=== PATIENT | male | born 1940 | race Caucasian/White ===

== ENCOUNTER → 2023-10-05 16:39 | Outpatient (REF) | payer MEDICARE, BC, SELFPAY ==
[2023-10-05 17:23] LABS: Blood Urea Nitrogen 22 mg/dl (9-20); Calcium 8.8 mg/dl (8.4-10.2); Carbon Dioxide 26 mmol/L (22-30); Chloride 99 mmol/L (98-107); Glucose 131 mg/dl (70-99); Potassium 4.5 mmol/L (3.5-5.1); Sodium 133 mmol/L (135-145); eGFR > 60.00
[2023-10-05 17:31] LABS: NT-proBNP 3480 pg/ml
== END ==
LOC: REG 16:39
PROVIDERS: ATTENDING PHYSICIAN Internal Medicine Cardiovascular Disease; FAMILY PHYSICIAN Internal Medicine
DX: I50.20 Unspecified systolic (congestive) heart failure (principal)
CPT/HCPCS: 36415; 80048; 83880

== ENCOUNTER 2023-12-14 20:23 | Inpatient (IN) | payer MEDICARE, BC, SELFPAY ==
[2023-12-14 16:00] VITALS: BP 157/84
[2023-12-14 16:20] LABS: % Basophils 0.6 % (0-2); % Eosinophils 0.5 % (0-6); % Immature Granulocytes 0.9 % (0-0.5); % Lymphocytes 15.1 % (20.5-51.1); % Monocytes 10.3 % (1.7-9.3); % Neutrophils 72.6 % (42.2-75.2); Absolute Basophils 0.1 10^3/uL (0-0.2); Absolute Immature Granulocytes 0.1 10^3/uL (0-0.05); Absolute Lymphocytes 1.3 10^3/uL (1.2-3.4); Absolute Monocytes 0.9 10^3/uL (0.1-0.6); Absolute Neutrophils 6.3 10^3/uL (1.4-6.5); Hematocrit 41.1 % (39.0-52.0); Mean Corp Hgb Conc. 34.1 g/dL (33.0-37.0); Mean Corpuscular Hgb 32.3 pg (27.0-31.0); Mean Corpuscular Volume 94.7 fL (80.0-94.0); Mean Platelet Volume 9.7 fL (7.4-10.4); Nucleated Red Blood Cells % 0 % (-); Platelet Count 217 10^3/uL (130-400); Red Blood Cell Count 4.34 10^6/uL (4.70-6.10); Red Cell Dist. Width 13.6 % (11.5-14.5); White Blood Cell Count 8.7 10^3/uL (4.8-10.8)
[2023-12-14 16:39] LABS: ALT (SGPT) 25 U/L (0-50); AST (SGOT) 22 U/L (17-59); Albumin 3.8 g/dl (3.5-5.0); Alkaline Phosphatase 85 U/L (38-126); Blood Urea Nitrogen 18 mg/dl (9-20); Calcium 8.9 mg/dl (8.4-10.2); Carbon Dioxide 27 mmol/L (22-30); Chloride 99 mmol/L (98-107); Glucose 140 mg/dl (70-99); Potassium 3.9 mmol/L (3.5-5.1); Sodium 133 mmol/L (135-145); Total Bilirubin 0.6 mg/dl (0.2-1.3); Total Protein 6.2 g/dl (6.3-8.2); eGFR > 60.00
[2023-12-14 18:01] VITALS: BP 179/95
[2023-12-14 18:29] LABS: NT-proBNP 5390 pg/ml
--- NOTE | 2023-12-14 18:58 | ED.GENMED ---
History of Present Illness
General
Chief Complaint: Malaise
Source: patient
Exam Limitations: none
Time Seen by Provider: 12/14/23 17:43
Nursing documentation reviewed up to this point in time: agreed with
Travel History
Have you had any contact with someone who has COVID-19?: No
Do you have any symptoms of coronavirus? Fever > 100 degrees, chills, cough, shortness of breath, sore throat, loss of taste or smell, muscle aches, or headache?: No
History of Present Illness
History of Present Illness:
pt is a 83 y/o M with h/o afib on eliquis, CAD, HTN, HLD, chf
here with fatigue and dyspnea
ongoing for about 2 roxann weeks, worse the last week with lower pulse ox readings at home, in the 80s at times (88%)
normally has pulse ox 92%
no dx of copd
says that he has just felt really tired with any activity
he has also noticed swellin gin the feet and legs
he formerly was on lasix and says dr. banuelos said he could stop the lasix and take it only as needed so he stopped it about 6 mo ago
he has been trying to keep his weight down
but he does think his legs look puffy
no chest pain, cough, fever, chills, nausea, vomiting
lives at home with elderly female roommate who requires a lot of care
brought in by neighbor who is helping out
Past History
Past History
ED Past Medical History: CAD, HTN, Hypercholesterolemia and Seizures
Social History
Tobacco: Non-smoker
Personal:
Living: with family
Employment: Retired
Review of Systems
Review of Systems
Allergies reviewed?: Yes
Phy Exam
Physical Exam
Physical Exam:
GENERAL: Alert , in no apparent distress
EYE: pupils equal and reactive
NECK: Supple
ENT: o/p clr, mmm.
CARDIAC: Regular rate and rhythm .+ edema 2+ pittin gb/l LE
LUNGS: Clear breath sounds bilaterally, no acute respiratory distress, no wheezes/rales/rhonchi
ABDOMEN: Soft, without focal tenderness, no r/g, no cvat, normal bowel sounds
NEUROLOGICAL: Alert and oriented, no focal neuro deficits
SKIN: Warm and dry, skin intact.
MUSCULOSKELETAL: moderate edema, cool feet but with 2+ dp pulses. neg chelly's sign
PSYCH: Normal and appropriate interaction.
Course
Orders/Labs/Results
Orders:
Orders
12/14/23 16:10
CMP [Comprehensive Metabolic Panel] Urgent
Complete Blood Count/With Diff Urgent
12/14/23 18:02
NT-proBNP Urgent
12/14/23 18:57
CR Chest - 2 Views Urgent
Comment:
Reason For Exam: sob, wheezing
12/14/23 18:58
Electrocardiogram (*1) Urgent
Reason for Study: Shortness of Breath
EKG- Treatment ONCE
12/14/23 19:19
Furosemide [Lasix] 40 mg IV NOW STA
12/14/23 20:00
COVID-19 Antigen Stat
Source: Nasal Swab
Troponin I Q6H
Urinalysis Reflex To Culture Urgent
Date Specimen was Collected: 12/14/23
Time Specimen was Collected: 19:44
Urine Microscopic Reflex Cult Urgent
Influenza A+B Rapid Molecular Stat
KAITLIN Source: Nasal Swab
Specimen Description:
12/14/23 20:02
Admit/Transfer Patient As Directed
Co-Sign Provider:
Level of Care: Inpatient admission
Assign to:: Telemetry
Physician / Group: Anand
Diagnosis: Acute HFpEF
Reason for Telemetry: Subacute Heart Failure
Date to Stop Telemetry: 12/16/23
Time to Stop Telemetry: 11:00
Reason for Hospitalization: acute hfpef
Expected length of stay greater than two midnights?: Yes
ELOS- Estimated Length of Stay in days: 2
I certify the patient meets the requirements for IP care: Yes
12/14/23 20:03
Code Status As Directed
Resuscitation Status: Do not resuscitate
Reached after discussion with pt or family/Healthcare POA: Yes
DNR Bracelet Application ONCE
12/15/23 01:45
Troponin I Q6H
12/15/23 07:45
Troponin I Q6H
12/16/23 11:00
DC Protocol for Telemetry ONCE
Abnormal Lab Results
12/14/23 12/14/23
16:10 20:00
RBC 4.34 L 10^6/uL
(4.70-6.10)
MCV 94.7 H fL
(80.0-94.0)
MCH 32.3 H pg
(27.0-31.0)
Abs Immat Gran (auto) 0.1 H 10^3/uL
(0-0.05)
Absolute Monos (auto) 0.9 H 10^3/uL
(0.1-0.6)
Immature Gran % 0.9 H %
(0-0.5)
Lymphocytes % 15.1 L %
(20.5-51.1)
Monocytes % 10.3 H %
(1.7-9.3)
Sodium 133 L mmol/L
(135-145)
Creatinine 0.5 L mg/dL
(0.7-1.3)
Glucose 140 H mg/dl
(70-99)
Total Protein 6.2 L g/dl
(6.3-8.2)
Urine Ketones Trace A
(Negative)
Ur Occult Blood Reflex Trace A
(Negative)
Leukocyte Esterase Rfl Trace A
(Negative)
Urine Albumin (Reflex) 1+ A
(Neg - Trace)
12/14/23 16:10
12/14/23 16:10
Vital Signs
Initial and Last Documented VS:
Initial Vital Signs
Temp Pulse Resp BP Pulse Ox
97.5 F 79 18 157/84 94
12/14/23 16:00 12/14/23 16:00 12/14/23 16:00 12/14/23 16:00 12/14/23 16:00
Last Documented Vital Signs
Temp Pulse Resp BP Pulse Ox
97.5 F 90 22 199/95 97
12/14/23 16:00 12/14/23 21:30 12/14/23 21:30 12/14/23 20:01 12/14/23 21:30
MDM/Problems Addressed
Differential Diagnosis Includes:
CHF, hypoxia, pneumonia, copd
MDM/Problems Addressed:
83 y/o M with h/o afib on eliquis, cad, was on lasix up unti labout 6 mo ago whne he says lakisha told him he could stop it and take it only as needed; has had 2 weeks of inc dyspnea on exertion and some edema in legs; pulse ox down to 80sthe past
few days;
bnp 5000, mild edema on cxr, cardiomegaly; no cp; vitals stable rate controlled afib; lasix ordered and on 2L
will require admission for IV diuresis and o2;
appreciate radiology read on cxr showing pna
added abx
d/w hospitalist.
*Critical Care Note
Total Time (30-74mins, 75-104mins- exclusive of procedures): Not Applicable
ED Attending Note
-
Portions of this chart may have been created with voice recognition software.� Occasional wrong word or��sound alike� substitutions may have occurred due to the inherent limitations of voice recognition software.
Discharge Plan
Departure
Patient Disposition: Admit
Date of Disposition: 12/14/23
Time of Disposition: 19:24
Admit to: Telemetry
Presentation/result/management discussed w/ accepting MD/DO: Hospitalist
Condition: Fair
Covid-19: Not Applicable
Discharge Problem:
Dyspnea, Hypoxia, Acute exacerbation of CHF (congestive heart failure)
Interventions
Interventions:
*Risk Screen - Suicide Last Done: 12/14/23 18:37
*General Assessment Last Done: 12/14/23 18:37
*Neglect/Abuse Screening Last Done: 12/14/23 18:37
ED- Fall Risk Assessment Last Done: 12/14/23 18:37
*ED COVID-19 Vaccine History Last Done: 12/14/23 20:23
[2023-12-14 19:00] VITALS: BP 184/88
--- NOTE | 2023-12-14 19:30 | HPS.HSE ---
Addendum entered and electronically signed by Chelle Michel DO 12/14/23 21:34:
A/P addendum:
CXR noting possible LLL pneumonia. Pt afebrile wtihout leukocytosis
He was ordered rocephin/azithromycin x 1 dose in ER
Will check procalcitonin with plan to continue Abx if elevated.
Original Note:
Family Physician
-
Family Physician: Jamil Villagomez
Chief Complaint
-
HE x 2 weeks
History of Present Illness
83yo M with PMH HFpEF (TTE 09/2023 EF improvement to 50-55%, Mild/Mod AR/MR/TR, PaSP increase to 48mmHg), Permanent Atrial Fibrillation on Eliquis, CAD s/p CABG (2015), HTN/HLD, Hx Seizures presents to ER with friend at bedside for support. Pt lives
with an elderly friend and ambulates with cane at baseline. Over last few months he has had worsening HE, conversational dyspnea, LE edema with orthopnea and nonproductive cough. +mild wheezing complaint. Denies home oxygen or TRINA/cpap history. He
states in July he followed with web site administrator Dr. Arenas who stated that he could cut down his lasix; he thus has taken it very infrequently since. He does report coughing with 'eating cookies' denying past history of dysphagia. Denies fever,
chills, dizziness/LH, CP, Palps, abd pain, n/v/d/c, dysuria, calf or leg pain. He incidentally reports a left eye infection s/p course of keflex a few weeks ago
ER course: Pt presents with RR 28, Personally removed NC in ER with observation of saturation to 87% RA, improved on 2LNC. Other V.S.S. Na 133, BUN/Cr 180.5, BG 140, BNP 5390, WBC 8.7K, Hgb 14.0 g/dL. CXR Cardiomegaly, possible perivascular
congestion on personal review. S/P 40mg IV lasix in ER.
Medical History
Past Medical History
Past Medical History: Reports Other (HFpEF (TTE 09/2023 EF improvement to 50-55%, Mild/Mod AR/MR/TR, PaSP increase to 48mmHg), Permanent Atrial Fibrillation on Eliquis, HTN/HLD, Hx Seizures)
Past Surgical History: Reports Other (CABG (2016), Cataracts)
Social History
Tobacco: Non-smoker
Alcohol: Daily (drinking 1 glass of scotch daily, denies liver disease. )
Drug: None
Personal: Single
Living: Other (Friend - Sofie)
Family History
Family History: Other (Father with CAD s/p [place], heart failure)
Allergies / Home Medications
Allergies reflects when Allergies were last updated in [employer].
Home Medications with original date entered in [employer]
Allergy/Medication List:
Allergies
Allergy/AdvReac Type Severity Reaction Status Date / Time
No Known Allergies Allergy Verified 10/01/21 18:15
Home Medications
ascorbic acid (vitamin C) 500 mg tablet (Vitamin C) 500 mg PO DAILY Supplement 07/19/16
cyanocobalamin (vitamin B-12) 1,000 mcg tablet 1,000 mcg PO DAILY Supplement 07/19/16
apixaban 5 mg tablet (Eliquis) 5 mg PO BID Blood clot prevention/tx 10/02/21
carbamazepine 200 mg tablet 200 mg PO TID Seizures 10/02/21
lisinopril 10 mg tablet 10 mg PO DAILY Heart Failure #30 tabs 10/04/21
acetaminophen 500 mg tablet 1,000 mg PO HS 12/14/23
acetaminophen 500 mg tablet 500 mg PO Q4H PRN mild pain 12/14/23
calcium carbonate 500 mg PO DAILY 12/14/23
furosemide 20 mg tablet 20 mg PO DAILY PRN swelling 12/14/23
metoprolol succinate 50 mg tablet,extended release 24 hr 50 mg PO HS 12/14/23
multivitamin 1 tab PO DAILY 12/14/23
nitroglycerin 0.4 mg sublingual tablet 0.4 mg sublingual Q5GU2TES PRN chest pain 12/14/23
rosuvastatin 20 mg tablet 20 mg PO DAILY 12/14/23
Review of Systems
-
A 12 point ROS was completed and negative except as noted: Yes
Physical Exam
Vital Signs
Vital Signs
Temp Pulse Resp BP Pulse Ox
97.5 F 73 24 179/95 96
12/14/23 16:00 12/14/23 18:30 12/14/23 18:30 12/14/23 18:01 12/14/23 18:30
Physical Exam
General: Well Developed, Well Nourished and No Apparent Distress
HEENT: NormoCephalic, Moist mucous membranes, Atraumatic, PERRLA and Other (Left eye skin tag)
Respiratory: Crackles (mild bibasilar crackles) and Other (no wheezing, or accessory muscle use. )
Cardiac: S1/S2, Regular Rhythm and Other (Sternotomy incision well approximated. ); No Murmur or Rub
GI: Soft, Non Tender, Non Distended, Normal Bowel Sounds and Other (+obese. ); No Organomegaly
Rectal: Deferred by Provider
Genito-urinary: No No costovertebral tender or Charles
Musculoskeletal: No Clubbing, No Cyanosis, Edema, Left Lower Extremity (4+), Edema, Right Lower Extremity (4+) and No Edema
Skin: Warm and Dry; No Rash
Neuro: Awake, Alert, Oriented, AO x 3, No Motor Deficits and Nonfocal/grossly intact
Hematologic/Lymphatic: No Lymphadenopathy
Psych: Calm
Laboratory Results
-
12/14/23 16:10
12/14/23 16:10
Laboratory Results
Total Bilirubin 0.6 mg/dl (0.2-1.3) 12/14/23 16:10
AST 22 U/L (17-59) 12/14/23 16:10
ALT 25 U/L (0-50) 12/14/23 16:10
Alkaline Phosphatase 85 U/L (38-126) 12/14/23 16:10
Data Reviewed
-
Diagnostic Radiology: Image Personally Visualized and interpreted
Medical Tests (Nuc Med, Echo, EKG etc): Image Personally Visualized and interpreted
Lab Data: Labs Reviewed by me
Old Records: Reviewed
Impression/Plan
-
Acute on Chronic HFpEF
- 4+ pitting edema with associated SOB/HE x months, worsening recently
- BNP 5390. CXR with cardiomegaly, personal review with perivasc congestion
- Recent TTE 09/2023: EF 45-50% improved to 50-55%, Mild-Mod AR/MR/TR, PaSP increased 38->48mmHg; will defer repeat to cardio
- S/P 40mg IV lasix in ER. Will order 40mg IV BID. Trend I&O and Daily wts
- Continue GDMT: JABARI-I, BB
- 1200cc fluid restriction
- Consult Cardiology
Acute Hypoxic Respiratory Failure
- Likely 2/2 above. Sat 87% RA on personal evaluation. Improved on 2LNC
- Wean as tolerated with treatment as above
- Check COVID/Flu for completeness
- Continue pulm toiletting: Nebs, IS
Hyponatremia
- Na 133. Likely hypoosmotic hypervolemic etiology
- Trend with IV diuresis
Atrial Fibrillation
- Permanent. Continue home BB/eliquis.
Hx CAD s/p CABG / HTN / HLD
- Continue home aspirin/statin/BB/JABARI-I
- Continue home statin
Seizure Disorder - stable on home carbamazepine
Diet: Cardiac, 1200cc fluid restriction
DVT Ppx: Eliquis
Code Status: DNR/DNI, confirmed with patient at bedside.
[2023-12-14 20:01] VITALS: BP 199/95
[2023-12-14] MEDS: LASIX 40 MG IV (20:01)
[2023-12-14 20:03] VITALS: BMI 26.1
[2023-12-14 20:12] LABS: Urine Albumin 1+ (Neg - Trace); Urine Bilirubin Negative (Negative); Urine Character Clear (Clear); Urine Color Yellow; Urine Glucose Negative (Negative); Urine Ketone Trace (Negative); Urine Leukocyte Trace (Negative); Urine Nitrite Negative (Negative); Urine Occult Blood Trace (Negative); Urine Urobilinogen Negative (Neg - 1+)
[2023-12-14 20:20] LABS: Urine Mucus Few
[2023-12-14 20:21] LABS: Urine Red Blood Cell 0-2 /HPF (0-2); Urine White Cell 0-2 /HPF (0-5)
[2023-12-14 20:28] LABS: COVID-19 Antigen Negative (Negative)
[2023-12-14 20:36] LABS: Troponin I < 0.012 ng/ml
[2023-12-14] MEDS: ROCEPHIN 1000 MG IV (21:48)
[2023-12-14] MEDS: ZITHROMAX INFUSION 250 IV (21:53)
[2023-12-14 22:29] VITALS: BMI 24.9
[2023-12-14 23:02] VITALS: BMI 24.9
[2023-12-14 23:10] VITALS: BP 163/87
[2023-12-14] MEDS: TOPROL XL 50 MG PO (23:43)
[2023-12-14] MEDS: TYLENOL 1000 MG PO (23:43)
[2023-12-14] MEDS: ELIQUIS 5 MG PO (23:43)
[2023-12-14] MEDS: TEGRETOL 200 MG PO (23:43)
--- NOTE | 2023-12-15 | PTCARENOTE ---
Patient admitted to room 401-1. Ambulatory from stretcher to bed with cane and one assist. On 2l of oxygen via NC, saturating 96%. +2 edema in lower extremities, +3 to left foot. Patient given lasix in ED, condom cath applied #25. He denies
discomfort. Patient instructed to ring prior to getting out of bed, he verbalized understanding. Call sykes in reach.
[2023-12-15 03:15] LABS: Troponin I 0.014 ng/ml
[2023-12-15 03:55] VITALS: BP 134/79
[2023-12-15 06:00] VITALS: BMI 24.9
[2023-12-15 07:00] VITALS: BP 161/82
--- NOTE | 2023-12-15 07:56 | W.PN.HOSP.TC ---
Today's Communication/Plan
-
see bold
Assessment / Plan
Assessment / Plan
Gen: NAD, Awake and alert
Eyes: EOMI, PERRLA, no scleral icterus.
Neck: supple.
CV: tachy, irreg/irreg, +S1/S2, no m/r/g.
Resp: rales in the bases, L>R
Abd: +BS, soft, NT, ND
Skin: No rashes. 2-3+ B/L LE edema
Neuro: CN 2-12 intact, non-focal.
Psych: Normal mood and affect.
CXR: Findings suggesting a new moderate left lower lobe pneumonia.
Acute hypoxemic respiratory insufficiency due to acute on Chronic HFpEF and possibly LLL PNA:
-4+ pitting edema with associated SOB/HE x months, worsening recently
-COVID/Flu NEG
-proBNP 5390
-recent TTE 09/2023: EF 45-50% improved to 50-55%, Mild-Mod AR/MR/TR, PASP increased 38->48mmHg; will defer repeat to cardio
-cont IV lasix
-daily wts, I/Os, FR 1200cc/day
-cont BB
-currently on 2L NC O2
-c/s Cardiology
-s/p Azithro/Rocephin, awaiting procal (doubt bacterial PNA)
Other problems:
Hyponatremia, mild
Permanent Atrial Fibrillation: BB/eliquis
CAD s/p CABG: Cont BB/statin
Essential HTN: cont ACEi/BB
HLD: cont statin
Seizure Disorder: Cont carbamazepine
DNR/Eliquis
Anticipated Discharge: 24 - 48 hours
Subjective/Interval History
-
Date of Service: December 15, 2023
Reports mild SOB. Denies CP.
Objective Data
-
Labs:
Laboratory Results
12/15/23
05:38
WBC Pending
Hgb Pending
Hct Pending
Plt Count Pending
Sodium Pending
Potassium Pending
Chloride Pending
Carbon Dioxide Pending
BUN Pending
Creatinine Pending
Glucose Pending
Calcium Pending
Vital Signs:
Vital Signs
Temp Pulse Resp BP Pulse Ox
98.8 F 73 18 134/79 95
12/15/23 03:55 12/15/23 07:48 12/15/23 07:48 12/15/23 03:55 12/15/23 07:48
I&O
12/14/23 12/15/23 12/16/23
06:59 06:59 06:59
Intake Total 240 / 240
Output Total 1750 / 1750
Balance -1510 / -1510
--- NOTE | 2023-12-15 08:24 | CON.CAR ---
Addendum entered and electronically signed by Spenser Mijares MD 12/15/23 11:03:
I saw and examined the patient.
The RIG SITE ENGINEER's note was reviewed and I agree with the note.
Comment: 83M with HFmEF admitted with HF. As outpatient, he's not a fan of diuretic and I wondered if I had him euvolemic at goal weight. It seems, in retrospect, that I did not.
- diurese to new goal weight
- update echocardiogram given clinical change, labile EF, and moderate valve disease
Original Note:
Consultation
Consultation Request
Date/Time Consultation Requested: 12/14/232248
Date/Time Consultation Performed: 12/15/23830
Requesting Provider: Dr. Michel
Performing Provider: Tonia LOFTON for Dr. Mijares
Reason for Consultation: CHF
Medical History
-
Chief Complaint: SOB
History of Present Illness:
83 y/o male with HFimpEF (most recent EF 50-55%), mild to moderate MR, AR, TR, CAD with hx CABG 2016, permanent AFIB on Eliquis, hypertension, dyslipidemia who is here for SOB with sats in 80's on his pulse ox. He has had productive cough. He is
admitted for management of CHF exacerbation. Also concern for PNA on CXR, so ABX given while procal is pending. He denies any fever or chills. He denies any weight gain. He does have LE edema and abdominal bloating. Does endorse some PND. Only
occasionally takes lasix as OP.
Past Medical History
Past Medical History: Arrhythmias, CAD, CHF, HTN, Hypercholesterolemia and Valvular Disease
Social History
Tobacco: Non-Smoker
Family History
Family History: Reviewed & Not Pertinent
Allergies / Home Medications
Allergy/AdvReac Type Severity Reaction Status Date / Time
No Known Allergies Allergy Verified 10/01/21 18:15
�Medication �Instructions �Recorded �Confirmed �Type
ascorbic acid (vitamin C) 500 mg 500 mg PO DAILY Supplement 07/19/16 12/14/23 History
tablet (Vitamin C)
cyanocobalamin (vitamin B-12) 1,000 mcg PO DAILY Supplement 07/19/16 12/14/23 History
1,000 mcg tablet
apixaban 5 mg tablet (Eliquis) 5 mg PO BID Blood clot 10/02/21 12/14/23 History
prevention/tx
carbamazepine 200 mg tablet 200 mg PO TID Seizures 10/02/21 12/14/23 History
lisinopril 10 mg tablet 10 mg PO DAILY Heart Failure #30 10/04/21 12/14/23 Rx
tabs
acetaminophen 500 mg tablet 1,000 mg PO HS Pain 12/14/23 12/14/23 History
acetaminophen 500 mg tablet 500 mg PO Q4H PRN mild pain 12/14/23 12/14/23 History
calcium carbonate 500 mg PO DAILY Supplement 12/14/23 12/14/23 History
furosemide 20 mg tablet 20 mg PO DAILY PRN swelling 12/14/23 12/14/23 History
metoprolol succinate 50 mg 50 mg PO HS Blood Pressure 12/14/23 12/14/23 History
tablet,extended release 24 hr
multivitamin 1 tab PO DAILY Supplement 12/14/23 12/14/23 History
nitroglycerin 0.4 mg sublingual 0.4 mg sublingual [id number] PRN 12/14/23 12/14/23 History
tablet chest pain
rosuvastatin 20 mg tablet 20 mg PO DAILY High Cholesterol 12/14/23 12/14/23 History
Review of Systems
-
History Source: Patient
All other systems: Negative unless noted
Respiratory: Cough and Trouble Breathing
Musculoskeletal: Edema
Physical Exam
Vital Signs
Temp Pulse Resp BP Pulse Ox
97.7 F 73 18 161/82 95
12/15/23 07:00 12/15/23 07:48 12/15/23 07:48 12/15/23 07:00 12/15/23 07:48
Lab Results
Troponin I 0.014 ng/ml 12/15/23 01:43
Mvf-P-Ohrzxobpuyy Pept 5390 pg/ml 12/14/23 18:02
Physical Exam
General: Well Developed, Well Nourished and No Apparent Distress
HEENT: Normocephalic and Anicteric
Respiratory: Other (diminished to b/l bases; on O2 by NC)
Cardiac: Irregular Rhythm and Peripheral Edema (moderate BLE edema)
Genito-urinary: Clear Urine
Musculoskeletal: Edema
Skin: Warm and Dry
Neuro: Awake, Alert and Oriented
Psych: Calm
Impression / Plan
-
Hosri-lm-lgfnhkx HFimpEF:
-BNP elevated, LE edema noted. His weight is not up, actually slightly down. Has considered his dry weight 182 and he is currently 178, so likely need to adjust dry weight goal.
-Echo 09/20/23: EF 50-55%. Mild/moderate mitral regurgitation. Mild to moderate aortic regurgitation. Mild/moderate tricuspid regurgitation. PAP 48 mmHG, Dilated aortic root and ascending aorta (SOV 4.7 cm, ST junction 4.3 cm, Asc Ao 4.5 cm).
-agree with IV diuresis, which requires intensive monitoring- not ordered, so I will order once AM labs are back
Possible PNA:
-no fever chills
-s/p IV ABX, awaiting procalcitonin
-per primary
CAD s/p CABG:
-stable without CP
-continue Eliquis, BB, statin
Permanent AFIB:
-rate-controlled
-continue metoprolol and Eliquis
Data Reviewed
-
EKG: Tracing Personally Visualized and interpreted (AFIB 72 BPM, no acute change from previous)
Radiology: Report Reviewed by me (CXR: Findings suggestinga new moderate left lower lobe pneumonia. Cardiomegaly. Stable)
Medical Tests (Nuc Med, Echo etc): Report Reviewed by me (Echo 09/20/23: EF 50-55%. Mild/moderate mitral regurgitation. Mild to moderate aortic regurgitation. Mild/moderate tricuspid regurgitation. PAP 48 mmHG, Dilated aortic root and ascending aorta
(SOV 4.7 cm, ST junction 4.3 cm, Asc Ao 4.5 cm).)
Labs: Labs Reviewed by me
[2023-12-15 08:44] LABS: % Basophils 0.8 % (0-2); % Eosinophils 0.9 % (0-6); % Lymphocytes 17.6 % (20.5-51.1); % Monocytes 14.9 % (1.7-9.3); % Neutrophils 64.8 % (42.2-75.2); Absolute Basophils 0.1 10^3/uL (0-0.2); Absolute Eosinophils 0.1 10^3/uL (0-0.7); Absolute Immature Granulocytes 0.1 10^3/uL (0-0.05); Absolute Lymphocytes 1.4 10^3/uL (1.2-3.4); Absolute Monocytes 1.2 10^3/uL (0.1-0.6); Absolute Neutrophils 5.1 10^3/uL (1.4-6.5); Hematocrit 39.7 % (39.0-52.0); Hemoglobin 13.5 g/dL (13.0-18.0); Mean Corpuscular Hgb 31.8 pg (27.0-31.0); Mean Corpuscular Volume 93.6 fL (80.0-94.0); Mean Platelet Volume 10.4 fL (7.4-10.4); Nucleated Red Blood Cells % 0 % (-); Platelet Count 212 10^3/uL (130-400); Red Blood Cell Count 4.24 10^6/uL (4.70-6.10); Red Cell Dist. Width 13.6 % (11.5-14.5); White Blood Cell Count 7.9 10^3/uL (4.8-10.8)
[2023-12-15 08:46] LABS: Troponin I 0.013 ng/ml
[2023-12-15] MEDS: OSCAL CAL 500 500 MG PO (08:53)
[2023-12-15] MEDS: CRESTOR 20 MG PO (08:53)
[2023-12-15] MEDS: ZESTRIL 10 MG PO (08:53)
[2023-12-15] MEDS: VITAMIN B-12 1000 MCG PO (08:53)
[2023-12-15] MEDS: VITAMIN C 500 MG PO (08:54)
[2023-12-15] MEDS: THERAGRAN 1 TABLET PO (08:54)
[2023-12-15] MEDS: TEGRETOL 200 MG PO ×3 (08:54→22:13)
[2023-12-15] MEDS: ELIQUIS 5 MG PO ×2 (08:54→21:09)
--- NOTE | 2023-12-15 09:52 | PTOTSP ---
Addendum entered and electronically signed by ST Remberto 12/15/23 09:59:
Recommendations continued:
4) Consider VSE to r/o silent aspiration given recent CXR
Original Note:
Speech Therapy
Patient's speech and language appeared to be WNL. Patient did appear to be mildly confused.
Swallowing Complaints: Patient stated that he occasionally has difficulty with solids when he has excessive mucous. Patient reports having seasonal allergies which causes his post-nasal drip.
Swallowing Function: PHARMACY MANAGER observed patient with several bites of cracker and sips of thin liquids in which patient appeared to tolerate as he did not exhibit any overt clinical s/sx of aspiration or difficulty with mastication/ manipulation. Of note,
when prompted to cough during oral motor evaluation, large mucous was expelled from the oral cavity.
Recommendations:
1) Continuation of regular consistency solids and thin liquids
2) Standard aspiration precautions
3) Medications as tolerated
Plan: PHARMACY MANAGER will continue to follow; pending hospitalization.
[2023-12-15 10:40] LABS: Procalcitonin < 0.05 ng/ml (0.0-0.25)
[2023-12-15 10:45] LABS: Blood Urea Nitrogen 22 mg/dl (9-20); Calcium 8.8 mg/dl (8.4-10.2); Carbon Dioxide 30 mmol/L (22-30); Chloride 99 mmol/L (98-107); Estimated Creatinine Clearance 99 ml/min; Glucose 68 mg/dl (70-99); HDL Cholesterol 67 mg/dl; LDL Cholesterol, Calculated 75 mg/dl; Potassium 3.5 mmol/L (3.5-5.1); Sodium 136 mmol/L (135-145); Total Cholesterol 161 mg/dl (50-199); Triglyceride 99 mg/dl (10-149); Very Low Density Lipoprotein 19 mg/dl (0-30); eGFR > 60.00
[2023-12-15 11:00] VITALS: BP 138/72
[2023-12-15 11:52] LABS: Glycohemoglobin (HgbA1c) 5.8 % (4.0-5.6)
[2023-12-15] MEDS: LASIX 40 MG IV ×2 (12:06→16:04)
[2023-12-15] MEDS: FLUSH (NSS) 2 FLUSH IV ×2 (12:07→16:05)
[2023-12-15] MEDS: KCL 20 MEQ PO ×2 (13:44→16:04)
[2023-12-15 15:00] VITALS: BP 154/74
--- NOTE | 2023-12-15 16:12 | CM ---
Patient seen at bedside. Patient states that he lives with his significant other in a 2 story home. CM attempted to reach Sig other and was unable to do so, no VM able to be left. Patient confirmed Dr. Villagomez was his physician and he uses the [facility]
on [facility]. Patient asked for VN referral at discharge and indicated that he does not have any home O2 at this time. Patient denied ever going to SNF and stated that he did not have [facility] in the past. CM will continue to try to
reach patient significant other and will continue to follow for discharge planning needs.
Plan; home with VN vs SNF; watch for home O2 needs.
[2023-12-15 19:38] VITALS: BP 117/66
[2023-12-15] MEDS: TYLENOL 1000 MG PO (22:13)
[2023-12-15] MEDS: TOPROL XL 50 MG PO (22:14)
[2023-12-15 23:55] VITALS: BP 127/82
[2023-12-16 03:46] VITALS: BP 140/78
[2023-12-16 05:31] LABS: Blood Urea Nitrogen 33 mg/dl (9-20); Calcium 8.6 mg/dl (8.4-10.2); Carbon Dioxide 34 mmol/L (22-30); Chloride 98 mmol/L (98-107); Estimated Creatinine Clearance 85 ml/min; Glucose 95 mg/dl (70-99); Potassium 4.3 mmol/L (3.5-5.1); Sodium 135 mmol/L (135-145); eGFR > 60.00
[2023-12-16 06:00] VITALS: BMI 24.3
[2023-12-16 07:19] VITALS: BP 111/75
[2023-12-16] MEDS: VITAMIN C 500 MG PO (08:38)
[2023-12-16] MEDS: ZESTRIL 10 MG PO (08:38)
[2023-12-16] MEDS: THERAGRAN 1 TABLET PO (08:38)
[2023-12-16] MEDS: LASIX 40 MG IV ×2 (08:39→17:05)
[2023-12-16] MEDS: CRESTOR 20 MG PO (08:41)
[2023-12-16] MEDS: ELIQUIS 5 MG PO ×2 (08:41→19:58)
[2023-12-16] MEDS: TEGRETOL 200 MG PO ×3 (08:41→21:54)
[2023-12-16] MEDS: OSCAL CAL 500 500 MG PO (08:42)
[2023-12-16] MEDS: VITAMIN B-12 1000 MCG PO (08:42)
--- NOTE | 2023-12-16 10:04 | W.PN.CD ---
Today's Communication / Plan
-
- continue diuresis to new goal weight
- when I talked to him about a new goal weight, new dose, etc., he said,'I think I just have to take the medicine regularly...'
- update echocardiogram
Impression / Plan
-
Impression: 83M with HFmEF admitted with HF. As outpatient, he's not a fan of diuretic and I wondered if I had him euvolemic at goal weight - I did not.
Plan
Wbitt-ki-wffibqg HFimpEF:
- continue diuresis to new goal weight
- daily weights, I/o
- when I talked to him about a new goal weight, new dose, etc., he said,'I think I just have to take the medicine regularly...'
HFmEF
- BB/JABARI
- we can consider SLGT2i and MRA as OP
- update echocardiogram given clinical change, labile EF, and moderate valve disease
Possible PNA:
CAD s/p CABG:
-stable without CP
-continue Eliquis, BB, statin
Permanent AFIB:
-rate-controlled
-continue metoprolol and Eliquis
Subjective: Dyspnea improved
Data:
Echo 09/20/23: EF 50-55%. Mild/moderate mitral regurgitation. Mild to moderate aortic regurgitation. Mild/moderate tricuspid regurgitation. PAP 48 mmHG, Dilated aortic root and ascending aorta (SOV 4.7 cm, ST junction 4.3 cm, Asc Ao 4.5 cm).
Laboratory Data
12/15/23 12/16/23
05:38 04:32
Hgb 13.5
Creatinine 0.7
Selected Entries
12/14/23
22:29 12/15/23
06:00 12/16/23
06:00
Actual Weight 178 lb 5 oz 178 lb 7 oz 174 lb
Generic Name Dose Route Start Last Admin
Trade Name Freq PRN Reason Stop Dose Admin
Apixaban 5 mg 12/14/23 22:29 12/16/23 08:41
Apixaban (Eliquis) 5 Mg Tablet PO 01/11/24 22:28 5 mg
BID DEBORAH
Lisinopril 10 mg 12/15/23 08:00 12/16/23 08:38
Lisinopril 10 Mg Tablet PO 01/12/24 07:59 10 mg
DAILY DEBORAH
Metoprolol Succinate 50 mg 12/14/23 22:29 12/15/23 22:14
Metoprolol 50 Mg Extended Release Tablet PO 01/11/24 22:28 50 mg
HS DEBORAH
Rosuvastatin Calcium 20 mg 12/15/23 08:00 12/16/23 08:41
Rosuvastatin (Crestor) 20 Mg Tablet PO 01/12/24 07:59 20 mg
DAILY DEBORAH
Furosemide 40 mg 12/15/23 12:00 12/16/23 08:39
Furosemide 40 Mg (10 Mg/Ml) 4 Ml Vial IV 01/12/24 11:59 40 mg
BID AT 0800,1600 DEBORAH
Physical Exam
Vital Signs/Labs
Vital Signs
Temp Pulse Resp BP Pulse Ox
36.4 C 73 16 111/75 98
12/16/23 07:19 12/16/23 08:39 12/16/23 07:19 12/16/23 08:39 12/16/23 07:19
12/15/23 12/16/23 12/17/23
06:59 06:59 06:59
Actual Weight 178 lb 7 oz 174 lb
12/15/23 05:38
12/16/23 04:32
Magnesium 2.0 mg/dl (1.6-2.3) 12/15/23 05:38
Triglycerides 99 mg/dl (10-149) 12/15/23 05:38
LDL Cholesterol, Calc 75 mg/dl 12/15/23 05:38
VLDL Cholesterol, Calc 19 mg/dl (0-30) 12/15/23 05:38
HDL Cholesterol 67 mg/dl 12/15/23 05:38
12/14/23
18:02
Uqt-C-Vrayjeietoa Pept 5390
LAB Results
12/14/23 12/15/23 12/15/23
20:00 01:43 07:32
Troponin I < 0.012 0.014 0.013
Physical Exam
Constitutional: No acute distress
EENT: Anicteric and Moist mucous membranes
Cardiovascular: Systolic murmur absent, Diastolic murmur absent, Rhythm/rate is irregular and Pedal edema present
Respiratory: Respiratory effort normal
GI: Soft, Distention absent, Non tender and Normal bowel sounds
Neuro/Psych: Alert and Oriented
Data Reviewed
-
Date of Service: December 16, 2023
[2023-12-16 11:42] VITALS: BP 121/69
--- NOTE | 2023-12-16 13:10 | W.PN.HOSP.TC ---
Today's Communication/Plan
-
Diuresis
Rpt CXR
ECHO in am
Assessment / Plan
Assessment / Plan
CVS: S1-S2 normal, sm at apex
Chest: rales left
Abdomen: Soft, NT / Bowel sounds present
Extremities: B/L LE edema
ADULT PSYCHIATRIST: Non focal exam
CXR: Findings suggesting a new moderate left lower lobe pneumonia.
#Acute hypoxemic respiratory insufficiency due to acute on Chronic HFpEF and possibly LLL PNA:
-4+ pitting edema with associated SOB/HE x months, worsening recently
-COVID/Flu NEG
-proBNP 5390
-recent TTE 09/2023: EF 45-50% improved to 50-55%, Mild-Mod AR/MR/TR, PASP increased 38->48mmHg; will defer repeat to cardio
-cont IV lasix
-daily wts, I/Os, FR 1200cc/day
-cont BB
-currently on 2L [place] O2, wean as tolerated
-Cardiology following
-Repeat echo
-s/p Azithro/Rocephin
-Rpt CXR, if showing Pneumonia, will restart AB (procal not always reliable )
-Pt has productive cough
# Mitral regurgitation
#Hyponatremia, mild, likely from CHF
#Permanent Atrial Fibrillation: BB/Eliquis
#CAD s/p CABG: Cont BB/statin
#Essential HTN: cont ACEi/BB
#HLD: cont statin
#Seizure Disorder: Cont carbamazepine
#Chronic back pain and sciatica
#DVT Prophylaxis-Eliquis
#DNR
Anticipated Discharge: 24 - 48 hours
Subjective/Interval History
-
Date of Service: December 16, 2023
Objective Data
-
Labs:
Laboratory Results
12/16/23
04:32
Sodium 135
Potassium 4.3
Chloride 98
Carbon Dioxide 34 H
BUN 33 H
Creatinine 0.7
Glucose 95
Calcium 8.6
Vital Signs:
Vital Signs
Temp Pulse Resp BP Pulse Ox
97.7 F 66 17 121/69 97
12/16/23 11:42 12/16/23 11:42 12/16/23 11:42 12/16/23 11:42 12/16/23 11:42
I&O
12/15/23 12/16/23 12/17/23
06:59 06:59 06:59
Intake Total 240 / 240 1260 / 1260
Output Total 1750 / 1750 3325 / 3325
Balance -1510 / -1510 -2064 / -2064
--- NOTE | 2023-12-16 13:48 | PTCARENOTE ---
Reviewed medications with patient's daughter. Toprol should be decreased to 25 mg po daily and he takes it in the evening. MD notified. Dose reduced - timing should be evening tomorrow. Watch heart rate and maintain tele. Primidone 50 mg he also
takes in the evening. MD notified and ordered. First dose to be taken this evening.
[2023-12-16 15:00] VITALS: BP 111/61
[2023-12-16 19:00] VITALS: BP 104/70
[2023-12-16] MEDS: TYLENOL 1000 MG PO (21:54)
[2023-12-16] MEDS: TOPROL XL 50 MG PO (21:55)
[2023-12-16 23:08] VITALS: BP 158/78
[2023-12-17] VITALS (8 sets, daily range): BP systolic 120–156; BP diastolic 65–81; PULSE 73–97; O2SAT 95–96; BMI 24.0
--- NOTE | 2023-12-17 07:54 | W.PN.CD ---
Today's Communication / Plan
-
po lasix today
wean oxygen, if unable resume IV lasix
echo
possible discharge today vs tomorrow
Impression / Plan
-
Impression: 83M with HFmEF admitted with HF. As outpatient, he's not a fan of diuretic and I wondered if I had him euvolemic at goal weight - I did not.
Plan
Avvdf-pi-yspfhcz HFimpEF:
- continue diuresis to new goal weight
-Dr Mijares transitioned to 40mg po today, if can wean off oxygen would stick with this for discharge and new dry weight
- daily weights, I/o
- Per discussions with Dr Mijares, med compliance seems to be an issue.
HFmEF
- BB/JABARI
- we can consider SLGT2i and MRA as OP
- update echocardiogram given clinical change, labile EF, and moderate valve disease
CAD s/p CABG:
-stable without CP
-continue Eliquis, BB, statin
Permanent AFIB:
-rate-controlled
-continue metoprolol and Eliquis
Subjective: Dyspnea improved, he is not enjoying oxygen therapy
Data:
Echo 09/20/23: EF 50-55%. Mild/moderate mitral regurgitation. Mild to moderate aortic regurgitation. Mild/moderate tricuspid regurgitation. PAP 48 mmHG, Dilated aortic root and ascending aorta (SOV 4.7 cm, ST junction 4.3 cm, Asc Ao 4.5 cm).
Laboratory Data
12/15/23 12/16/23
05:38 04:32
Hgb 13.5
Creatinine 0.7
Selected Entries
12/14/23
22:29 12/15/23
06:00 12/16/23
06:00
Actual Weight 178 lb 5 oz 178 lb 7 oz 174 lb
Generic Name Dose Route Start Last Admin
Trade Name Freq PRN Reason Stop Dose Admin
Apixaban 5 mg 12/14/23 22:29 12/16/23 08:41
Apixaban (Eliquis) 5 Mg Tablet PO 01/11/24 22:28 5 mg
BID DEBORHA
Lisinopril 10 mg 12/15/23 08:00 12/16/23 08:38
Lisinopril 10 Mg Tablet PO 01/12/24 07:59 10 mg
DAILY DEBORAH
Metoprolol Succinate 50 mg 12/14/23 22:29 12/15/23 22:14
Metoprolol 50 Mg Extended Release Tablet PO 01/11/24 22:28 50 mg
HS DEBORAH
Rosuvastatin Calcium 20 mg 12/15/23 08:00 12/16/23 08:41
Rosuvastatin (Crestor) 20 Mg Tablet PO 01/12/24 07:59 20 mg
DAILY DEBORAH
Furosemide 40 mg 12/15/23 12:00 12/16/23 08:39
Furosemide 40 Mg (10 Mg/Ml) 4 Ml Vial IV 01/12/24 11:59 40 mg
BID AT 0800,1600 DEBORAH
Physical Exam
Vital Signs/Labs
Vital Signs
Temp Pulse Resp BP Pulse Ox
97.5 F 79 22 156/70 100
12/17/23 03:24 12/17/23 03:24 12/17/23 03:24 12/17/23 03:24 12/17/23 03:24
12/16/23 12/17/23 12/18/23
06:59 06:59 06:59
Actual Weight 78.925 kg 78.046 kg
12/15/23 05:38
12/16/23 04:32
Magnesium 2.0 mg/dl (1.6-2.3) 12/15/23 05:38
Triglycerides 99 mg/dl (10-149) 12/15/23 05:38
LDL Cholesterol, Calc 75 mg/dl 12/15/23 05:38
VLDL Cholesterol, Calc 19 mg/dl (0-30) 12/15/23 05:38
HDL Cholesterol 67 mg/dl 12/15/23 05:38
12/14/23
18:02
Rdr-P-Hpmucqixhna Pept 5390
LAB Results
12/14/23 12/15/23 12/15/23
20:00 01:43 07:32
Troponin I < 0.012 0.014 0.013
Physical Exam
Constitutional: No acute distress
Cardiovascular: Rhythm & rate is regular, Pedal edema is absent and JVD pressure is normal
Respiratory: Respiratory effort normal, Lungs clear to auscul., Wheeze Absent, Crackles Absent and Rhonchi Absent
GI: Soft
Neuro/Psych: AO x 3
Data Reviewed
-
Date of Service: December 17, 2023
EKG: Other (tele , af rate controlled)
[2023-12-17] MEDS: LASIX 40 MG PO (08:11)
[2023-12-17] MEDS: CRESTOR 20 MG PO (08:12)
[2023-12-17] MEDS: THERAGRAN 1 TABLET PO (08:12)
[2023-12-17] MEDS: ELIQUIS 5 MG PO ×2 (08:12→20:09)
[2023-12-17] MEDS: VITAMIN B-12 1000 MCG PO (08:12)
[2023-12-17] MEDS: TEGRETOL 200 MG PO ×3 (08:12→22:25)
[2023-12-17] MEDS: VITAMIN C 500 MG PO (08:12)
[2023-12-17] MEDS: OSCAL CAL 500 500 MG PO (08:12)
[2023-12-17] MEDS: ZESTRIL 10 MG PO (08:12)
--- NOTE | 2023-12-17 08:32 | W.PN.HOSP.TC ---
Today's Communication/Plan
-
see bold
Assessment / Plan
Assessment / Plan
Gen: NAD, Awake and alert
Eyes: EOMI, PERRLA, no scleral icterus.
Neck: supple.
CV: irreg/irreg, +S1/S2, no m/r/g.
Resp: CTAB, no rales, wheezes, or rhonchi.
Abd: +BS, soft, NT, ND
Skin: No rashes. trace ankle edema
Neuro: CN 2-12 intact, non-focal.
Psych: Normal mood and affect.
CXR: Findings suggesting a new moderate left lower lobe pneumonia.
CXR (repeat 12/16/23): Improving left basilar pneumonia.
Acute hypoxemic respiratory insufficiency due to acute on Chronic HFpEF and possibly LLL PNA:
-4+ pitting edema with associated SOB/HE x months, worsening recently
-COVID/Flu NEG
-proBNP 5390
-recent TTE 09/2023: EF 45-50% improved to 50-55%, Mild-Mod AR/MR/TR, PASP increased 38->48mmHg; will defer repeat to cardio
-cont IV lasix
-daily wts, I/Os, FR 1200cc/day
-cont BB
-currently on 2L [place] O2, wean as tolerated
-Cardiology following
-Repeat echo
-s/p Azithro/Rocephin
-CXRs noted. With NEG procal PNA would more than likely be viral. Afebrile, no leukocytosis. Previous documentation noted. Will start Augmentin with plan for 5 days abx. Will repeat procal.
Other problems:
Mitral regurgitation
Hyponatremia, mild, likely from CHF
Permanent Atrial Fibrillation: BB/Eliquis
CAD s/p CABG: Cont BB/statin
Essential HTN: cont ACEi/BB
HLD: cont statin
Seizure Disorder: Cont carbamazepine
Chronic back pain and sciatica
DNR/Eliquis
Anticipated Discharge: Within 24 hours
Subjective/Interval History
-
Date of Service: December 17, 2023
Denies SOB. Reports no cough 'Since they took the oxygen off.'
Objective Data
-
Vital Signs:
Vital Signs
Temp Pulse Resp BP Pulse Ox
97.5 F 79 22 156/70 97
12/17/23 03:24 12/17/23 03:24 12/17/23 03:24 12/17/23 03:24 12/17/23 08:10
I&O
12/16/23 12/17/23 12/18/23
06:59 06:59 06:59
Intake Total 1260 / 1260 1200 / 1200
Output Total 3325 / 3325 1650 / 1650
Balance -2065 / -2065 -450 / -450
[2023-12-17 09:45] LABS: Procalcitonin < 0.05 ng/ml (0.0-0.25)
[2023-12-17] MEDS: AUGMENTIN 875 MG/125 MG 1 TABLET PO ×2 (10:22→20:09)
--- NOTE | 2023-12-17 15:11 | VNURNOTE ---
Home Health Liaison met with patient at 1230 to discuss [facility] nurse/therapy, visits, schedule and homebound status. Patient is agreeable and understands that visits at home will be 2-3 x per week to assess and teach medical management. Patient stated
that he has a scale and is able to log a daily weight. Patient is anxious for d/c as he is primary CG for his .
[facility] brochure provided with contact information. Patient is aware that [facility] will contact him for start of care in 1-2 days after discharge from .
[facility] referral completed in [facility].
--- NOTE | 2023-12-17 16:38 | CM ---
Spoke with pt and Sofie.
PT OT = [facility] .
Requested [facility] . Kamille [facility] notified via TT of [facility] referral.
Weaning off oxygen from 2 liters.
IMM reviewed copy signed on chart.
Pt said he has a friend that can drive him home.
PLAN Home with [facility] if accepted
[2023-12-17] MEDS: TYLENOL 1000 MG PO (22:25)
[2023-12-17] MEDS: TOPROL XL 50 MG PO (22:26)
[2023-12-18 03:20] VITALS: BP 140/68
[2023-12-18 06:00] VITALS: BMI 24.1
[2023-12-18 08:01] VITALS: BP 148/74
--- NOTE | 2023-12-18 08:20 | W.PN.CD ---
Today's Communication / Plan
-
home on lasix 40mg po daily with an as needed pm dose for weight gain of 3lbs or more.
f/u with pcp in office
Impression / Plan
-
Impression: 83M with HFmEF admitted with HF. As outpatient, he's not a fan of diuretic and I wondered if I had him euvolemic at goal weight - I did not.
Plan
Yalxx-ca-ujedcqx HFimpEF:
- continue diuresis to new goal weight
-for discharge 40mg po daily with a second dose in pm prn for wt gain of 3lbs or more.
- daily weights, I/o
- Per discussions with Dr Mijares, med compliance seems to be an issue.
HFmEF
- BB/JABARI
- we can consider SLGT2i and MRA as OP
CAD s/p CABG:
-stable without CP
-continue Eliquis, BB, statin
Permanent AFIB:
-rate-controlled
-continue metoprolol and Eliquis
Subjective: Dyspnea improved, has some tenderness on left side from laying
Data:
TTE: CONCLUSIONS
1. Normal LV function with EF 50-55%
2. Biatrial enlargement
3. Aortic sclerosis- inadequate doppler to evaluate for possible aortic valve
gradient
4. Mild to moderate AI
5. Dilated ascending aorta (4.5cm)
6. No significant change vs prior study of
Echo 09/20/23: EF 50-55%. Mild/moderate mitral regurgitation. Mild to moderate aortic regurgitation. Mild/moderate tricuspid regurgitation. PAP 48 mmHG, Dilated aortic root and ascending aorta (SOV 4.7 cm, ST junction 4.3 cm, Asc Ao 4.5 cm).
Laboratory Data
12/15/23 12/16/23
05:38 04:32
Hgb 13.5
Creatinine 0.7
Selected Entries
12/14/23
22:29 12/15/23
06:00 12/16/23
06:00
Actual Weight 178 lb 5 oz 178 lb 7 oz 174 lb
Generic Name Dose Route Start Last Admin
Trade Name Tariq PRN Reason Stop Dose Admin
Apixaban 5 mg 12/14/23 22:29 12/16/23 08:41
Apixaban (Eliquis) 5 Mg Tablet PO 01/11/24 22:28 5 mg
BID DEBORAH
Lisinopril 10 mg 12/15/23 08:00 12/16/23 08:38
Lisinopril 10 Mg Tablet PO 01/12/24 07:59 10 mg
DAILY DEBORAH
Metoprolol Succinate 50 mg 12/14/23 22:29 12/15/23 22:14
Metoprolol 50 Mg Extended Release Tablet PO 01/11/24 22:28 50 mg
HS DEBORAH
Rosuvastatin Calcium 20 mg 12/15/23 08:00 12/16/23 08:41
Rosuvastatin (Crestor) 20 Mg Tablet PO 01/12/24 07:59 20 mg
DAILY DEBORAH
Furosemide 40 mg 12/15/23 12:00 12/16/23 08:39
Furosemide 40 Mg (10 Mg/Ml) 4 Ml Vial IV 01/12/24 11:59 40 mg
BID AT 0800,1600 DEBORAH
Physical Exam
Vital Signs/Labs
Vital Signs
Temp Pulse Resp BP Pulse Ox
98.1 F 78 18 148/74 97
12/18/23 08:01 12/18/23 08:01 12/18/23 08:01 12/18/23 08:01 12/18/23 08:01
12/17/23 12/18/23 12/19/23
06:59 06:59 06:59
Actual Weight 78.046 kg 78.245 kg
12/15/23 05:38
12/16/23 04:32
Magnesium 2.0 mg/dl (1.6-2.3) 12/15/23 05:38
Triglycerides 99 mg/dl (10-149) 12/15/23 05:38
LDL Cholesterol, Calc 75 mg/dl 12/15/23 05:38
VLDL Cholesterol, Calc 19 mg/dl (0-30) 12/15/23 05:38
HDL Cholesterol 67 mg/dl 12/15/23 05:38
12/14/23
18:02
Ufy-D-Zokliucczfj Pept 5390
LAB Results
12/15/23
07:32
Troponin I 0.013
Physical Exam
Constitutional: No acute distress
Cardiovascular: Pedal edema is absent, JVD pressure is normal and Rhythm/rate is irregular
Respiratory: Respiratory effort normal, Lungs clear to auscul., Wheeze Absent, Crackles Absent and Rhonchi Absent
Neuro/Psych: AO x 3
Other: Other (tenderness at the left chest wall)
Data Reviewed
-
Date of Service: December 18, 2023
X-Ray/CT/US/MRI/NUC/PET: Discussed with Physician (ok to discharge home today ) and Discussed with Patient
[2023-12-18] MEDS: VITAMIN C 500 MG PO (09:07)
[2023-12-18] MEDS: ZESTRIL 10 MG PO (09:07)
[2023-12-18] MEDS: LASIX 40 MG PO (09:07)
[2023-12-18] MEDS: TEGRETOL 200 MG PO (09:07)
[2023-12-18] MEDS: AUGMENTIN 875 MG/125 MG 1 TABLET PO (09:07)
[2023-12-18] MEDS: VITAMIN B-12 1000 MCG PO (09:07)
[2023-12-18] MEDS: ELIQUIS 5 MG PO (09:07)
[2023-12-18] MEDS: OSCAL CAL 500 500 MG PO (09:07)
[2023-12-18] MEDS: CRESTOR 20 MG PO (09:07)
[2023-12-18] MEDS: THERAGRAN 1 TABLET PO (09:07)
[2023-12-18 12:05] VITALS: BP 160/81
--- NOTE | 2023-12-18 12:11 | W.PN.HOSP.TC ---
Today's Communication/Plan
-
d/c
Assessment / Plan
Assessment / Plan
Gen: NAD, Awake and alert
Eyes: EOMI, PERRLA, no scleral icterus.
Neck: supple.
CV: remains irreg/irreg, +S1/S2, no m/r/g.
Resp: CTAB, no rales, wheezes, or rhonchi.
Abd: +BS, soft, NT, ND
Skin: No rashes. trace L ankle edema
Neuro: remains CN 2-12 intact, non-focal.
Psych: Normal mood and affect.
CXR: Findings suggesting a new moderate left lower lobe pneumonia.
CXR (repeat 12/16/23): Improving left basilar pneumonia.
Echo:
1. Normal LV function with EF 50-55%
2. Biatrial enlargement
3. Aortic sclerosis- inadequate doppler to evaluate for possible aortic valve
gradient
4. Mild to moderate AI
5. Dilated ascending aorta (4.5cm)
6. No significant change vs prior study of 09/20/2023
Acute hypoxemic respiratory insufficiency due to acute on Chronic HFpEF and possibly LLL PNA:
-4+ pitting edema with associated SOB/HE x months, worsening recently
-COVID/Flu NEG
-proBNP 5390
-recent TTE 09/2023: EF 45-50% improved to 50-55%, Mild-Mod AR/MR/TR, PASP increased 38->48mmHg; will defer repeat to cardio
-was diuresed with IV lasix, now transitioned to PO Lasix
-daily wts, I/Os, FR 1200cc/day
-cont BB
-currently on 2L [place] O2, wean as tolerated
-Cardiology following and has cleared the pt for discharge
-Echo above
-s/p Azithro/Rocephin, then placed on Augmentin. Procal NEG x 2. Afebrile, no leukocytosis. Doubt bacterial PNA but to be safe will complete 5 days Augmentin.
Other problems:
Mitral regurgitation
Hyponatremia, mild, likely from CHF
Permanent Atrial Fibrillation: BB/Eliquis
CAD s/p CABG: Cont BB/statin
Essential HTN: cont ACEi/BB
HLD: cont statin
Seizure Disorder: Cont carbamazepine
Chronic back pain and sciatica
DNR/Eliquis
Total time spent on d/c = 31 min. This included today's physical exam, progress note, review of laboratory and diagnostic data, preparation of discharge documents and prescriptions, and discussions about the pt's hospital course and discharge plan
with the patient and other medical van driver involved in the patient's care.
Anticipated Discharge: Today
Subjective/Interval History
-
Date of Service: December 18, 2023
Denies CP/SOB.
Objective Data
-
Vital Signs:
Vital Signs
Temp Pulse Resp BP Pulse Ox
97.6 F 73 18 160/81 98
12/18/23 12:05 12/18/23 12:05 12/18/23 12:05 12/18/23 12:05 12/18/23 12:05
I&O
12/17/23 12/18/23 12/19/23
06:59 06:59 06:59
Intake Total 1200 / 1200 960 / 960
Output Total 1650 / 1650 1100 / 1100
Balance -450 / -450 -140 / -140
--- NOTE | 2023-12-18 13:34 | CM ---
MD entered order for discharge.
Kamille aware [facility] Kamille aware of dc.
Weaned off oxygen
Spoke with pt he said he had a friend to pick him up. ,
Offered van for approx $90.00 to drive him home.Pt said he will ask friend.
PLAN Home with [facility]
--- NOTE | 2023-12-18 14:55 | W.DCSUMMARY ---
Discharge Summary
Discharge Data
Date of Admission: 12/14/23
Date of Discharge: 12/18/23
-
Pending Results: No
Hospital Course
Primary diagnoses:
Acute hypoxemic respiratory insufficiency due to acute on chronic heart failure with preserved ejection fraction and possibly left lower lobe pneumonia
Secondary diagnoses:
Mitral regurgitation
Hyponatremia
Permanent Atrial Fibrillation
Coronary artery disease status post coronary artery bypass grafting
Essential hypertension
Hyperlipidemia
Seizure Disorder
Chronic back pain and sciatica
Consultants:
Cardiology
Imaging:
CXR: Findings suggesting a new moderate left lower lobe pneumonia.
CXR (repeat 12/16/23): Improving left basilar pneumonia.
Echo:
1. Normal LV function with EF 50-55%
2. Biatrial enlargement
3. Aortic sclerosis- inadequate doppler to evaluate for possible aortic valve
gradient
4. Mild to moderate AI
5. Dilated ascending aorta (4.5cm)
6. No significant change vs prior study of 09/20/2023
83-year-old male who initially presented with dyspnea on exertion as outlined in the H&P done on admission. Hospital course by problem list:
Acute hypoxemic respiratory insufficiency due to acute on chronic HFpEF and possibly LLL PNA: The patient had 4+ pitting edema with associated SOB/HE for a number of months which had worsened recently. COVID and flu testing were negative. proBNP
was 5390. Echocardiogram above. Patient was diuresed with IV Lasix and then transition to oral Lasix. His beta-gonzalo was continued. He was on 2L [place] O2 and was weaned to RA. Chest x-ray above. The patient received a dose of azithromycin and
Rocephin. He was then placed on Augmentin. His procalcitonin was negative x 2. Patient was afebrile and had no leukocytosis. Although bacterial pneumonia was unlikely he was given Augmentin to complete 5 days of antibiotic therapy to be safe.
Discharge Plan
-
Patient Disposition: Home with Home Care
Discharge Diagnosis/Procedures: Acute hypoxemic respiratory insufficiency due to acute on Chronic heart failure with preserved ejection fraction and possibly left lower lobe pneumonia
Condition: Good
Diet: Low Cholesterol and Other diet
Additional Diets: Fluid restrict to 1200 cc/day
Activity: As tolerated
Driving Restrictions: Not until seen by your Dr
Blood Work: BMP and CBC in 1 week, prescription PCP
Other Services: [facility]
Specialty Instructions: Weigh Daily- Call MD for wt gain/loss 3 lbs overnight/5 lbs in 1 week
Activity Restrictions/Additional Instructions:
If your weight increases by more than 3 pounds please take an additional dose of Lasix.
Instructions: *CBC Heart Failure Instructions
Referrals:
Wandy Gutierrez CRNP [Specified Professional Personl] - 12/27/23 9:20 am
Jamil Villagomez MD [Family Provider] - in less than 1 week
Prescriptions:
New
furosemide 40 mg Tablet
40 mg PO DAILY Qty: 30 0RF
amoxicillin-pot clavulanate 875-125 mg Tablet
1 tab PO Q12 Qty: 5 0RF
Continued
cyanocobalamin (vitamin B-12) 1,000 MCG tablet
1,000 mcg PO DAILY
ascorbic acid (vitamin C) [Vitamin C] 500 MG tablet
500 mg PO DAILY
Eliquis 5 MG tablet
5 mg PO BID
carbamazepine 200 MG tablet
200 mg PO TID
lisinopril 10 MG tablet
10 mg PO DAILY Qty: 30 0RF
Rx Instructions:
NEW MED
multivitamin Tablet
1 tab PO DAILY
metoprolol succinate 50 mg tablet extended release 24 hr
50 mg PO HS
acetaminophen 500 mg Tablet
1,000 mg PO HS
acetaminophen 500 mg Tablet
500 mg PO Q4H PRN (Reason: mild pain)
calcium carbonate 500 mg calcium (1,250 mg) Tablet
500 mg PO DAILY
nitroglycerin 0.4 mg tablet, sublingual
0.4 mg sublingual [id number] PRN (Reason: chest pain)
rosuvastatin 20 mg tablet
20 mg PO DAILY
Discontinued
furosemide 20 mg Tablet
20 mg PO DAILY PRN (Reason: swelling)
Discharge Orders:
Discharge Patient (As Directed); Ordered 12/18/23
Ordered By: Joselito Ojeda
Discharge Date and Time
Discharge Date/Time: 12/18/23 14:24
Print Language: UKRAINIAN
== END 2023-12-18 14:24 | disposition home health service (06) | DRG 291 ==
LOC: 4 EAST ACU 20:23
PROVIDERS: Emergency Medicine; Nurse Practitioner; Physician Assistant; ADMITTING PHYSICIAN Internal Medicine; ATTENDING PHYSICIAN Internal Medicine; CONSULT PHYSICIAN Internal Medicine Cardiovascular Disease; EMERGENCY PHYSICIAN Emergency Medicine; FAMILY PHYSICIAN Internal Medicine
DX: I11.0 Hypertensive heart disease with heart failure (principal); I50.33 Acute on chronic diastolic (congestive) heart failure; J18.9 Pneumonia, unspecified organism; I48.21 Permanent atrial fibrillation; E87.1 Hypo-osmolality and hyponatremia; R06.89 Other abnormalities of breathing; R09.02 Hypoxemia; G40.909 Epilepsy, unspecified, not intractable, without status epilepticus; I08.0 Rheumatic disorders of both mitral and aortic valves; I70.0 Atherosclerosis of aorta; M54.30 Sciatica, unspecified side; G89.29 Other chronic pain; E78.00 Pure hypercholesterolemia, unspecified; I25.10 Atherosclerotic heart disease of native coronary artery without angina pectoris; Z66 Do not resuscitate; Z79.01 Long term (current) use of anticoagulants; Z95.1 Presence of aortocoronary bypass graft; Z11.52 Encounter for screening for COVID-19; Z82.49 Family history of ischemic heart disease and other diseases of the circulatory system; Z79.82 Long term (current) use of aspirin
CPT/HCPCS: 71046; 80048; 80053; 80061; 81003; 81015; 83036; 83735; 83880; 84145; 84484; 85025; 87502; 87811; 92526; 92610; 93005; 93306; 96374; 96375; 97162; 97166; 99285

== ENCOUNTER → 2023-12-26 13:00 | Outpatient (REF) | payer MEDICARE, BC, SELFPAY ==
[2023-12-26 19:28] LABS: % Basophils 0.9 % (0-2); % Immature Granulocytes 0.9 % (0-0.5); % Lymphocytes 19.3 % (20.5-51.1); % Monocytes 7.7 % (1.7-9.3); % Neutrophils 70.2 % (42.2-75.2); Absolute Basophils 0.1 10^3/uL (0-0.2); Absolute Eosinophils 0.1 10^3/uL (0-0.7); Absolute Immature Granulocytes 0.1 10^3/uL (0-0.05); Absolute Lymphocytes 1.3 10^3/uL (1.2-3.4); Absolute Monocytes 0.5 10^3/uL (0.1-0.6); Absolute Neutrophils 4.8 10^3/uL (1.4-6.5); Hematocrit 43.7 % (39.0-52.0); Hemoglobin 14.3 g/dL (13.0-18.0); Mean Corp Hgb Conc. 32.7 g/dL (33.0-37.0); Mean Corpuscular Volume 97.8 fL (80.0-94.0); Mean Platelet Volume 10.8 fL (7.4-10.4); Nucleated Red Blood Cells % 0 % (-); Platelet Count 272 10^3/uL (130-400); Red Blood Cell Count 4.47 10^6/uL (4.70-6.10); Red Cell Dist. Width 13.5 % (11.5-14.5); White Blood Cell Count 6.8 10^3/uL (4.8-10.8)
[2023-12-26 19:48] LABS: Blood Urea Nitrogen 33 mg/dl (9-20); Calcium 8.7 mg/dl (8.4-10.2); Carbon Dioxide 32 mmol/L (22-30); Chloride 95 mmol/L (98-107); Glucose 114 mg/dl (70-99); Potassium 4.3 mmol/L (3.5-5.1); Sodium 134 mmol/L (135-145); eGFR > 60.00
== END ==
LOC: CLAB 13:00
PROVIDERS: ATTENDING PHYSICIAN Internal Medicine
DX: I11.0 Hypertensive heart disease with heart failure (principal); I50.22 Chronic systolic (congestive) heart failure; J18.9 Pneumonia, unspecified organism
CPT/HCPCS: 80048; 85025

== ENCOUNTER → 2024-01-21 14:13 | Outpatient (REF) | payer MEDICARE, BC, SELFPAY ==
[2024-01-21 18:06] LABS: Albumin 3.4 g/dl (3.5-5.0); Blood Urea Nitrogen 35 mg/dl (9-20); Calcium 8.9 mg/dl (8.4-10.2); Carbon Dioxide 32 mmol/L (22-30); Chloride 99 mmol/L (98-107); Glucose 83 mg/dl (70-99); Phosphorus 4.1 mg/dl (2.5-4.5); Potassium 4.7 mmol/L (3.5-5.1); Sodium 136 mmol/L (135-145); eGFR > 60.00
[2024-01-21 18:24] LABS: NT-proBNP 2840 pg/ml
== END ==
LOC: CLAB 14:13
PROVIDERS: ATTENDING PHYSICIAN Internal Medicine
DX: I50.33 Acute on chronic diastolic (congestive) heart failure (principal); I48.21 Permanent atrial fibrillation; E87.1 Hypo-osmolality and hyponatremia
CPT/HCPCS: 80069; 83880

== ENCOUNTER → 2024-02-12 16:31 | Outpatient (REF) | payer MEDICARE, BC, SELFPAY ==
[2024-02-12 16:54] LABS: Blood Urea Nitrogen 41 mg/dl (9-20); Carbon Dioxide 33 mmol/L (22-30); Chloride 97 mmol/L (98-107); Glucose 123 mg/dl (70-99); Magnesium 2.4 mg/dl (1.6-2.3); Potassium 4.7 mmol/L (3.5-5.1); Sodium 136 mmol/L (135-145); eGFR > 60.00
== END ==
LOC: CLAB 16:31
PROVIDERS: ATTENDING PHYSICIAN Internal Medicine
DX: I50.33 Acute on chronic diastolic (congestive) heart failure (principal); I11.0 Hypertensive heart disease with heart failure; E87.1 Hypo-osmolality and hyponatremia
CPT/HCPCS: 36415; 80048; 83735

== ENCOUNTER → 2024-02-20 14:32 | Outpatient (REF) | payer MEDICARE, BC, SELFPAY ==
[2024-02-20 17:29] LABS: Blood Urea Nitrogen 38 mg/dl (9-20); Calcium 8.9 mg/dl (8.4-10.2); Carbon Dioxide 32 mmol/L (22-30); Chloride 98 mmol/L (98-107); Glucose 131 mg/dl (70-99); Potassium 3.8 mmol/L (3.5-5.1); Sodium 138 mmol/L (135-145); eGFR > 60.00
== END ==
LOC: OLAB 14:32
PROVIDERS: ATTENDING PHYSICIAN Internal Medicine; REFERRING PHYSICIAN Internal Medicine Cardiovascular Disease
DX: I50.20 Unspecified systolic (congestive) heart failure (principal)
CPT/HCPCS: 80048

== ENCOUNTER → 2024-03-04 11:08 | Outpatient (REF) | payer MEDICARE, BC, SELFPAY ==
[2024-03-04 12:14] LABS: Blood Urea Nitrogen 37 mg/dl (9-20); Calcium 9.6 mg/dl (8.4-10.2); Carbon Dioxide 30 mmol/L (22-30); Chloride 99 mmol/L (98-107); Glucose 90 mg/dl (70-99); Magnesium 2.4 mg/dl (1.6-2.3); Potassium 4.7 mmol/L (3.5-5.1); Sodium 138 mmol/L (135-145); eGFR > 60.00
== END ==
LOC: REG 11:08
PROVIDERS: ATTENDING PHYSICIAN Internal Medicine Cardiovascular Disease; FAMILY PHYSICIAN Internal Medicine
DX: I50.20 Unspecified systolic (congestive) heart failure (principal); I10 Essential (primary) hypertension
CPT/HCPCS: 36415; 80048; 83735

== ENCOUNTER → 2024-06-23 16:32 | Outpatient (REF) | payer MEDICARE, BC, SELFPAY ==
[2024-06-23 18:44] LABS: NT-proBNP 1480 pg/ml
[2024-06-23 18:46] LABS: Blood Urea Nitrogen 44 mg/dl (9-20); Calcium 9.1 mg/dl (8.4-10.2); Carbon Dioxide 31 mmol/L (22-30); Chloride 94 mmol/L (98-107); Glucose 88 mg/dl (70-99); Potassium 4.4 mmol/L (3.5-5.1); Sodium 138 mmol/L (135-145); eGFR > 60.00
== END ==
LOC: RAD 16:32
PROVIDERS: ATTENDING PHYSICIAN Internal Medicine Rheumatology; FAMILY PHYSICIAN Internal Medicine; OTHER PHYSICIAN Student in an Organized Health Care Education/Training Program
DX: I50.30 Unspecified diastolic (congestive) heart failure (principal); M19.019 Primary osteoarthritis, unspecified shoulder
CPT/HCPCS: 36415; 73030; 80048; 83880

== ENCOUNTER 2024-08-01 10:45 | Inpatient (IN) | payer MEDICARE, BC, SELFPAY ==
[2024-07-29 16:20] VITALS: BP 162/69
[2024-07-29 16:51] LABS: % Basophils 0.9 % (0-2); % Eosinophils 1.4 % (0-6); % Immature Granulocytes 0.6 % (0-0.5); % Lymphocytes 16.7 % (20.5-51.1); % Monocytes 16.5 % (1.7-9.3); % Neutrophils 63.9 % (42.2-75.2); Absolute Basophils 0.1 10^3/uL (0-0.2); Absolute Eosinophils 0.1 10^3/uL (0-0.7); Absolute Immature Granulocytes 0.1 10^3/uL (0-0.05); Absolute Lymphocytes 1.6 10^3/uL (1.2-3.4); Absolute Monocytes 1.5 10^3/uL (0.1-0.6); Hematocrit 40.9 % (39.0-52.0); Hemoglobin 13.3 g/dL (13.0-18.0); Mean Corp Hgb Conc. 32.5 g/dL (33.0-37.0); Mean Corpuscular Hgb 30.6 pg (27.0-31.0); Mean Corpuscular Volume 94.2 fL (80.0-94.0); Nucleated Red Blood Cells % 0 % (-); Platelet Count 228 10^3/uL (130-400); Red Blood Cell Count 4.34 10^6/uL (4.70-6.10); Red Cell Dist. Width 14.1 % (11.5-14.5); White Blood Cell Count 9.3 10^3/uL (4.8-10.8)
[2024-07-29 17:00] VITALS: BP 142/64
[2024-07-29 17:01] LABS: ALT (SGPT) 23 U/L (0-50); AST (SGOT) 24 U/L (17-59); Albumin 3.6 g/dl (3.5-5.0); Alkaline Phosphatase 103 U/L (38-126); Blood Urea Nitrogen 26 mg/dl (9-20); Calcium 8.9 mg/dl (8.4-10.2); Carbon Dioxide 34 mmol/L (22-30); Chloride 97 mmol/L (98-107); Estimated Creatinine Clearance 98 ml/min; Glucose 116 mg/dl (70-99); Potassium 4.2 mmol/L (3.5-5.1); Sodium 139 mmol/L (135-145); Total Bilirubin 0.4 mg/dl (0.2-1.3); Total Protein 6.2 g/dl (6.3-8.2); eGFR > 60.00
[2024-07-29 17:11] LABS: NT-proBNP 3300 pg/ml; Troponin I < 0.012 ng/ml
--- NOTE | 2024-07-29 18:11 | ED.GENMED ---
History of Present Illness
General
Chief Complaint: Fainting Sensation
Source: patient
Exam Limitations: none
Time Seen by Provider: 07/29/24 16:25
Nursing documentation reviewed up to this point in time: agreed with
History of Present Illness
History of Present Illness:
Patient to ED for eval of syncopal episodes, weakness. States his spouse in may. Family friend has been staying with him and has witnessed multiple syncopal episodes. He reports he can feel episodes coming on. History of seizures but he
does not feel that these episodes are related to seizures. Denies any post-ictal pahse. He did hit his head last week but did not have med. eval after. Brought to ED by EMS after syncopal episode.
Past History
Past History
ED Past Medical History: CAD, HTN, Hypercholesterolemia and Seizures
Social History
Tobacco: Non-smoker
Personal:
Living: with family
Employment: Retired
Review of Systems
Review of Systems
Allergies reviewed?: Yes
All Other Systems: ROS reviewed and negative except as documented in HPI and ROS
Constitutional: Reports fatigue
EENT: Reports no symptoms
Respiratory: Reports trouble breathing (HE)
Cardiac: Reports syncope
ABD/GI: Reports no symptoms
: Reports no symptoms
Musculoskeletal: Reports edema (+3 edema BLE)
Skin: Reports no symptoms
Neurological: Reports weakness
Psychiatric: Reports no symptoms
Phy Exam
General Physical Exam
General Presentation: mild distress
General age: appears stated age
General Skin: warm and dry
General Habitus: normal
General Mental: alert
Cardiovascular Exam
Cardiovascular Exam: irregularly irregular and other (Episodes of sinus bradycardia, followed by short pause, to afib noted on monitor)
Pulmonary Exam
Pulmonary Exam: no respiratory distress and chest non tender
Breath Sounds: Crackles: left lower and right lower
Gastrointestinal Exam
Gastrointestinal Exam: normal bowel sounds, non tender and soft
Neurological Exam
Neurological Exam: alert, oriented x3, CN II-XII intact, no motor deficits, no sensory deficits and speech normal
Musculoskeletal Exam
Musculoskeletal Exam: full ROM and neuro vasc intact
Skin Exam
Skin Exam: normal color, warm/dry and no rash
Psychiatric Exam
Psychiatric Exam: normal mood/affect
Course
Orders/Labs/Results
Orders:
Orders
07/29/24 Dinner
Cholesterol Lowering
At Your Request: Limited Participation
Does patient need a safe tray?: No
Cholesterol Lowering: Sodium, 2 Gram
07/29/24 16:24
Electrocardiogram (*1) Urgent
Reason for Study: Fatigue / Weakness
EKG- Treatment ONCE
07/29/24 16:31
Complete Blood Count/With Diff Urgent
Comprehensive Metabolic Panel Urgent
NT-proBNP Urgent
Troponin I Urgent
07/29/24 16:34
CT Head W/o Iv Contrast Urgent
Comment:
Reason For Exam: syncope, head injury
CR Chest - 2 Views Urgent
Comment:
Reason For Exam: SOB, cough
07/29/24 18:19
Furosemide [Lasix] 40 mg IV NOW STA
07/29/24 18:39
Admit/Transfer Patient As Directed
Co-Sign Provider:
Level of Care: Observation services
Assign to:: Telemetry
Physician / Group: hospitalist
Diagnosis: pre-syncope
Reason for Telemetry: Syncope
Date to Stop Telemetry: 07/31/24
Time to Stop Telemetry: 11:00
PRN Pain Medication Management As Directed
May give lesser potent ordered pain med per pt: Yes
preference::
Protocol:: Medication orders for pain may be administered in a
manner that supports deferring to patient preference
when the pt is:
- Requesting an ordered lesser potent pain medication.
Least to most potent pain medications are defined
as: acetaminophen < NSAID < tramadol < opioids
(morphine, oxycodone, hydromorphone).
- Requesting a lesser dose of the same medication IF
ORDERED.
- Requesting a less intrusive route of administration
if both routes are prescribed by the provider (PO <
IV).
07/29/24 18:41
Code Status As Directed
Resuscitation Status: Do not resuscitate
Reached after discussion with pt or family/Healthcare POA: Yes
07/29/24 18:42
DNR Bracelet Application ONCE
07/29/24 20:06
Urinalysis Reflex To Culture Urgent
Date Specimen was Collected: 07/29/24
Time Specimen was Collected: 20:05
07/29/24 20:15
Acetaminophen [Tylenol] 650 mg PO Q4HPRN PRN
Apixaban [Eliquis] 5 mg PO BID
Bisacodyl [Dulcolax] 10 mg RECTAL [id number] PRN
Docusate W/Senna [Senokot-S] 1 tablet PO BIDPRN PRN
Ondansetron Injectable [Zofran] 4 mg IV Q6HPRN PRN
Polyethylene Glycol Powder [Miralax] 17 grams PO DAILYPRN PRN
07/29/24 20:15
Echo 2D MMode Color/Doppler Routine
Reason for Study: syncope
VTE Contraindication Routine
VTE Mechanical Device Contraindication: Medical Contraindication
Pharmocologic Contraindication: Medical Contraindication
Activity As Directed
Activity Level: With Assistance
Orthostatic Vital Signs As Directed
Orthostatic VS Frequency: Now
Vital Signs As Directed
Frequency: Per unit guidelines
Weight As Directed
Frequency: Daily
Oxygen Therapy [O2 Therapy] [RESP] Routine
Nasal Cannula Liter Flow: 2 LPM
Titrate/Wean O2 to maintain O2 sat greater than (%): 93
Pulse Ox/spot Check [RESP] Routine
Quantity: 1
Pt Eval And Treat Routine
Activity Level: With Assistance
07/29/24 22:00
Carbamazepine [Tegretol] 200 mg PO TID
Metoprolol Xl [Toprol Xl] 50 mg PO HS
07/30/24 06:00
Basic Metabolic Panel IN AM
Complete Blood Count/No Diff IN AM
TSH IN AM
TSH Reflex To Free T4 IN AM
Tegretol (Carbamazepine) IN AM
Vitamin B12 IN AM
07/30/24 08:00
Furosemide [Lasix] 40 mg PO DAILY
Lisinopril [Zestril] 20 mg PO DAILY
Rosuvastatin Calcium [Crestor] 20 mg PO DAILY
07/31/24 11:00
DC Protocol for Telemetry ONCE
Abnormal Lab Results
07/29/24
16:31
RBC 4.34 L 10^6/uL
(4.70-6.10)
MCV 94.2 H fL
(80.0-94.0)
MCHC 32.5 L g/dL
(33.0-37.0)
Abs Immat Gran (auto) 0.1 H 10^3/uL
(0-0.05)
Absolute Monos (auto) 1.5 H 10^3/uL
(0.1-0.6)
Immature Gran % 0.6 H %
(0-0.5)
Lymphocytes % 16.7 L %
(20.5-51.1)
Monocytes % 16.5 H %
(1.7-9.3)
Chloride 97 L mmol/L
(98-107)
Carbon Dioxide 34 H mmol/L
(22-30)
BUN 26 H mg/dl
(9-20)
Creatinine 0.5 L mg/dL
(0.7-1.3)
Glucose 116 H mg/dl
(70-99)
Total Protein 6.2 L g/dl
(6.3-8.2)
07/29/24 16:31
07/29/24 16:31
Vital Signs
Initial and Last Documented VS:
Initial Vital Signs
Temp Pulse Resp BP Pulse Ox
97.9 F 79 22 162/69 89
07/29/24 16:20 07/29/24 16:20 07/29/24 16:20 07/29/24 16:20 07/29/24 16:20
Last Documented Vital Signs
Temp Pulse Resp BP Pulse Ox
97.7 F 58 21 158/75 95
07/29/24 20:28 07/29/24 21:13 07/29/24 20:28 07/29/24 21:13 07/29/24 20:28
MDM/Problems Addressed
Differential Diagnosis Includes:
Patient to ED with complaint of freqent syncopal events over the past few weeks. HIt head last week. He has a history of seizures but does not feel that he is having seizures. Reports compliance with medication. Chronic afib, on eliquis.
hospital monitor showing periods of bradycardia, as low as 38, followed by short pause and then return to afib. Also with +3 edema BLE. BNP 3300, crackles bilateral bases. Given 40mg Lasix IV. Will admit to hospitalis for syncope (likley -
related to bradycardia) vs seizure, bradycardia, CHF.
*Critical Care Note
Total Time (30-74mins, 75-104mins- exclusive of procedures): Not Applicable
ED Attending Note
-
Portions of this chart may have been created with voice recognition software.� Occasional wrong word or��sound alike� substitutions may have occurred due to the inherent limitations of voice recognition software.
Discharge Plan
Departure
Patient Disposition: Admit
Date of Disposition: 07/29/24
Time of Disposition: 18:30
Presentation/result/management discussed w/ accepting MD/DO: Hospitalist
Condition: Fair
Covid-19: Not Applicable
Discharge Problem:
CHF (congestive heart failure), Syncope, Symptomatic bradycardia
Interventions
Interventions:
*Risk Screen - Suicide Last Done: 07/29/24 16:25
*General Assessment Last Done: 07/29/24 16:25
*Neglect/Abuse Screening Last Done: 07/29/24 16:25
ED- Fall Risk Assessment Last Done: 07/29/24 20:11
*ED COVID-19 Vaccine History Last Done: 07/29/24 16:25
*Nursing Disposition Last Done: 07/29/24 20:11
ED- Cardiac Assessment Last Done: 07/29/24 16:29
ED- Neurological Assessment Last Done: 07/29/24 16:29
Discharge Date and Time
Discharge Date/Time: 07/29/24 20:15
[2024-07-29 18:22] VITALS: BP 162/69
--- NOTE | 2024-07-29 18:58 | HPS.HSE ---
Family Physician
-
Family Physician: NOT KNOW UNKNOWN - PT DOES
Chief Complaint
-
Fainting spells
History of Present Illness
There is an 84-year-old male with past medical history of permanent atrial fibrillation on anticoagulation, CAD status post CABG several years ago, CHF, hypertension, seizure disorder who presents to the emergency department from home with concern
for fainting episodes.
Patient was actually brought to the emergency department by a friend who lives with him since his spouse about 3 months ago. She reported that he had fainting like episodes twice last week and once again today. It was reported that as he was
getting up from bed it appears his eyes rolled into the back of his head and appeared as he was going to fall. There was no loss of consciousness. Patient reports weakness and occasional lightheadedness. He denies palpitions. Denies orthostatic
sensation in am or generally. Denies seizure-like episodes. There has been no weight gain or weight loss. Reports LE edema is unchanged. Reported that he had low O2 in the 80s this am but improved to 92 by afternoon. He reports sinus congestion
but denies any fevers chills or cough. Reports no recent changes in medications and generally compliant with his meds.
In ED patient was afebrile, blood pressure was 160/69 with a pulse of 60 satting at 98% on 2 L. ECG shows atrial fibrillation at 63, troponin 0.012, BNP 3000. CBC was unremarkable. Chemistries were also within normal limits. CT of the head shows
no acute abnormalities. Chest x-ray shows mild vascular prominence but otherwise no acute infiltrates edema, pleural effusion or pneumothorax.
Medical History
Past Medical History
Past Medical History: Reports Other
Additional Past Medical History:
CAD status post CABG
Hypertension
Pulmonary atrial fibrillation on anticoagulation
Seizure disorder on Tegretol
CHF
Past Surgical History: Reports Other
Social History
Tobacco: Non-smoker
Alcohol: None
Drug: None
Personal:
Living: Alone
Employment: Retired
Family History
Family History: Not pertinent
Allergies / Home Medications
Allergies reflects when Allergies were last updated in [facility].
Home Medications with original date entered in [facility]
Allergy/Medication List:
Allergies
Allergy/AdvReac Type Severity Reaction Status Date / Time
No Known Allergies Allergy Verified 10/01/21 18:15
Home Medications
ascorbic acid (vitamin C) 500 mg tablet (Vitamin C) 500 mg PO DAILY Supplement 07/19/16
cyanocobalamin (vitamin B-12) 1,000 mcg tablet 1,000 mcg PO DAILY Supplement 07/19/16
apixaban 5 mg tablet (Eliquis) 5 mg PO BID Blood clot prevention/tx 10/02/21
carbamazepine 200 mg tablet 200 mg PO TID Seizures 10/02/21
acetaminophen 500 mg tablet 500 mg PO Q4HPRN PRN mild pain 12/14/23
calcium carbonate 500 mg PO DAILY Supplement 12/14/23
metoprolol succinate 50 mg tablet,extended release 24 hr 50 mg PO DAILY Blood Pressure 12/14/23
multivitamin 1 tab PO DAILY Supplement 12/14/23
nitroglycerin 0.4 mg sublingual tablet 0.4 mg sublingual [id number] PRN chest pain 12/14/23
rosuvastatin 20 mg tablet 20 mg PO DAILY High Cholesterol 12/14/23
furosemide 40 mg tablet 40 mg PO DAILY #30 tabs 12/18/23
lisinopril 20 mg tablet 20 mg PO DAILY 07/29/24
Review of Systems
-
History Source: Patient
Constitutional: Reports No Symptoms
EENT: Reports No Symptoms
Respiratory: Reports No Symptoms
Cardiac: Reports No Symptoms
Abdomen/GI: Reports No Symptoms
Musculoskeletal: Reports No Symptoms
Skin: Reports No Symptoms
Neurological: Reports Weakness
Endocrine: Reports No Symptoms
Hematologic/Lymphatic: Reports No Symptoms
Psych: Reports No Symptoms
Physical Exam
Vital Signs
Vital Signs
Temp Pulse Resp BP Pulse Ox
97.9 F 60 15 162/69 98
07/29/24 16:20 07/29/24 16:30 07/29/24 16:30 07/29/24 16:20 07/29/24 16:30
Physical Exam
General: Well Developed, No Apparent Distress and Conversant
HEENT: NormoCephalic, Anicteric, Moist mucous membranes, Atraumatic and PERRLA
Respiratory: Clear (anteriorly), Non Labored Respirations and Other (paradoxical abdominal movement with breathing)
Cardiac: S1/S2 and Irregular Rhythm
Breast: Deferred by me
GI: Soft, Non Tender and Normal Bowel Sounds
Rectal: Deferred by Provider
Genito-urinary: Deferred by me
Musculoskeletal: No Clubbing, No Cyanosis, Edema, Left Lower Extremity and Edema, Right Lower Extremity
Skin: Warm
Neuro: AO x 3
Hematologic/Lymphatic: No Lymphadenopathy
Psych: Calm
Laboratory Results
-
07/29/24 16:31
07/29/24 16:31
Laboratory Results
Total Bilirubin 0.4 mg/dl (0.2-1.3) 07/29/24 16:31
AST 24 U/L (17-59) 07/29/24 16:31
ALT 23 U/L (0-50) 07/29/24 16:31
Alkaline Phosphatase 103 U/L (38-126) 07/29/24 16:31
Troponin I < 0.012 ng/ml 07/29/24 16:31
Data Reviewed
-
Diagnostic Radiology: Image Personally Visualized and interpreted
CT Scan: Report Reviewed by me
Medical Tests (Nuc Med, Echo, EKG etc): Image Personally Visualized and interpreted
Lab Data: Labs Reviewed by me
Old Records: Reviewed
Impression/Plan
-
IMPRESSION:
84-year-old male who spouse is recently presents to the emergency department with complaints of 3 pre-syncopal episodes in the last 2 weeks. No particular narrowing symptoms. Physical exam shows mild hypervolemia with leg swelling. Mild
pulmonary vascular cngestion and BNP within prior ranges. Troponin normal. ECG with permanent afib rate 63, rate on telemetry 50s - 60s on metoprolol succinate. Hgb, BUN/Cr and electrolytes all within normal limits.
PLAN:
1. Pre-syncope
- admit to telemetry
- orthostatic vital signs
- echo in am
- u/a
- check tegretol level
- check tsh, b12
- PT eval
2. CHF - Possibly mild exacerbation
- s/p lasix 40mg iv in ED
- will continue 40mg po daily for now and monitor weights and orthostatics
- continue metoprolol 50 for now monitoring telemetry
- hypertensive at rest, continue lisinopril unless orthostatic
3. Bradycardia - AFIB on rate control
- continue metoprolol and check orthostatics
4. AFIB
- continue apixaban, dose appropriate
Code Status - DNR
[2024-07-29] MEDS: LASIX 40 MG IV (18:59)
[2024-07-29 19:00] VITALS: BP 165/67
[2024-07-29 20:14] LABS: Urine Albumin Negative (Neg - Trace); Urine Bilirubin Negative (Negative); Urine Character Clear (Clear); Urine Color Straw; Urine Glucose Negative (Negative); Urine Ketone Negative (Negative); Urine Leukocyte Negative (Negative); Urine Nitrite Negative (Negative); Urine Occult Blood Negative (Negative); Urine Specific Gravity 1.005 (<1.030); Urine Urobilinogen Negative (Neg - 1+)
[2024-07-29 20:28] VITALS: BP 158/75; BMI 26.0
--- NOTE | 2024-07-29 20:28 | PTCARENOTE ---
Pt arrived onto floor @2027. Pt AAOx3 and a casing puller to the bed. Pt with no complaints of SOB at this time. Pt oriented to room and call sykes; will continue to monitor.
[2024-07-29 20:46] VITALS: BMI 26.0
[2024-07-29] MEDS: ELIQUIS 5 MG PO (21:13)
[2024-07-29] MEDS: TEGRETOL 200 MG PO (21:13)
[2024-07-29] MEDS: TOPROL XL 50 MG PO (21:13)
[2024-07-29 23:20] VITALS: BP 159/102; BP 159/74; PULSE 63; PULSE 67
[2024-07-30] VITALS (7 sets, daily range): BP systolic 111–159; BP diastolic 71–85; PULSE 66–78; O2SAT 98; BMI 25.8
--- NOTE | 2024-07-30 04:02 | DOWNTIME ---
There was a [facility] Client Care Transport Nurse Downtime on 07/30/2024 from 0100 to 07/30/2024 at 0350. Downtime documentation of patient's care, including medication administrations, has been reconciled in the electronic record per guidelines. Refer to the
patient's paper chart under the miscellaneous tab to see printed paper medication records and downtime forms.
[2024-07-30 07:35] LABS: Hematocrit 43.1 % (39.0-52.0); Hemoglobin 14.4 g/dL (13.0-18.0); Mean Corp Hgb Conc. 33.4 g/dL (33.0-37.0); Mean Corpuscular Hgb 31.8 pg (27.0-31.0); Mean Corpuscular Volume 95.1 fL (80.0-94.0); Mean Platelet Volume 10.3 fL (7.4-10.4); Platelet Count 218 10^3/uL (130-400); Red Blood Cell Count 4.53 10^6/uL (4.70-6.10); Red Cell Dist. Width 14.1 % (11.5-14.5); White Blood Cell Count 10.4 10^3/uL (4.8-10.8)
[2024-07-30 08:33] LABS: Blood Urea Nitrogen 24 mg/dl (9-20); Calcium 8.7 mg/dl (8.4-10.2); Carbon Dioxide 34 mmol/L (22-30); Chloride 97 mmol/L (98-107); Estimated Creatinine Clearance 98 ml/min; Glucose 87 mg/dl (70-99); Potassium 4.4 mmol/L (3.5-5.1); Sodium 140 mmol/L (135-145); eGFR > 60.00
--- NOTE | 2024-07-30 08:50 | CON.CAR ---
Addendum entered and electronically signed by Cash Moreno MD 07/30/24 11:10:
Orthostatic vital signs negative. Start 40 mg IV Lasix twice daily.
Original Note:
Consultation
Consultation Request
Date/Time Consultation Requested: 07/30/2024 00:12
Date/Time Consultation Performed: 07/30/2024 8:50 AM
Requesting Provider: MD Kaylee
Performing Provider: Cash Moreno MD
Reason for Consultation: syncope
Medical History
-
Chief Complaint: Shortness of breath, syncope
History of Present Illness:
Javi Sage is an 84-year-old man with HFpEF, CAD status post CABG, and permanent atrial fibrillation on Eliquis. He presented to the ER for syncopal episodes over the past couple of weeks and on interview notes worsening shortness of breath.
Patient is a fairly poor historian but he reports that he has been more short of breath when he gets up to go to the bathroom overnight. Yesterday he noted that his pulse ox was reading in the low 80s, so he called his primary care doctor.
Simultaneously, he has had an issue with possible syncope over the past couple of weeks. He reports 1 episode last week where he fell and hit his head. He had no prodrome and no seizure activity. This was witnessed by his housemate. He says that
he got up from this event with no confusion and went back to breakfast. He has had 2 similar episodes since then. He denies orthostatic symptoms, but notes that it takes him a while to get up due to physical immobility. His main complaint is his
worsening shortness of breath. He has a chronic productive cough but it has not changed in character and he denies recent fevers. He has chronic stable bilateral lower extremity edema. He denies chest pressure and palpitations.
Telemetry reveals permanent atrial fibrillation with no ventricular arrhythmias.
Past Medical History
Past Medical History: Arrhythmias, CAD, CHF, HTN, Hypercholesterolemia and Valvular Disease
Social History
Tobacco: Non-Smoker
Family History
Family History: Reviewed & Not Pertinent
Allergies / Home Medications
Allergy/AdvReac Type Severity Reaction Status Date / Time
No Known Allergies Allergy Verified 10/01/21 18:15
�Medication �Instructions �Recorded �Confirmed �Type
ascorbic acid (vitamin C) 500 mg 500 mg PO DAILY Supplement 07/19/16 07/29/24 History
tablet (Vitamin C)
cyanocobalamin (vitamin B-12) 1,000 mcg PO DAILY Supplement 07/19/16 07/29/24 History
1,000 mcg tablet
apixaban 5 mg tablet (Eliquis) 5 mg PO BID Blood clot 10/02/21 07/29/24 History
prevention/tx
carbamazepine 200 mg tablet 200 mg PO TID Seizures 10/02/21 07/29/24 History
acetaminophen 500 mg tablet 500 mg PO Q4HPRN PRN mild pain 12/14/23 07/29/24 History
calcium carbonate 500 mg PO DAILY Supplement 12/14/23 07/29/24 History
metoprolol succinate 50 mg 50 mg PO DAILY Blood Pressure 12/14/23 07/29/24 History
tablet,extended release 24 hr
multivitamin 1 tab PO DAILY Supplement 12/14/23 07/29/24 History
nitroglycerin 0.4 mg sublingual 0.4 mg sublingual [id number] PRN 12/14/23 07/29/24 History
tablet chest pain
rosuvastatin 20 mg tablet 20 mg PO DAILY High Cholesterol 12/14/23 07/29/24 History
furosemide 40 mg tablet 40 mg PO DAILY #30 tabs 12/18/23 07/29/24 Rx
lisinopril 20 mg tablet 20 mg PO DAILY Blood Pressure 07/29/24 07/29/24 History
Review of Systems
-
All other systems: Negative unless noted
Physical Exam
Vital Signs
Temp Pulse Resp BP Pulse Ox
98.1 F 63 18 138/85 98
07/30/24 08:20 07/30/24 08:20 07/30/24 08:20 07/30/24 08:20 07/30/24 08:20
Lab Results
07/30/24 07:09
07/30/24 07:09
Troponin I < 0.012 ng/ml 07/29/24 16:31
Hfv-I-Niitggoffzd Pept 3300 pg/ml 07/29/24 16:31
Physical Exam
General: Well Developed, Well Nourished and No Apparent Distress
HEENT: Normocephalic
Respiratory: Wheezes, Crackles and Non Labored Respirations
Cardiac: S1/S2, Irregular Rhythm, Peripheral Edema and JVD; Negative Murmur or Rub
GI: Soft and Non Tender
Impression / Plan
-
Javi Sage is an 84-year-old man with HFpEF, CAD status post CABG, and permanent atrial fibrillation on Eliquis who presents with syncope and dyspnea on exertion.
Syncope
-Unclear if this was a true syncopal episode as patient is a poor historian. Differential includes vasovagal syncope, cardiac syncope, and seizure
-Please check orthostatic vital signs
-Decrease metoprolol to 25 mg daily given bradycardia may have been a cause of 'syncope'
-Follow-up echocardiogram
-Continue to monitor on telemetry. No ventricular arrhythmias thus far. Permanent atrial fibrillation.
Dyspnea on exertion
-Worsening dyspnea at home with hypoxia on home pulse ox
-Suspect he has a mild HF exacerbation with elevated NT proBNP, weight significantly up from last admission (previously 78 kg), and small pleural effusions on CXR
-Start Lasix 40 mg IV twice daily depending on orthostatic vital signs
-Daily standing weights. Monitor I's/O's
Permanent atrial fibrillation
-Decrease metoprolol as above
-Continue Eliquis for anticoagulation. I did discuss with him that this may not be therapeutic given his carbamazepine. Recommend switching to warfarin but he is undecided, we will continue to discuss.
Hypertension
-Check orthostatic vitals
-Continue lisinopril 20 mg daily for now
CAD status post CABG
-Continue rosuvastatin
-No aspirin due to systemic anticoagulation
Data Reviewed
-
EKG: Tracing Personally Visualized and interpreted
Radiology: Image Personally Visualized and interpreted
CT Scan: Report Reviewed by me
Medical Tests (Nuc Med, Echo etc): Report Reviewed by me
Labs: Labs Reviewed by me, Discussed with Physician and Discussed with Patient
Old Records: Reviewed
[2024-07-30] MEDS: ELIQUIS 5 MG PO ×2 (08:57→20:02)
[2024-07-30] MEDS: CRESTOR 20 MG PO (08:57)
[2024-07-30] MEDS: LASIX 40 MG PO (08:57)
[2024-07-30] MEDS: ZESTRIL 20 MG PO (08:57)
[2024-07-30] MEDS: TEGRETOL 200 MG PO ×3 (08:58→22:38)
[2024-07-30 09:30] LABS: Glycohemoglobin (HgbA1c) 5.8 % (4.0-5.6)
[2024-07-30 09:41] LABS: Cortisol, Random 8.4 ug/dl
[2024-07-30 10:09] LABS: Vitamin B12 765 pg/ml (239-931)
[2024-07-30 10:23] LABS: TSH Reflex To Free T4 1.71 uIU/ml (0.47-4.68)
--- NOTE | 2024-07-30 10:25 | W.PN.HOSP.TC ---
Today's Communication/Plan
-
see PN
Assessment / Plan
Assessment / Plan
84yo M with PMHX of HFpEF, CAD s/p CABG, Afib, HTN, HLD, seizure d/o came with recurrent syncope. Started appr 2 weeks ago, happening upon breakfast, when patient changing position to standing, without any post-syncopal confusion.
A/P:
#Syncope
#A.fib, permanent
No orthostatic hypotension
Episodes of bradycardia - decrease BB
Echo
Telemetry
#Acute on chronic HFpEF
Echo, follow electrolytes, lasix as per cardiology
Daily weight
#Acute hypoxic respiratory insufficency
mosly on exertion
did not improve much upon diuresis
XR without overt signs of pulmonary edema
Check CTA chest with possibility of subtherapeutic anticoagulation due to interraction with Tegretol
Cardio for further AC plans - patient declined switch to Warfarin initially
#Pituitary mass
MRI brain since patient with syncopies
TSH WNL
HGbA1c 5.8%
NeuroSx consult
#Seizure d/o
no signs of breakthrough seizures at this time
Tegretol level WNL
seizure precautions
#CAD s/p CABG
#Essential HTN
cont home meds with aforementioned adjustments
DVT ppx ELiquis
DNR/DNI
I have spent at least 59min reviewing chart, test results, communication with consultants and direct patient care
Anticipated Discharge: 24 - 48 hours
Subjective/Interval History
-
Date of Service: July 30, 2024
Objective Data
-
Labs:
Laboratory Results
07/30/24
07:09
WBC 10.4
Hgb 14.4
Hct 43.1
Plt Count 218
Sodium 140
Potassium 4.4
Chloride 97 L
Carbon Dioxide 34 H
BUN 24 H
Creatinine 0.6 L
Glucose 87
Calcium 8.7
Vital Signs:
Vital Signs
Temp Pulse Resp BP Pulse Ox
98.1 F 63 18 138/85 97
07/30/24 08:20 07/30/24 08:57 07/30/24 08:20 07/30/24 08:57 07/30/24 09:39
I&O
07/29/24 07/30/24 07/31/24
06:59 06:59 06:59
Intake Total 240 / 240
Balance 240 / 240
Review of Systems
-
History Source: Patient
All other systems: Reviewed and negative
Physical Exam
-
General: No Apparent Distress
HEENT: Normocephalic
Respiratory: Clear to Auscultation
Cardiac: Irregular Rhythm and Murmur
GI: Soft, Nontender and Nondistended
Musculoskeletal: No Clubbing, No Cyanosis, Edema, Right Lower Extrem and Edema, Left Lower Extrem
Neuro: Awake, Alert, Oriented and AO x 3
Psych: Calm
[2024-07-30] MEDS: LASIX 20 MG IV (11:57)
--- NOTE | 2024-07-30 12:56 | CON.NS ---
Chief Complaint
-
syncope
History of Present Illness
84 year old male with PMH CHF, CAD s/p CABG, Afib, HTN, HLD and seizure disorder, presented to with recurrent syncopal episodes. he states he has had multiple syncopal episodes when his oxygen level drops to 80-85%. he states he passes out for a
period of time. He had been using a cane and he lost his about 2 months ago and started to use her walker after she to ensure he was safe ambulating. He has macular degeneration and gets chemo every 10 weeks. He has a chronic
floater in the right eye since cataract surgery. Otherwise he denies any visual changes, no field cuts, no change in balance or gait. His head CT revealed a pituitary mass and we have been consulted.
Review of Systems
-
12 point review of systems negative unless otherwise noted in HPI
Medication and Allergies
Home Medications
Home Medications
�Medication �Instructions �Recorded
ascorbic acid (vitamin C) 500 mg 500 mg PO DAILY Supplement 07/19/16
tablet (Vitamin C)
cyanocobalamin (vitamin B-12) 1,000 mcg PO DAILY Supplement 07/19/16
1,000 mcg tablet
apixaban 5 mg tablet (Eliquis) 5 mg PO BID Blood clot 10/02/21
prevention/tx
carbamazepine 200 mg tablet 200 mg PO TID Seizures 10/02/21
acetaminophen 500 mg tablet 500 mg PO Q4HPRN PRN mild pain 12/14/23
calcium carbonate 500 mg PO DAILY Supplement 12/14/23
metoprolol succinate 50 mg 50 mg PO DAILY Blood Pressure 12/14/23
tablet,extended release 24 hr
multivitamin 1 tab PO DAILY Supplement 12/14/23
nitroglycerin 0.4 mg sublingual 0.4 mg sublingual [id number] PRN 12/14/23
tablet chest pain
rosuvastatin 20 mg tablet 20 mg PO DAILY High Cholesterol 12/14/23
furosemide 40 mg tablet 40 mg PO DAILY #30 tabs 12/18/23
lisinopril 20 mg tablet 20 mg PO DAILY Blood Pressure 07/29/24
Allergies
Allergies
Allergy/AdvReac Type Severity Reaction Status Date / Time
No Known Allergies Allergy Verified 10/01/21 18:15
Physical Exam
-
Exam:
AAOx3
mood and demeanor appropriate
speech clear and conversant
EOMI
Cn 2-12 GI, gross visual potter intact
motor 5/5 throughout, generalized deconditioning
sensation intact to LT
skin warm and dry
breathing non labored on nasal cannula
Head CT:
IMPRESSION:
No acute intracranial abnormality noted. Specifically, no acute intracranial hemorrhage or extra-axial collection. No skull fracture.
Incidental Pituitary/parasellar mass, as described. 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 Less likely thrombosed aneurysm. Further evaluation/characterization
recommended with nonemergent follow-up MRI.
Problems
-
Problem Status Onset Code
Symptomatic bradycardia R00.1
Syncope R55
CHF (congestive heart failure) I50.9
Assessment / Plan
-
84 year old male with syncopal episodes with head CT revealing pituitary/parasellar mass
--MRI brain wwo contrast --reviewed with Dr. Cazares
--no acute neurosurgical intervention indicated
--follow up outpatient with Dr. Redd [phone]
--Follow up with endocrine and ophthalmology outpatient
--ok for anticoagulation
--will sign off
--discussed with Dr. Cazares
[2024-07-30] MEDS: LASIX 40 MG IV (16:25)
--- NOTE | 2024-07-30 17:35 | CM ---
Alert awake oriented patient who lives with his friend Pinky May. His recently.They lives in a 2 story home with 2 step to enter and 7 steps to bed and bathroom.He is on new Oxygen. He is assisted in all activities of daily
living.Will need PT OT for dc planning.
No VN hx / [facility] history
Pharmacy [facility] [address]
PCP DR Villagomez
PLAN Will need PT OT for dec plan
Watch for new oxygen
[2024-07-30] MEDS: TOPROL XL 25 MG PO (22:37)
[2024-07-31 03:15] VITALS: BP 161/77
[2024-07-31 06:00] VITALS: BMI 25.7
[2024-07-31 06:09] LABS: % Basophils 0.6 % (0-2); % Monocytes 17.4 % (1.7-9.3); Absolute Basophils 0.1 10^3/uL (0-0.2); Absolute Eosinophils 0.3 10^3/uL (0-0.7); Absolute Immature Granulocytes 0.1 10^3/uL (0-0.05); Absolute Lymphocytes 1.9 10^3/uL (1.2-3.4); Absolute Monocytes 2.2 10^3/uL (0.1-0.6); Hematocrit 39.9 % (39.0-52.0); Hemoglobin 13.6 g/dL (13.0-18.0); Mean Corp Hgb Conc. 34.1 g/dL (33.0-37.0); Mean Corpuscular Hgb 31.2 pg (27.0-31.0); Mean Corpuscular Volume 91.5 fL (80.0-94.0); Mean Platelet Volume 10.5 fL (7.4-10.4); Nucleated Red Blood Cells % 0 % (-); Platelet Count 210 10^3/uL (130-400); Red Blood Cell Count 4.36 10^6/uL (4.70-6.10); Red Cell Dist. Width 13.7 % (11.5-14.5); White Blood Cell Count 12.4 10^3/uL (4.8-10.8)
[2024-07-31 06:44] LABS: ALT (SGPT) 22 U/L (0-50); AST (SGOT) 23 U/L (17-59); Albumin 3.4 g/dl (3.5-5.0); Alkaline Phosphatase 130 U/L (38-126); Blood Urea Nitrogen 31 mg/dl (9-20); Calcium 8.5 mg/dl (8.4-10.2); Carbon Dioxide 34 mmol/L (22-30); Chloride 93 mmol/L (98-107); Estimated Creatinine Clearance 84 ml/min; Glucose 91 mg/dl (70-99); Magnesium 2.1 mg/dl (1.6-2.3); Potassium 4.4 mmol/L (3.5-5.1); Sodium 136 mmol/L (135-145); Total Bilirubin 0.5 mg/dl (0.2-1.3); eGFR > 60.00
[2024-07-31 07:14] VITALS: BP 174/82
[2024-07-31] MEDS: ELIQUIS 5 MG PO ×2 (07:55→20:19)
[2024-07-31] MEDS: ZESTRIL 20 MG PO (07:55)
[2024-07-31] MEDS: TEGRETOL 200 MG PO ×3 (07:58→21:54)
[2024-07-31] MEDS: CRESTOR 20 MG PO (07:58)
[2024-07-31] MEDS: LASIX 40 MG IV ×2 (07:58→16:56)
--- NOTE | 2024-07-31 10:47 | W.PN.HOSP.TC ---
Today's Communication/Plan
-
wean off O2
cont diuresis
start Abx
Assessment / Plan
Assessment / Plan
84yo M with PMHX of HFpEF, CAD s/p CABG, Afib, HTN, HLD, seizure d/o came with recurrent syncope. Started appr 2 weeks ago, happening upon breakfast, when patient changing position to standing, without any post-syncopal confusion. Managed for CHF
exacerbation. Questionable RLL pneumonia
A/P:
#Syncope
#A.fib, permanent
No orthostatic hypotension
Episodes of bradycardia - decrease BB
Echo: dilatd aortic root 4.5cm, slightly worse TR and pulmonary HTN
Telemetry
#Acute hypoxic respiratory insufficiency 2/2 Acute on chronic HFpEF
Echo, follow electrolytes, lasix as per cardiology
Daily weight
Cardio for further AC plans - patient declined switch to Warfarin initially
#RLL atelectasis vs pneumonia
with mild leukocytosis reasonable to treat with Rocephin/Doxy
check COVID-19 and influenza
#Pituitary mass
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
TSH WNL
HGbA1c 5.8%
NeuroSx consult: outpatient f/u with endo and neuroSx
#Seizure d/o
no signs of breakthrough seizures at this time
Tegretol level WNL
seizure precautions
#CAD s/p CABG
#Essential HTN
cont home meds with aforementioned adjustments
DVT ppx ELiquis
DNR/DNI
I have spent at least 56min reviewing chart, test results, communication with consultants and direct patient care
Anticipated Discharge: > 48 hours
Subjective/Interval History
-
Date of Service: July 31, 2024
Objective Data
-
Labs:
Laboratory Results
07/31/24
05:15
WBC 12.4 H
Hgb 13.6
Hct 39.9
Plt Count 210
Sodium 136
Potassium 4.4
Chloride 93 L
Carbon Dioxide 34 H
BUN 31 H
Creatinine 0.7
Glucose 91
Calcium 8.5
Total Bilirubin 0.5
AST 23
ALT 22
Alkaline Phosphatase 130 H
Vital Signs:
Vital Signs
Temp Pulse Resp BP Pulse Ox
97.4 F 77 18 174/82 95
07/31/24 07:14 07/31/24 07:55 07/31/24 07:14 07/31/24 07:55 07/31/24 08:10
I&O
07/30/24 07/31/24 08/01/24
06:59 06:59 06:59
Intake Total 240 / 240 720 / 720
Output Total 2325 / 2325
Balance 240 / 240 -1605 / -1605
Review of Systems
-
History Source: Patient
All other systems: Reviewed and negative
Physical Exam
-
General: No Apparent Distress
HEENT: Normocephalic
Respiratory: Clear to Auscultation
GI: Soft, Nontender and Nondistended
Musculoskeletal: Edema, Right Lower Extrem and Edema, Left Lower Extrem
Neuro: Awake, Alert, Oriented and AO x 3
Psych: Calm
[2024-07-31] MEDS: STERILE WATER FOR INJECTION 10 ML IV (11:30)
[2024-07-31] MEDS: VIBRAMYCIN 100 MG PO ×2 (11:30→20:19)
[2024-07-31] MEDS: ROCEPHIN 1000 MG IV (11:30)
[2024-07-31 11:44] VITALS: BP 140/82
[2024-07-31 12:14] LABS: COVID-19 Antigen Negative (Negative)
[2024-07-31 15:02] VITALS: BP 154/89
[2024-07-31 19:48] VITALS: BP 107/59
[2024-07-31] MEDS: TOPROL XL 25 MG PO (21:58)
[2024-07-31 23:45] VITALS: BP 116/55
[2024-08-01 03:28] VITALS: BP 125/65
[2024-08-01 05:18] VITALS: BMI 25.9
[2024-08-01 07:17] VITALS: BP 105/55
[2024-08-01 09:00] LABS: % Basophils 0.8 % (0-2); % Eosinophils 2.3 % (0-6); % Lymphocytes 17.8 % (20.5-51.1); % Neutrophils 65.1 % (42.2-75.2); Absolute Basophils 0.1 10^3/uL (0-0.2); Absolute Eosinophils 0.2 10^3/uL (0-0.7); Absolute Immature Granulocytes 0.1 10^3/uL (0-0.05); Absolute Lymphocytes 1.7 10^3/uL (1.2-3.4); Absolute Monocytes 1.3 10^3/uL (0.1-0.6); Absolute Neutrophils 6.4 10^3/uL (1.4-6.5); Hemoglobin 13.3 g/dL (13.0-18.0); Mean Corp Hgb Conc. 33.3 g/dL (33.0-37.0); Mean Corpuscular Volume 93.2 fL (80.0-94.0); Mean Platelet Volume 10.8 fL (7.4-10.4); Nucleated Red Blood Cells % 0 % (-); Platelet Count 224 10^3/uL (130-400); Red Blood Cell Count 4.29 10^6/uL (4.70-6.10); White Blood Cell Count 9.8 10^3/uL (4.8-10.8)
[2024-08-01 09:23] LABS: ALT (SGPT) 21 U/L (0-50); AST (SGOT) 21 U/L (17-59); Albumin 3.5 g/dl (3.5-5.0); Alkaline Phosphatase 133 U/L (38-126); Blood Urea Nitrogen 35 mg/dl (9-20); Calcium 8.5 mg/dl (8.4-10.2); Carbon Dioxide 36 mmol/L (22-30); Chloride 90 mmol/L (98-107); Estimated Creatinine Clearance 84 ml/min; Glucose 145 mg/dl (70-99); Potassium 4.2 mmol/L (3.5-5.1); Sodium 136 mmol/L (135-145); Total Bilirubin 0.3 mg/dl (0.2-1.3); Total Protein 6.2 g/dl (6.3-8.2); eGFR > 60.00
[2024-08-01] MEDS: TEGRETOL 200 MG PO ×3 (09:33→23:22)
[2024-08-01] MEDS: CRESTOR 20 MG PO (09:34)
[2024-08-01] MEDS: VIBRAMYCIN 100 MG PO ×2 (09:34→20:31)
[2024-08-01] MEDS: ZESTRIL 20 MG PO (09:38)
[2024-08-01] MEDS: LASIX 40 MG IV (09:39)
[2024-08-01] MEDS: ELIQUIS 5 MG PO ×2 (09:40→20:31)
--- NOTE | 2024-08-01 10:29 | W.PN.HOSP.TC ---
Today's Communication/Plan
-
Weight gain noted -Lasix increased
Assessment / Plan
Assessment / Plan
84yo M with PMHX of HFpEF, CAD s/p CABG, Afib, HTN, HLD, seizure d/o came with recurrent syncope. Started appr 2 weeks ago, happening upon breakfast, when patient changing position to standing, without any post-syncopal confusion. Managed for CHF
exacerbation. Questionable RLL pneumonia
A/P:
#Syncope
#A.fib, permanent
No orthostatic hypotension
Episodes of bradycardia - decrease BB
Echo: dilatd aortic root 4.5cm, slightly worse TR and pulmonary HTN
Telemetry
#Acute hypoxic respiratory insufficiency 2/2 Acute on chronic HFpEF
Echo, follow electrolytes, lasix as per cardiology
Daily weight
Cardio for further AC plans - patient declined switch to Warfarin initially
#RLL atelectasis vs pneumonia
with mild leukocytosis reasonable to treat with Rocephin/Doxy
check COVID-19 and influenza
#Pituitary mass
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
TSH WNL
HGbA1c 5.8%
NeuroSx consult: outpatient f/u with endo and neuroSx
#Seizure d/o
no signs of breakthrough seizures at this time
Tegretol level WNL
seizure precautions
#CAD s/p CABG
#Essential HTN
cont home meds with aforementioned adjustments
DVT ppx ELiquis
DNR/DNI
I have spent at least 56min reviewing chart, test results, communication with consultants and direct patient care
Anticipated Discharge: > 48 hours
Subjective/Interval History
-
Date of Service: August 01, 2024
Objective Data
-
Labs:
Laboratory Results
08/01/24
07:28
WBC 9.8
Hgb 13.3
Hct 40.0
Plt Count 224
Sodium 136
Potassium 4.2
Chloride 90 L
Carbon Dioxide 36 H
BUN 35 H
Creatinine 0.7
Glucose 145 H
Calcium 8.5
Total Bilirubin 0.3
AST 21
ALT 21
Alkaline Phosphatase 133 H
Vital Signs:
Vital Signs
Temp Pulse Resp BP Pulse Ox
97.3 F 73 18 122/58 96
08/01/24 07:17 08/01/24 09:39 08/01/24 07:17 08/01/24 09:39 08/01/24 07:17
I&O
07/31/24 08/01/24 08/02/24
06:59 06:59 06:59
Intake Total 720 / 720 1280 / 1280
Output Total 2325 / 2325 1950 / 1950
Balance -1605 / -1605 -670 / -670
Review of Systems
-
History Source: Patient
All other systems: Reviewed and negative
Musculoskeletal: Reports Other (b/l finger swelling)
Physical Exam
-
General: No Apparent Distress
HEENT: Moist Mucous Membranes
Respiratory: Clear to Auscultation
Cardiac: Irregular Rhythm
GI: Soft, Nontender and Nondistended
Musculoskeletal: No Clubbing, No Cyanosis, Edema, Right Upper Extrem, Edema, Left Upper Extrem, Edema, Right Lower Extrem and Edema, Left Lower Extrem
Neuro: Awake, Alert, Oriented and AO x 3
Psych: Calm
--- NOTE | 2024-08-01 10:32 | W.PN.CD ---
Today's Communication / Plan
-
Continue with attempts at diuresis. Approaching euvolemia.
Continue to monitoring his telemetry.
Discharge planning.
Impression / Plan
-
Javi Sage is an 84-year-old man with HFpEF, CAD status post CABG, and permanent atrial fibrillation on Eliquis who presents with syncope and dyspnea on exertion.
Syncope
-Unclear if this was a true syncopal episode as patient is a poor historian. Differential includes vasovagal syncope, cardiac syncope, and seizure
-orthostatics ok
-Decrease metoprolol to 25 mg daily given bradycardia may have been a cause of 'syncope'
-Continue to monitor on telemetry. No ventricular arrhythmias thus far. Permanent atrial fibrillation.
Dyspnea on exertion
-Worsening dyspnea at home with hypoxia on home pulse ox
-negative 2200 cc since admission
-Suspect he has a mild HF exacerbation with elevated NT proBNP, weight significantly up from last admission (previously 78 kg), increase in PASP, and small pleural effusions on CXR
-agree with increase of Lasix to 60 mg IV twice daily.
-Daily standing weights. Monitor I's/O's
Permanent atrial fibrillation
-Decrease metoprolol as above, rate remains adequately controlled.
-Continue Eliquis for anticoagulation. I did discuss with him that this may not be therapeutic given his carbamazepine. Recommend switching to warfarin but he is undecided, we will continue to discuss.
Hypertension
-Check orthostatic vitals
-Continue lisinopril 20 mg daily for now
CAD status post CABG
-Continue rosuvastatin
-No aspirin due to systemic anticoagulation
Ascending aortic aneurysm: 4.[address] of chest this admission. This is stable.
TTE 07/30/24: Normal left ventricular size and systolic function. LVEF 55%.
Moderate concentric LV hypertrophy. Cannot rule out wall motion abnormalities.
Normal RV size and function.
Mild aortic stenosis.
Moderate aortic regurgitation.
Mild to moderate tricuspid regurgitation. PASP 40-45 mmHg.
Dilated aortic root (4.5 cm) and ascending aorta (4.2 cm).
Compared to prior echocardiogram on 12/17/2023, tricuspid regurgitation has
increased slightly and PASP has increased from 20-25 mmHg to 40-45 mmHg.
Aortic regurgitation is similar on direct comparison. Aortic root and
ascending aorta measurements are slightly different. Given poor visualization
on this study, recommend cross-sectional imaging for more accurate assessment.
Physical Exam
Vital Signs/Labs
Vital Signs
Temp Pulse Resp BP Pulse Ox
97.3 F 73 18 122/58 96
08/01/24 07:17 08/01/24 09:39 08/01/24 07:17 08/01/24 09:39 08/01/24 07:17
07/31/24 08/01/24 08/02/24
06:59 06:59 06:59
Actual Weight 83.546 kg 84.232 kg
08/01/24 07:28
08/01/24 07:28
Magnesium 2.1 mg/dl (1.6-2.3) 07/31/24 05:15
TSH Cancelled 07/30/24 06:00
07/29/24
16:31
Rno-O-Gcwqfennmgd Pept 3300
LAB Results
07/29/24
16:31
Troponin I < 0.012
Physical Exam
Constitutional: No acute distress and Comfortable
Cardiovascular: Rhythm & rate is regular, JVD pressure is normal, Systolic murmur absent, Diastolic murmur absent and Pedal edema present (Mild bilaterally.)
Respiratory: Respiratory effort normal, Lungs clear to auscul., Wheeze Absent, Crackles Absent and Rhonchi Absent
Neuro/Psych: AO x 3
Data Reviewed
-
Date of Service: August 01, 2024
Medical Decision Making: Review of Case with other Provider (Dr. Benson agree with increased diuresis.)
EKG: Other (Telemetry, rate controlled A-fib with mild burden of PVCs.)
[2024-08-01] MEDS: ROCEPHIN 1000 MG IV (12:43)
[2024-08-01] MEDS: STERILE WATER FOR INJECTION 10 ML IV (12:46)
[2024-08-01 13:30] VITALS: O2SAT 98
--- NOTE | 2024-08-01 13:38 | VNURNOTE ---
Home Health Liaison met with patient to discuss [facility] nurse/therapy, visits, schedule and homebound status. Patient is agreeable and understands that visits at home will be 2-3 x per week to assess and teach medical management.
[facility] brochure provided with contact information. Patient is aware that [facility] will contact them for start of care in 1-2 days after discharge from .
[facility] referral completed in [facility].
[2024-08-01 15:38] VITALS: BP 130/70
[2024-08-01] MEDS: LASIX 60 MG IV (16:49)
--- NOTE | 2024-08-01 17:09 | CM ---
Weaned off oxygen .
Pt changed to Inpatient IMM given explained signed on chart.
PT indicated SNF.
Requested OT order form MD.
Spoke with pt in nroom . He declined SNF.
[facility] TT request.
PLAN Home with VN
[2024-08-01 19:30] VITALS: BP 119/61
[2024-08-01 23:00] VITALS: BP 127/73
[2024-08-01] MEDS: TOPROL XL 25 MG PO (23:22)
[2024-08-02] VITALS (7 sets, daily range): BP systolic 106–149; BP diastolic 58–71; PULSE 58; O2SAT 93; BMI 25.9
[2024-08-02 07:03] LABS: Blood Urea Nitrogen 38 mg/dl (9-20); Calcium 8.6 mg/dl (8.4-10.2); Carbon Dioxide 36 mmol/L (22-30); Chloride 90 mmol/L (98-107); Estimated Creatinine Clearance 84 ml/min; Glucose 89 mg/dl (70-99); Potassium 4.3 mmol/L (3.5-5.1); Sodium 134 mmol/L (135-145); eGFR > 60.00
[2024-08-02] MEDS: VIBRAMYCIN 100 MG PO ×2 (09:16→20:29)
[2024-08-02] MEDS: ZESTRIL 20 MG PO (09:16)
[2024-08-02] MEDS: CRESTOR 20 MG PO (09:17)
[2024-08-02] MEDS: ELIQUIS 5 MG PO ×2 (09:17→20:29)
[2024-08-02] MEDS: TEGRETOL 200 MG PO ×3 (09:17→20:29)
[2024-08-02] MEDS: LASIX 60 MG IV ×2 (09:18→15:54)
[2024-08-02] MEDS: TYLENOL 650 MG PO (09:27)
[2024-08-02] MEDS: COLACE 200 MG PO (11:12)
[2024-08-02] MEDS: OSCAL CAL 500 500 MG PO (11:12)
[2024-08-02] MEDS: STERILE WATER FOR INJECTION 10 ML IV (11:13)
[2024-08-02] MEDS: VITAMIN C 500 MG PO (11:13)
[2024-08-02] MEDS: VITAMIN B-12 1000 MCG PO (11:13)
[2024-08-02] MEDS: ROCEPHIN 1000 MG IV (11:13)
[2024-08-02] MEDS: THERAGRAN 1 TABLET PO (11:13)
--- NOTE | 2024-08-02 12:06 | W.PN.HOSP.TC ---
Today's Communication/Plan
-
cont IV lasix, might be able to switch to oral in AM
cont Abx for total of 5 days
Assessment / Plan
Assessment / Plan
84yo M with PMHX of HFpEF, CAD s/p CABG, Afib, HTN, HLD, seizure d/o came with recurrent syncope. Started appr 2 weeks ago, happening upon breakfast, when patient changing position to standing, without any post-syncopal confusion. Managed for CHF
exacerbation. Questionable RLL pneumonia - empiric Abx for 5 days. Patient was recommended rehab, but declined
A/P:
#Syncope
#A.fib, permanent
No orthostatic hypotension
Episodes of bradycardia - decrease BB
Echo: dilatd aortic root 4.5cm, slightly worse TR and pulmonary HTN
Telemetry
#Acute hypoxic respiratory insufficiency 2/2 Acute on chronic HFpEF
Echo, follow electrolytes, lasix as per cardiology
Daily weight
Cardio for further AC plans - patient declined switch to Warfarin initially
#RLL atelectasis vs pneumonia with unspecified organism
with mild leukocytosis reasonable to treat with Rocephin/Doxy x5 days
check COVID-19 and influenza
#Pituitary mass
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
TSH WNL
HGbA1c 5.8%
NeuroSx consult: outpatient f/u with endo and neuroSx
#Seizure d/o
no signs of breakthrough seizures at this time
Tegretol level WNL
seizure precautions
#CAD s/p CABG
#Essential HTN
cont home meds with aforementioned adjustments
DVT ppx ELiquis
DNR/DNI
I have spent at least 56min reviewing chart, test results, communication with consultants and direct patient care
Anticipated Discharge: Within 24 hours
Subjective/Interval History
-
Date of Service: August 02, 2024
Objective Data
-
Labs:
Laboratory Results
08/02/24
05:51
Sodium 134 L
Potassium 4.3
Chloride 90 L
Carbon Dioxide 36 H
BUN 38 H
Creatinine 0.7
Glucose 89
Calcium 8.6
Vital Signs:
Vital Signs
Temp Pulse Resp BP Pulse Ox
97.4 F 69 18 132/63 94
08/02/24 11:10 08/02/24 11:10 08/02/24 11:10 08/02/24 11:10 08/02/24 11:10
I&O
08/01/24 08/02/24 08/03/24
06:59 06:59 06:59
Intake Total 1280 / 1280 660 / 660
Output Total 1950 / 1949 1860 / 1860
Balance -670 / -670 -1200 / -1200
Review of Systems
-
History Source: Patient
All other systems: Reviewed and negative
Physical Exam
-
General: No Apparent Distress
HEENT: Normocephalic
Respiratory: Clear to Auscultation
Cardiac: Regular Rhythm
GI: Soft, Nontender and Nondistended
Genito-urinary: No Costovertebral Tender
Musculoskeletal: No Clubbing, No Cyanosis, Edema, Right Lower Extrem and Edema, Left Lower Extrem
--- NOTE | 2024-08-02 16:27 | W.PN.CD ---
Today's Communication / Plan
-
Respiratory status appears stable. Near baseline.
Transition to oral diuretic tomorrow.
Impression / Plan
-
Javi Sage is an 84-year-old man with HFpEF, CAD status post CABG, and permanent atrial fibrillation on Eliquis who presents with syncope and dyspnea on exertion.
Syncope
-Unclear if this was a true syncopal episode as patient is a poor historian. Differential includes vasovagal syncope, cardiac syncope, and seizure
-orthostatics ok
-Decrease metoprolol to 25 mg daily given bradycardia may have been a cause of 'syncope'
-Continue to monitor on telemetry. No ventricular arrhythmias thus far. Permanent atrial fibrillation.
Dyspnea on exertion
-Worsening dyspnea at home with hypoxia on home pulse ox
-negative 2200 cc since admission
-Suspected mild HF exacerbation with elevated NT proBNP, weight significantly up from last admission (previously 78 kg), increase in PASP, and small pleural effusions on CXR
-Weight trending down and respiratory status appears stable. Consider transition to oral diuretic tomorrow.Patient previously on Lasix 40 mg daily with transition of 40 mg twice daily
Permanent atrial fibrillation
-Decrease metoprolol as above, rate remains adequately controlled.
-Continue Eliquis for anticoagulation. I did discuss with him that this may not be therapeutic given his carbamazepine. A transition to Coumadin had previously been discussed but patient had not wanted to make the change.
Hypertension
-Check orthostatic vitals
-Continue lisinopril 20 mg daily for now
CAD status post CABG
-Continue rosuvastatin
-No aspirin due to systemic anticoagulation
Ascending aortic aneurysm: 4.[address] of chest this admission. This is stable.
TTE 07/30/24: Normal left ventricular size and systolic function. LVEF 55%.
Moderate concentric LV hypertrophy. Cannot rule out wall motion abnormalities.
Normal RV size and function.
Mild aortic stenosis.
Moderate aortic regurgitation.
Mild to moderate tricuspid regurgitation. PASP 40-45 mmHg.
Dilated aortic root (4.5 cm) and ascending aorta (4.2 cm).
Compared to prior echocardiogram on 12/17/2023, tricuspid regurgitation has
increased slightly and PASP has increased from 20-25 mmHg to 40-45 mmHg.
Aortic regurgitation is similar on direct comparison. Aortic root and
ascending aorta measurements are slightly different. Given poor visualization
on this study, recommend cross-sectional imaging for more accurate assessment.
Physical Exam
Vital Signs/Labs
Vital Signs
Temp Pulse Resp BP Pulse Ox
98.2 F 69 18 121/58 92
08/02/24 15:30 08/02/24 15:54 08/02/24 15:30 08/02/24 15:54 08/02/24 15:30
08/01/24 08/02/24 08/03/24
06:59 06:59 06:59
Actual Weight 84.232 kg 84.056 kg
08/01/24 07:28
08/02/24 05:51
Magnesium 2.0 mg/dl (1.6-2.3) 08/02/24 05:51
TSH Cancelled 07/30/24 06:00
07/29/24
16:31
Snc-S-Egsaamzyqne Pept 3300
Physical Exam
Constitutional: No acute distress
Cardiovascular: Rhythm & rate is regular
Respiratory: Respiratory effort normal
GI: Soft
Neuro/Psych: Alert
Data Reviewed
-
Date of Service: August 02, 2024
Medical Decision Making: Reviewed Test Results
Medical Tests (PFT, Pathology etc): Report Reviewed by me
Labs: Labs Reviewed by me
[2024-08-02] MEDS: TOPROL XL 25 MG PO (20:29)
[2024-08-03 03:25] VITALS: BP 144/67
[2024-08-03 06:00] VITALS: BMI 25.7
[2024-08-03 07:30] VITALS: BP 155/55
[2024-08-03] MEDS: OSCAL CAL 500 500 MG PO (08:32)
[2024-08-03] MEDS: TEGRETOL 200 MG PO ×2 (08:32→15:06)
[2024-08-03] MEDS: VITAMIN B-12 1000 MCG PO (08:32)
[2024-08-03] MEDS: CRESTOR 20 MG PO (08:32)
[2024-08-03] MEDS: THERAGRAN 1 TABLET PO (08:32)
[2024-08-03] MEDS: ZESTRIL 20 MG PO (08:32)
[2024-08-03] MEDS: VITAMIN C 500 MG PO (08:32)
[2024-08-03] MEDS: ELIQUIS 5 MG PO (08:32)
[2024-08-03] MEDS: VIBRAMYCIN 100 MG PO (08:32)
--- NOTE | 2024-08-03 08:32 | W.PN.HOSP.TC ---
Today's Communication/Plan
-
pending final cardiology reccs and d/c
Assessment / Plan
Assessment / Plan
84yo M with PMHX of HFpEF, CAD s/p CABG, Afib, HTN, HLD, seizure d/o came with recurrent syncope. Started appr 2 weeks ago, happening upon breakfast, when patient changing position to standing, without any post-syncopal confusion. Managed for CHF
exacerbation. Questionable RLL pneumonia - empiric Abx for 5 days. Patient was recommended rehab, but declined. Accidental findings of pituitary mass- neroSx follow up and endocrinology f/u as outpatient. Patient denied visual field defects. He
verbalized understanding of the instructions. Medically stable for d/c after final cardiology recommendations
A/P:
#Syncope
#A.fib, permanent
No orthostatic hypotension
Episodes of bradycardia - decrease BB
Echo: dilated aortic root 4.5cm - stable, slightly worse TR and pulmonary HTN
Telemetry
#Acute hypoxic respiratory insufficiency 2/2 Acute on chronic HFpEF
Echo, follow electrolytes, lasix as per cardiology
Daily weight
Cardio for further AC plans - patient declined switch to Warfarin initially
#RLL atelectasis vs pneumonia with unspecified organism
with mild leukocytosis reasonable to treat with Rocephin/Doxy x5 days
check COVID-19 and influenza
#Pituitary mass
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
TSH WNL
HGbA1c 5.8%
NeuroSx consult: outpatient f/u with endo and neuroSx
#Seizure d/o
no signs of breakthrough seizures at this time
Tegretol level WNL
seizure precautions
#CAD s/p CABG
#Essential HTN
cont home meds with aforementioned adjustments
DVT ppx ELiquis
DNR/DNI
I have spent at least 56min reviewing chart, test results, communication with consultants and direct patient care
Anticipated Discharge: Within 24 hours
Subjective/Interval History
-
Date of Service: August 03, 2024
Objective Data
-
Labs:
Laboratory Results
08/03/24
07:22
Sodium Pending
Potassium Pending
Chloride Pending
Carbon Dioxide Pending
BUN Pending
Creatinine Pending
Glucose Pending
Calcium Pending
Vital Signs:
Vital Signs
Temp Pulse Resp BP Pulse Ox
97.5 F 63 16 155/55 96
08/03/24 07:30 08/03/24 07:30 08/03/24 07:30 08/03/24 07:30 08/03/24 07:30
I&O
08/02/24 08/03/24 08/04/24
06:59 06:59 06:59
Intake Total 660 / 660 480 / 480
Output Total 1860 / 1860 1770 / 1770
Balance -1200 / -1200 -1290 / -1290
Review of Systems
-
History Source: Patient
All other systems: Reviewed and negative
Physical Exam
-
General: No Apparent Distress and Comfortable
Respiratory: Clear to Auscultation
GI: Soft, Nontender and Nondistended
Genito-urinary: No Costovertebral Tender
Musculoskeletal: No Clubbing, No Cyanosis and No Edema
Neuro: Awake, Alert, Oriented and AO x 3
Psych: Calm
[2024-08-03] MEDS: LASIX 60 MG IV (08:33)
[2024-08-03 10:59] LABS: Blood Urea Nitrogen 36 mg/dl (9-20); Calcium 8.5 mg/dl (8.4-10.2); Carbon Dioxide 34 mmol/L (22-30); Chloride 91 mmol/L (98-107); Estimated Creatinine Clearance 84 ml/min; Glucose 177 mg/dl (70-99); Potassium 3.8 mmol/L (3.5-5.1); Sodium 135 mmol/L (135-145); eGFR > 60.00
[2024-08-03] MEDS: ROCEPHIN 1000 MG IV (11:21)
[2024-08-03] MEDS: STERILE WATER FOR INJECTION 10 ML IV (11:21)
[2024-08-03 11:30] VITALS: BP 117/58
--- NOTE | 2024-08-03 12:39 | W.DCSUMMARY ---
Addendum entered and electronically signed by Randy Benson MD 08/03/24 13:21:
As per further clarification from Cardiology - patient was not compliant with daily Furosemide, advised to continue same Furosemide 40mg daily without change
Original Note:
Discharge Summary
Discharge Data
Date of Admission: 08/01/24
Date of Discharge: 08/03/24
-
Pending Results: No
Hospital Course
84yo M with PMHX of HFpEF, CAD s/p CABG, Afib, HTN, HLD, seizure d/o came with recurrent syncope. Started appr 2 weeks ago, happening upon breakfast, when patient changing position to standing, without any post-syncopal confusion. Managed for CHF
exacerbation. Questionable RLL pneumonia - empiric Abx for 5 days. Patient was recommended rehab, but declined. Accidental findings of pituitary mass- neroSx follow up and endocrinology f/u as outpatient. Patient denied visual field defects. He
verbalized understanding of the instructions. Medically stable for d/c on Lasix BID as per cardiology. BMP in 1 week.
I have spent at least 56min reviewing chart, test results, communication with consultants and direct patient care
patient was managed for:
#Syncope
#A.fib, permanent
#Acute hypoxic respiratory insufficiency 2/2 Acute on chronic HFpEF
#RLL atelectasis vs pneumonia with unspecified organism
#Pituitary mass
#Seizure d/o
#CAD s/p CABG
#Essential HTN
#Dilated aortic root with ascending aortic aneurism 4.2cm
Discharge Plan
-
Patient Disposition: Home with Home Care
Discharge Diagnosis/Procedures: CHF
Diet: Low Sodium
Activity: As tolerated
Driving Restrictions: As prior to admission
Blood Work: BMP with PCP in 1 week
Instructions: *CBC Heart Failure Instructions
Referrals:
Cash Moreno MD [Active] - in less than 1 week
Tanya Bean MD [Consulting Staff] - in one to two weeks
Ericka Redd MD [Active] -
(Follow up with Dr. Redd after your discharge
[address] [place] [address] )
UNKNOWN - PT DOES,NOT KNOW [Family Provider] -
Prescriptions:
New
furosemide [Lasix] 40 mg tablet
40 mg PO BID Qty: 60 0RF
furosemide 40 mg Tablet
40 mg PO BID AT 0800,1600 Qty: 60 0RF
doxycycline hyclate 100 mg Capsule
100 mg PO Q12 Qty: 6 0RF
cefpodoxime 200 mg tablet
200 mg PO Q12H Qty: 6 0RF
Continued
cyanocobalamin (vitamin B-12) 1,000 MCG tablet
1,000 mcg PO DAILY
ascorbic acid (vitamin C) [Vitamin C] 500 MG tablet
500 mg PO DAILY
Eliquis 5 MG tablet
5 mg PO BID
carbamazepine 200 MG tablet
200 mg PO TID
multivitamin Tablet
1 tab PO DAILY
metoprolol succinate 50 mg tablet extended release 24 hr
50 mg PO DAILY
acetaminophen 500 mg Tablet
500 mg PO Q4HPRN PRN (Reason: mild pain)
calcium carbonate 500 mg calcium (1,250 mg) Tablet
500 mg PO DAILY
nitroglycerin 0.4 mg tablet, sublingual
0.4 mg sublingual [id number] PRN (Reason: chest pain)
rosuvastatin 20 mg tablet
20 mg PO DAILY
lisinopril 20 mg tablet
20 mg PO DAILY
Discontinued
furosemide 40 mg Tablet
40 mg PO DAILY Qty: 30 0RF
Discharge Orders:
Discharge Patient (As Directed); Ordered 08/03/24
Ordered By: Randy Benson
Discharge Date and Time
Print Language: ANGOLAN
--- NOTE | 2024-08-03 12:42 | W.PN.CD ---
Today's Communication / Plan
-
Changed to oral diuretic 40 mg daily.
Monitor weights.
Outpatient follow-up at [facility] cardiology
Will consider additional outpatient cardiac monitoring on that follow-up.
Impression / Plan
-
Javi Sage is an 84-year-old man with HFpEF, CAD status post CABG, and permanent atrial fibrillation on Eliquis who presents with syncope and dyspnea on exertion.
Syncope
-Unclear if this was a true syncopal episode as patient is a poor historian. Differential includes vasovagal syncope, cardiac syncope, and seizure
-orthostatics ok
-Decrease metoprolol to 25 mg daily given bradycardia may have been a cause of 'syncope'
-Continue to monitor on telemetry. No ventricular arrhythmias thus far. Permanent atrial fibrillation.
Dyspnea on exertion
-Worsening dyspnea at home with hypoxia on home pulse ox
-negative 2200 cc since admission
-Suspected mild HF exacerbation with elevated NT proBNP, weight significantly up from last admission (previously 78 kg), increase in PASP, and small pleural effusions on CXR
-Weight trending down and respiratory status appears stable.
-Changed back to Lasix. Initially it appeared his Lasix dosing was 40 mg a day so dose increase was going to be to Lasix to 40 mg twice daily as it turns out he was not taking his Lasix every day probably only 3 days a week based on this would
discharge on Lasix 40 mg a day and have the patient take it consistently
Permanent atrial fibrillation
-Decrease metoprolol as above, rate remains adequately controlled.
-Continue Eliquis for anticoagulation. I did discuss with him that this may not be therapeutic given his carbamazepine. A transition to Coumadin had previously been discussed but patient had not wanted to make the change.
Hypertension
-Check orthostatic vitals
-Continue lisinopril 20 mg daily for now
CAD status post CABG
-Continue rosuvastatin
-No aspirin due to systemic anticoagulation
Ascending aortic aneurysm: 4.[address] of chest this admission. This is stable.
TTE 07/30/24: Normal left ventricular size and systolic function. LVEF 55%.
Moderate concentric LV hypertrophy. Cannot rule out wall motion abnormalities.
Normal RV size and function.
Mild aortic stenosis.
Moderate aortic regurgitation.
Mild to moderate tricuspid regurgitation. PASP 40-45 mmHg.
Dilated aortic root (4.5 cm) and ascending aorta (4.2 cm).
Compared to prior echocardiogram on 12/17/2023, tricuspid regurgitation has
increased slightly and PASP has increased from 20-25 mmHg to 40-45 mmHg.
Aortic regurgitation is similar on direct comparison. Aortic root and
ascending aorta measurements are slightly different. Given poor visualization
on this study, recommend cross-sectional imaging for more accurate assessment.
Physical Exam
Vital Signs/Labs
Vital Signs
Temp Pulse Resp BP Pulse Ox
97.5 F 65 16 117/58 95
08/03/24 11:30 08/03/24 11:30 08/03/24 11:30 08/03/24 11:30 08/03/24 11:30
08/02/24 08/03/24 08/04/24
06:59 06:59 06:59
Actual Weight 84.056 kg 83.546 kg
08/01/24 07:28
08/03/24 10:11
Magnesium 2.0 mg/dl (1.6-2.3) 08/03/24 10:11
TSH Cancelled 07/30/24 06:00
07/29/24
16:31
[id number] Pept 3300
Physical Exam
Constitutional: No acute distress
Cardiovascular: Rhythm/rate is irregular
Respiratory: Respiratory effort normal
GI: Soft
Neuro/Psych: Alert
Data Reviewed
-
Date of Service: August 03, 2024
Medical Decision Making: Reviewed Test Results
EKG: Report Reviewed by me
Labs: Labs Reviewed by me
--- NOTE | 2024-08-03 13:51 | CM ---
Javi is being discharged to home today with plan for [facility] for PT/OT and RN. His friend Pinky will drive him home.
IMM issued, signed and placed in chart. Javi was provided with a copy.
Plan: Discharge to home with [facility] services.
[2024-08-03 15:00] VITALS: BP 136/66
== END 2024-08-03 16:19 | disposition home health service (06) | DRG 291 ==
LOC: 4 EAST ACU 10:45
PROVIDERS: Emergency Medicine; Nurse Practitioner; ADMITTING PHYSICIAN Internal Medicine; ATTENDING PHYSICIAN Internal Medicine; CONSULT PHYSICIAN Student in an Organized Health Care Education/Training Program; EMERGENCY PHYSICIAN Student in an Organized Health Care Education/Training Program; OTHER PHYSICIAN Nurse Practitioner Family
DX: I11.0 Hypertensive heart disease with heart failure (principal); I50.33 Acute on chronic diastolic (congestive) heart failure; I48.21 Permanent atrial fibrillation; J98.11 Atelectasis; I25.10 Atherosclerotic heart disease of native coronary artery without angina pectoris; Z95.1 Presence of aortocoronary bypass graft; I77.810 Thoracic aortic ectasia; R09.02 Hypoxemia; R06.89 Other abnormalities of breathing; Z11.52 Encounter for screening for COVID-19; R55 Syncope and collapse; G40.909 Epilepsy, unspecified, not intractable, without status epilepticus; Z66 Do not resuscitate
CPT/HCPCS: 70450; 70553; 71046; 71275; 80048; 80053; 80156; 81003; 82533; 82607; 83036; 83735; 83880; 84443; 84484; 85025; 85027; 87502; 87811; 93005; 93306; 97116; 97162; 97166; 97530; 99285; A9575; Q9967

== ENCOUNTER → 2024-08-15 12:31 | Outpatient (REF) | payer MEDICARE, BC, SELFPAY ==
[2024-08-15 14:02] LABS: ALT (SGPT) 24 U/L (0-50); AST (SGOT) 25 U/L (17-59); Albumin 3.7 g/dl (3.5-5.0); Alkaline Phosphatase 116 U/L (38-126); Blood Urea Nitrogen 34 mg/dl (9-20); Calcium 8.7 mg/dl (8.4-10.2); Carbon Dioxide 35 mmol/L (22-30); Chloride 96 mmol/L (98-107); Glucose 85 mg/dl (70-99); Potassium 4.5 mmol/L (3.5-5.1); Sodium 136 mmol/L (135-145); Total Bilirubin 0.3 mg/dl (0.2-1.3); Total Protein 6.4 g/dl (6.3-8.2); eGFR > 60.00
[2024-08-15 14:15] LABS: Free T4 0.66 ng/dl (0.78-2.19)
[2024-08-15 14:18] LABS: FSH 1.3 mIU/ml (1.55-9.74); Luteinizing Hormone 2.15 mIU/ml (1.24-7.80)
[2024-08-15 14:29] LABS: Cortisol, Random 8.7 ug/dl; TSH 3.53 uIU/ml (0.47-4.68)
[2024-08-18 02:20] LABS: % Free Testosterone 0.7 % (1.6-2.9); Free Testosterone 6 pg/mL (47-244); Sex Hormone Binding Globulin 115 nmol/L (19-76); Total Testosterone 87 ng/dL (300-720)
[2024-08-18 03:25] LABS: Adrenocorticotropic Hormone 44.3 pg/mL (7.2-63.3)
== END ==
LOC: REG 12:31
PROVIDERS: ATTENDING PHYSICIAN Internal Medicine Endocrinology, Diabetes & Metabolism; FAMILY PHYSICIAN Internal Medicine; REFERRING PHYSICIAN Internal Medicine Rheumatology
DX: D35.2 Benign neoplasm of pituitary gland (principal)
CPT/HCPCS: 36415; 80053; 82024; 82533; 83001; 83002; 84146; 84270; 84305; 84402; 84403; 84439; 84443

== ENCOUNTER 2024-08-27 23:30 | Inpatient (IN) | payer MEDICARE, BC, SELFPAY ==
[2024-08-27 19:57] VITALS: BP 177/82
[2024-08-27 20:15] VITALS: BMI 26.9
[2024-08-27 20:18] VITALS: BP 171/84
[2024-08-27 20:24] LABS: % Basophils 0.7 % (0-2); % Eosinophils 2.3 % (0-6); % Immature Granulocytes 0.4 % (0-0.5); % Lymphocytes 22.2 % (20.5-51.1); % Monocytes 12.7 % (1.7-9.3); % Neutrophils 61.7 % (42.2-75.2); Absolute Basophils 0.1 10^3/uL (0-0.2); Absolute Eosinophils 0.2 10^3/uL (0-0.7); Absolute Lymphocytes 2.3 10^3/uL (1.2-3.4); Absolute Monocytes 1.3 10^3/uL (0.1-0.6); Absolute Neutrophils 6.4 10^3/uL (1.4-6.5); Hematocrit 39.7 % (39.0-52.0); Hemoglobin 13.1 g/dL (13.0-18.0); Mean Corpuscular Volume 93.9 fL (80.0-94.0); Mean Platelet Volume 10.3 fL (7.4-10.4); Nucleated Red Blood Cells % 0 % (-); Platelet Count 212 10^3/uL (130-400); Red Blood Cell Count 4.23 10^6/uL (4.70-6.10); Red Cell Dist. Width 14.2 % (11.5-14.5); White Blood Cell Count 10.3 10^3/uL (4.8-10.8)
--- NOTE | 2024-08-27 20:35 | ED.GENMED ---
History of Present Illness
General
Chief Complaint: Breathing Problem
Time Seen by Provider: 08/27/24 20:13
History of Present Illness
History of Present Illness:
Patient is a 84-year-old male with history of HFpEF, CAD status post CABG, A-fib, hypertension, hyperlipidemia presenting to the emergency department shortness of breath. Patient states this has been ongoing for a week now. He does note that his
weight has increased. He does have orthopnea. No chest pain. No nausea vomiting. No diarrhea. He does state that he fell yesterday and he is having some pain to his left ankle. He has been compliant with his blood thinner. Per chart review it
appears that patient was seen here at the end of July and was admitted for a CHF exacerbation. He is on Lasix and has been compliant with it however missed it for the past day.
Past History
Past History
ED Past Medical History: CAD, HTN, Hypercholesterolemia and Seizures
Social History
Tobacco: Non-smoker
Personal:
Living: with family
Employment: Retired
Phy Exam
Physical Exam
Physical Exam:
GENERAL: in no acute distress
HEENT: normocephalic, extraocular movements intact, moist oral mucosa
NECK: normal inspection
RESPIRATORY: Mild respiratory distress, crackles at the bases
CARDIOVASCULAR: regular rate and rhythm
ABDOMEN/: soft, non-distended, non-tender to palpation, no rebound or guarding
EXTREMITIES: non-tender, bilateral pitting edema bilateral
NEUROLOGIC: awake and alert, moves all extremities
SKIN: warm
Scores
Heart Failure Risk
Heart Failure Risk Score: Yes
History of Stroke or TIA: No
History of intubation for respiratory distress: No
Heart rate on ED arrival >/= 110: No
SaO2 <90% on arrival on room air: Yes
HR >/=110 during 3min walk test (or too ill to perform test): Yes
ECG has acute ischemic changes: No
Urea >/=12mmol/L (BUN 33.6mg/dL): No
Serum CO2>/=35mmol/L: No
Troponin I or T elevated to MA Level (0.4mg/dL): No
NT-proBNP >/=5,000ng/L (5,000pg/ml): No
HF Risk Score: 3
Admission Status: HIGH RISK 15.9% Consider SNF treatment or admission to hospital
Course
Orders/Labs/Results
Orders:
Orders
08/27/24 20:01
Electrocardiogram (*1) Urgent
Reason for Study: Other
Other Reason for Exam: Respiratory Distress
Cardiac Monitoring- Treatment ONCE
EKG- Treatment ONCE
IV Insert/Care/Rem.- Treatment PRN
CR Chest - 2 Views Urgent
Comment:
Reason For Exam: respiratory distress
O2 Therapy [RESP] Urgent
Titrate/Wean O2 to maintain O2 sat greater than (%): 93
Special Instructions: TO MAINTAIN CONTINUOUS O2 SATS >/= 93%
Pulse Ox/cont/shift [RESP] Urgent
Quantity: 1
Special Instructions: continuous pulse ox
08/27/24 20:13
COVID-19 Antigen Urgent
Source: Nasal Swab
Complete Blood Count/With Diff Urgent
Comprehensive Metabolic Panel Urgent
NT-proBNP Urgent
Troponin I Urgent
Influenza A+B Rapid Molecular Urgent
KAITLIN Source: Nasal Swab
Specimen Description:
08/27/24 20:35
CR Ankle - Left Min 3 Views Urgent
Comment:
Reason For Exam: fall
08/27/24 21:47
Furosemide [Lasix] 40 mg IV NOW STA
Abnormal Lab Results
08/27/24
20:13
RBC 4.23 L 10^6/uL
(4.70-6.10)
Absolute Monos (auto) 1.3 H 10^3/uL
(0.1-0.6)
Monocytes % 12.7 H %
(1.7-9.3)
Chloride 97 L mmol/L
(98-107)
Carbon Dioxide 34 H mmol/L
(22-30)
BUN 24 H mg/dl
(9-20)
Creatinine 0.6 L mg/dL
(0.7-1.3)
Glucose 159 H mg/dl
(70-99)
08/27/24 20:13
08/27/24 20:13
Vital Signs
Initial and Last Documented VS:
Initial Vital Signs
Temp Pulse Resp BP Pulse Ox
97.7 F 62 24 177/82 95
08/27/24 19:57 08/27/24 19:57 08/27/24 19:57 08/27/24 19:57 08/27/24 19:57
Last Documented Vital Signs
Temp Pulse Resp BP Pulse Ox
97.7 F 60 16 153/61 100
08/27/24 20:18 08/27/24 21:15 08/27/24 21:15 08/27/24 21:00 08/27/24 21:15
MDM/Problems Addressed
Differential Diagnosis Includes:
Patient is a 84-year-old male with history of HFpEF, A-fib on Eliquis recent admission for CHF exacerbation presenting to the emergency department with shortness of breath. On arrival patient was hypoxic and placed on nasal cannula. On exam he
does have crackles and does have pitting edema bilaterally. Concern for CHF exacerbation versus atypical ACS versus pneumonia though less likely. Considered PE though unlikely given he is compliant with his Eliquis. Will check blood work and
x-ray. Will reevaluate for need for BiPAP. EKG per my interpretation with T wave inversions in lateral leads though it is similar to prior. Will check troponin.
*Critical Care Note
Total Time (30-74mins, 75-104mins- exclusive of procedures): Not Applicable
Update Note
Update Note:
On reevaluation patient is asleep resting comfortably. His belly breathing has improved. Blood work does show elevated BNP. Chest x-ray per my interpretation with vascular congestion. Will give Lasix. Discussed with hospitalist who accepted
patient to their service.
ED Attending Note
-
Portions of this chart may have been created with voice recognition software.� Occasional wrong word or��sound alike� substitutions may have occurred due to the inherent limitations of voice recognition software.
Discharge Plan
Departure
Prescriptions:
No Action
cyanocobalamin (vitamin B-12) 1,000 MCG tablet
1,000 mcg PO DAILY
ascorbic acid (vitamin C) [Vitamin C] 500 MG tablet
500 mg PO DAILY
Eliquis 5 MG tablet
5 mg PO BID
carbamazepine 200 MG tablet
200 mg PO TID
multivitamin Tablet
1 tab PO DAILY
metoprolol succinate 50 mg tablet extended release 24 hr
50 mg PO DAILY
acetaminophen 500 mg Tablet
500 mg PO Q4HPRN PRN (Reason: mild pain)
calcium carbonate 500 mg calcium (1,250 mg) Tablet
500 mg PO DAILY
nitroglycerin 0.4 mg tablet, sublingual
0.4 mg sublingual [id number] PRN (Reason: chest pain)
rosuvastatin 20 mg tablet
20 mg PO DAILY
lisinopril 20 mg tablet
20 mg PO DAILY
doxycycline hyclate 100 mg Capsule
100 mg PO Q12 Qty: 6 0RF
cefpodoxime 200 mg tablet
200 mg PO Q12H Qty: 6 0RF
furosemide 40 mg Tablet
40 mg PO DAILY Qty: 30 0RF
Referrals:
Rut Chaudhry MD [Family Provider] -
Interventions
Interventions:
*Risk Screen - Suicide Last Done: 08/27/24 19:57
*General Assessment Last Done: 08/27/24 19:57
*Neglect/Abuse Screening Last Done: 08/27/24 19:57
ED- Fall Risk Assessment Last Done: 08/27/24 20:21
*ED COVID-19 Vaccine History Last Done: 08/27/24 19:57
ED- Cardiac Assessment Last Done: 08/27/24 20:21
ED- Pulmonary Assessment Last Done: 08/27/24 20:21
Discharge Date and Time
Print Language: TRISTANIAN
[2024-08-27 20:40] LABS: COVID-19 Antigen Negative (Negative)
[2024-08-27 20:41] LABS: ALT (SGPT) 32 U/L (0-50); AST (SGOT) 37 U/L (17-59); Albumin 3.7 g/dl (3.5-5.0); Alkaline Phosphatase 116 U/L (38-126); Blood Urea Nitrogen 24 mg/dl (9-20); Calcium 8.9 mg/dl (8.4-10.2); Carbon Dioxide 34 mmol/L (22-30); Chloride 97 mmol/L (98-107); Estimated Creatinine Clearance 101 ml/min; Glucose 159 mg/dl (70-99); Potassium 4.7 mmol/L (3.5-5.1); Sodium 136 mmol/L (135-145); Total Bilirubin 0.5 mg/dl (0.2-1.3); Total Protein 6.4 g/dl (6.3-8.2); eGFR > 60.00
[2024-08-27 20:50] LABS: NT-proBNP 3440 pg/ml; Troponin I < 0.012 ng/ml
[2024-08-27 21:00] VITALS: BP 153/61
[2024-08-27 22:00] VITALS: BP 180/79
--- NOTE | 2024-08-27 22:29 | HPS.HSE ---
Family Physician
-
Family Physician: Rut Chaudhry
Chief Complaint
-
Shortness of breath at rest
History of Present Illness
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
mass for which was sudden, this pain will presents to the emergency department with shortness of breath.
He was hypertensive to 180 systolic, rate was in the 60s and he was satting 93% on 2 L.
Patient was recently hospitalized here about 3 weeks ago with CHF exacerbation and was found to have BUN/creatinine normal at that time. He was treated with diuresis and discharged on furosemide 40 twice daily as well as a course of doxycycline and
cefpodoxime for a presumed community-acquired pneumonia. Patient unable to provide much history. Caregiver almost daily the patient has been having trouble sleeping over the last several days. He is unable to sleep on his bed and tries to sleep
in incline. He is somnolent during the daytime, lethargy and has decreased oral intake on this date caregiver provided food.
Today the patient was having a shortness of breath while sitting down. He checked his oxygen level and his O2 sats was in the 80s. He has no cough. He denies any fevers or chills. Reports feeling a little lightheaded. They report that he has
had increased swelling in his bilateral lower extremities. He denies any chest pain. He denies any fevers or chills. There are no known sick contacts.
In the emergency department he was hypertensive to 180 systolic, satting 93% on 2 L and in atrial fibrillation with rate in the 60s. Chest x-ray shows low lung volumes with bibasilar opacification, troponin was negative, ECG shows atrial
fibrillation, rate was 81 with PVCs. BNP was 3400. CBC was completely within normal limits and unremarkable, chemistries were unchanged from prior. COVID test was negative. Influenza test negative. 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 Continues Tegretol. Caregiver seems to indicate that there was a new medication
added but no records of that medication in the chart.
Medical History
Past Medical History
Past Medical History: Reports Arrhythmia (Permanent atrial fibrillation), CAD (Status post CABG), CHF and HTN
Additional Past Medical History:
Seizure disorder on Tegretol
Past Surgical History: Reports Cardiac (CABG)
Social History
Tobacco: Non-smoker
Alcohol: None
Drug: None
Personal:
Living: Alone
Employment: Retired
Family History
Family History: Not pertinent
Allergies / Home Medications
Allergies reflects when Allergies were last updated in [facility].
Home Medications with original date entered in [facility]
Allergy/Medication List:
Allergies
Allergy/AdvReac Type Severity Reaction Status Date / Time
No Known Allergies Allergy Verified 10/01/21 18:15
Home Medications
ascorbic acid (vitamin C) 500 mg tablet (Vitamin C) 500 mg PO DAILY Supplement 07/19/16
cyanocobalamin (vitamin B-12) 1,000 mcg tablet 1,000 mcg PO DAILY Supplement 07/19/16
apixaban 5 mg tablet (Eliquis) 5 mg PO BID Blood clot prevention/tx 10/02/21
carbamazepine 200 mg tablet 200 mg PO TID Seizures 10/02/21
acetaminophen 500 mg tablet 500 mg PO Q4HPRN PRN mild pain 12/14/23
calcium carbonate 500 mg PO DAILY Supplement 12/14/23
metoprolol succinate 50 mg tablet,extended release 24 hr 50 mg PO DAILY Blood Pressure 12/14/23
multivitamin 1 tab PO DAILY Supplement 12/14/23
nitroglycerin 0.4 mg sublingual tablet 0.4 mg sublingual [id number] PRN chest pain 12/14/23
rosuvastatin 20 mg tablet 20 mg PO DAILY High Cholesterol 12/14/23
lisinopril 20 mg tablet 20 mg PO DAILY Blood Pressure 07/29/24
cefpodoxime 200 mg tablet 200 mg PO Q12H #6 tabs 08/03/24
doxycycline hyclate 100 mg capsule 100 mg PO Q12 #6 caps 08/03/24
furosemide 40 mg tablet 40 mg PO DAILY #30 tabs 08/03/24
Review of Systems
-
History Source: Patient
Constitutional: Reports No Symptoms
EENT: Reports Runny Nose
Respiratory: Reports Trouble Breathing
Cardiac: Reports No Symptoms
Abdomen/GI: Reports No Symptoms
: Reports No Symptoms
Musculoskeletal: Reports No Symptoms
Skin: Reports No Symptoms
Neurological: Reports No Symptoms
Endocrine: Reports No Symptoms
Hematologic/Lymphatic: Reports No Symptoms
Psych: Reports No Symptoms
Physical Exam
Vital Signs
Vital Signs
Temp Pulse Resp BP Pulse Ox
97.7 F 60 16 153/61 100
08/27/24 20:18 08/27/24 21:15 08/27/24 21:15 08/27/24 21:00 08/27/24 21:15
Physical Exam
General: No Apparent Distress and Comfortable
HEENT: NormoCephalic, Anicteric, Moist mucous membranes and Atraumatic
Respiratory: Crackles
Cardiac: S1/S2 and Irregular Rhythm
Breast: Deferred by me
GI: Soft, Non Tender and Normal Bowel Sounds
Rectal: Deferred by Provider
Genito-urinary: Deferred by me
Musculoskeletal: No Clubbing, No Cyanosis, Edema, Left Lower Extremity and Edema, Right Lower Extremity
Skin: Warm
Neuro: Oriented, Nonfocal/grossly intact and Other (somnolent)
Hematologic/Lymphatic: No Lymphadenopathy
Psych: Calm
Laboratory Results
-
08/27/24 20:13
08/27/24 20:13
Laboratory Results
Total Bilirubin 0.5 mg/dl (0.2-1.3) 08/27/24 20:13
AST 37 U/L (17-59) 08/27/24 20:13
ALT 32 U/L (0-50) 08/27/24 20:13
Alkaline Phosphatase 116 U/L (38-126) 08/27/24 20:13
Troponin I < 0.012 ng/ml 08/27/24 20:13
Data Reviewed
-
Diagnostic Radiology: Image Personally Visualized and interpreted and Report Reviewed by me
Medical Tests (Nuc Med, Echo, EKG etc): Image Personally Visualized and interpreted
Lab Data: Labs Reviewed by me
Old Records: Reviewed
Impression/Plan
-
IMPRESSION:
84 y.o male with sleep disorder, shortness of breath and hypoxia. Likely orthopnea with volume overload. He does have bilateral opacities and increased leg edema. BNP elevated. Did not take diuretics today and unsure total compliance. Recently
finished course of abx for xray findings which appear unchanged.
PLAN:
1. Hypoxia -suspect CHF exacerbation given findings above. Negative, covid/flu.
- admit to telemetry
- increase lasix to 60 iv bid for now, recent echo July with LVEF 55%, moderate concentric LV hypertrophy
- check procalcitonin
- continue metoprolol 50
- lisinopril 20 daily
- cardiology consult.
2. Somnolence - possibly related to heart failure versus sleep apnea or obstruction. No sz like activity
- check tegretol level
- check venous blood gas
- nocturnal oximetry
- normal TFT on outpatient endocrine
3. AFIB
- continue apixaban and metoprolol
DVT PPX on apixaban
Code status - DNR
[2024-08-27 23:00] VITALS: BP 184/98
[2024-08-27] MEDS: LASIX 40 MG IV (23:11)
[2024-08-28] VITALS (11 sets, daily range): BP systolic 117–190; BP diastolic 55–90; BMI 25.8; BMI 25.9
[2024-08-28 00:04] LABS: Venous Blood Gas B.E. 6.3 mmol/L (-4 to +4); Venous Blood Gas HCO3 32.7 mmol/L (22-27); Venous Blood Gas O2 Sat % 91.6 %; Venous Blood Gas pCO2 54 mmHg (35-48); Venous Blood Gas pH 7.39 (7.32-7.43); Venous Blood Gas pO2 61 mmHg (30-50)
[2024-08-28 08:36] LABS: Hematocrit 39.3 % (39.0-52.0); Hemoglobin 12.9 g/dL (13.0-18.0); Mean Corp Hgb Conc. 32.8 g/dL (33.0-37.0); Mean Corpuscular Hgb 30.8 pg (27.0-31.0); Mean Corpuscular Volume 93.8 fL (80.0-94.0); Mean Platelet Volume 10.5 fL (7.4-10.4); Platelet Count 210 10^3/uL (130-400); Red Blood Cell Count 4.19 10^6/uL (4.70-6.10); Red Cell Dist. Width 14.1 % (11.5-14.5); White Blood Cell Count 7.9 10^3/uL (4.8-10.8)
[2024-08-28 08:43] LABS: Tegretol (Carbamazepine) 8.3 ug/ml (4-12)
[2024-08-28 08:53] LABS: Procalcitonin < 0.05 ng/ml (0.0-0.25)
--- NOTE | 2024-08-28 08:59 | CON.CAR ---
Addendum entered and electronically signed by Clint Chow MD 08/28/24 11:10:
84 yo male with PMH of chronic HFPEF, permanent A fib on eliquis is admitted with SOB. We are consulted for acute on chronic HFPEF. He reports SOB, edema, weight gain. Exam with irregular rhythm, II/ systolic murmur at RUSB, 1+ LE edema. Cr 0.6.
Tele: A fib 60s-70s.
Acute on chronic HFPEF. At home: lasix 40mg daily. Continue lasix 40mg IV bid, with close monitoring of labs, tele, weight. Suspect he will need lasix 40mg bid at home after this admission.
Original Note:
Consultation
Consultation Request
Date/Time Consultation Requested: 08/28/24 0323
Date/Time Consultation Performed: 08/28/24 0858
Requesting Provider: Funmilayo Zarate NP
Performing Provider: Tonia LOFTON for Dr. Chow
Reason for Consultation: CHF
Medical History
-
Chief Complaint: SOB
History of Present Illness:
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
in June and Lasix increased for excess volume. However, he was hospitalized about a month ago after possible episode of syncope and was treated for CHF and PNA. He was d/c'd on lasix 40 mg daily (he had not been taking each day). He is back for
SOB and hypoxemia in 80's per chart. He is admitted for CHF exacerbation. He is on 2L NC and has received a dose of IV lasix. He is in no distress at the time of my assessment. He is not a reliable historian to my assessment, despite being AAO x 3.
Past Medical History
Past Medical History: Arrhythmias, CAD, CHF, HTN and Hypercholesterolemia
Social History
Tobacco: Non-Smoker
Family History
Family History: Reviewed & Not Pertinent
Allergies / Home Medications
Allergy/AdvReac Type Severity Reaction Status Date / Time
No Known Allergies Allergy Verified 10/01/21 18:15
�Medication �Instructions �Recorded �Confirmed �Type
ascorbic acid (vitamin C) 500 mg 500 mg PO DAILY Supplement 07/19/16 07/29/24 History
tablet (Vitamin C)
cyanocobalamin (vitamin B-12) 1,000 mcg PO DAILY Supplement 07/19/16 07/29/24 History
1,000 mcg tablet
apixaban 5 mg tablet (Eliquis) 5 mg PO BID Blood clot 10/02/21 07/29/24 History
prevention/tx
carbamazepine 200 mg tablet 200 mg PO TID Seizures 10/02/21 07/29/24 History
acetaminophen 500 mg tablet 500 mg PO Q4HPRN PRN mild pain 12/14/23 07/29/24 History
calcium carbonate 500 mg PO DAILY Supplement 12/14/23 07/29/24 History
metoprolol succinate 50 mg 50 mg PO DAILY Blood Pressure 12/14/23 07/29/24 History
tablet,extended release 24 hr
multivitamin 1 tab PO DAILY Supplement 12/14/23 07/29/24 History
nitroglycerin 0.4 mg sublingual 0.4 mg sublingual [id number] PRN 12/14/23 07/29/24 History
tablet chest pain
rosuvastatin 20 mg tablet 20 mg PO DAILY High Cholesterol 12/14/23 07/29/24 History
lisinopril 20 mg tablet 20 mg PO DAILY Blood Pressure 07/29/24 07/29/24 History
cefpodoxime 200 mg tablet 200 mg PO Q12H #6 tabs 08/03/24 Rx
doxycycline hyclate 100 mg capsule 100 mg PO Q12 #6 caps 08/03/24 Rx
furosemide 40 mg tablet 40 mg PO DAILY #30 tabs 08/03/24 Rx
Review of Systems
-
History Source: Patient and Other (and chart)
Respiratory: Trouble Breathing
Musculoskeletal: Edema
Physical Exam
Vital Signs
Temp Pulse Resp BP Pulse Ox
98 F 69 24 172/88 98
08/28/24 07:05 08/28/24 07:05 08/28/24 07:05 08/28/24 07:05 08/28/24 07:05
Lab Results
08/28/24 08:12
Troponin I < 0.012 ng/ml 08/27/24 20:13
Kie-C-Qnwijzbgwpl Pept 3440 pg/ml 08/27/24 20:13
Physical Exam
General: Well Developed, Well Nourished and No Apparent Distress
HEENT: Normocephalic and Anicteric
Respiratory: Other (diminished to bases; On O2 by NC)
Cardiac: Regular Rhythm
Musculoskeletal: Edema (moderate BLE edema)
Skin: Warm and Dry
Neuro: AO x 3
Psych: Calm
Impression / Plan
-
Foyfl-vu-sdgjbgq HFpEF:
-Echo 07/30/24: EF 55%. Moderate concentric LV hypertrophy. Biatrial enlargement. Dilated aortic root (4.5 cm) and ascending aorta (4.2 cm). Mild mitral regurgitation. Mild aortic stenosis. Moderate aortic regurgitation. Mild to moderate tricuspid
regurgitation. PASP 40-45 mmHg.
-BNP 3400, was 3300 last month. Weight up 86.4 kg from 83.5 kg at recent d/c.
-I will order IV Lasix, which requires intensive monitoring
Permanent AFIB:
-rate-controlled
-continue metoprolol, continue Eliquis
CAD:
-stable without CP
HTN:
-elevated
-continue BB and ACEI and monitor with diuresis
Data Reviewed
-
EKG: Tracing Personally Visualized and interpreted (AFIB 81 BPM)
Radiology: Report Reviewed by me (CXR: Low lung volumes. Some bibasilar opacification again suspected which could represent atelectasis and/or pneumonia and small bilateral pleural effusions. No pneumothorax.)
Medical Tests (Nuc Med, Echo etc): Report Reviewed by me (echo as noted below)
Labs: Labs Reviewed by me
--- NOTE | 2024-08-28 09:15 | VNURNOTE ---
Chart reviewed. Patient is current with [facility] nursing, PT. Will continue to follow hospital course and DC plans.
[2024-08-28] MEDS: ELIQUIS 5 MG PO ×2 (09:54→20:16)
[2024-08-28] MEDS: CRESTOR 20 MG PO (09:54)
[2024-08-28] MEDS: TOPROL XL 50 MG PO (09:55)
[2024-08-28] MEDS: VITAMIN C 500 MG PO (09:55)
[2024-08-28] MEDS: OSCAL CAL 500 500 MG PO (09:55)
[2024-08-28] MEDS: TEGRETOL 200 MG PO ×3 (09:56→20:20)
[2024-08-28] MEDS: THERAGRAN 1 TABLET PO (09:56)
[2024-08-28] MEDS: VITAMIN B-12 1000 MCG PO (09:56)
[2024-08-28] MEDS: ZESTRIL 20 MG PO (09:56)
[2024-08-28] MEDS: LASIX 40 MG IV ×2 (10:08→16:19)
[2024-08-28 10:30] LABS: Blood Urea Nitrogen 23 mg/dl (9-20); Calcium 8.7 mg/dl (8.4-10.2); Carbon Dioxide 32 mmol/L (22-30); Chloride 97 mmol/L (98-107); Estimated Creatinine Clearance 101 ml/min; Glucose 83 mg/dl (70-99); Magnesium 2.2 mg/dl (1.6-2.3); Phosphorus 5.2 mg/dl (2.5-4.5); Potassium 4.7 mmol/L (3.5-5.1); Sodium 137 mmol/L (135-145); eGFR > 60.00
--- NOTE | 2024-08-28 13:16 | W.PN.HOSP.TC ---
Today's Communication/Plan
-
Continue diuresis
Assessment / Plan
Assessment / Plan
84 y.o male with sleep disorder, comes in with shortness of breath and hypoxia. Likely orthopnea with volume overload.
PLAN:
1. Hypoxia -suspect CHF exacerbation given findings above. Negative, covid/flu.
- follow on telemetry during diuresis
- Lasix to 60 iv bid, cardiology consulted for help with diuresis
- continue metoprolol 50
- lisinopril 20 daily
2. Somnolence - possibly related to heart failure versus sleep apnea or obstruction. No sz like activity
- outpatient follow up once med levels are checked.
3. AFIB
- continue apixaban and metoprolol
4. BUN/Creat > 20
- Follow closely during diuresis
DVT PPX on apixaban
Code status - DNR
Anticipated Discharge: 24 - 48 hours
Subjective/Interval History
-
Date of Service: August 28, 2024
Feels oK, was sleeping when I came to see him.
Objective Data
-
Labs:
Laboratory Results
08/28/24
08:12
WBC 7.9
Hgb 12.9 L
Hct 39.3
Plt Count 210
Sodium 137
Potassium 4.7
Chloride 97 L
Carbon Dioxide 32 H
BUN 23 H
Creatinine 0.6 L
Glucose 83
Calcium 8.7
Vital Signs:
Vital Signs
Temp Pulse Resp BP Pulse Ox
97.5 F 81 22 155/74 98
08/28/24 11:19 08/28/24 11:19 08/28/24 11:19 08/28/24 11:19 08/28/24 11:38
I&O
08/27/24 08/28/24 08/29/24
06:59 06:59 06:59
Output Total 1350 / 1350
Balance -1350 / -1350
Review of Systems
-
History Source: Patient
All other systems: Reviewed and negative
Physical Exam
-
General: Well Developed, Well Nourished, No Apparent Distress, Comfortable and Appears Chronically Ill
HEENT: Nose Appears Normal and Ears Appear Normal
Respiratory: Clear to Auscultation and Decreased Breath Sounds
Cardiac: Regular Rhythm and S1/S2
GI: Soft, Nontender and Nondistended
Musculoskeletal: Edema, Right Lower Extrem and Edema, Left Lower Extrem
Skin: Warm and Dry
Neuro: Awake, Alert, Oriented and AO x 3
Psych: Calm
Data Reviewed
-
Labs: Labs Reviewed by me
--- NOTE | 2024-08-28 14:31 | CM ---
CM met with Javi at bedside to complete IA. Javi lives with his friend Pinky; His recently.
They reside 2 story home with 2 entry steps and 7 steps to bed and bathroom. He is assisted in all activities of daily living. Pt is current with [facility] for PT/OT and RN services.
Will need PT OT for dc planning.
Pharmacy: [facility] [address] in [place]
PCP: DR Villagomez
Plan: Follow for PT/OT updates; Pt will likely discharge to home with resumption of [facility] services.
--- NOTE | 2024-08-28 16:04 | PTCARENOTE ---
Pt AAO x3, PAZ; refused OOB to chair activity so far this shift-'I just feel like sleeping'. VSS. Telemetry: A fib. On nc 2 lpm- pulse ox 100%, pt with marked HE/orthopnea; denies SOB. Abd large, soft, april PO well, compliant with 1800 ml fl
restriction. Voids clear lt alex urine in urinal. Resting in bed at present, no c/o. Will continue to monitor.
[2024-08-28] MEDS: NON-FORMULARY ITEM 1 UNIT PO (20:20)
[2024-08-28] MEDS: TYLENOL 650 MG PO (20:42)
[2024-08-29] VITALS (7 sets, daily range): BP systolic 107–153; BP diastolic 61–83; PULSE 80–98; BMI 25.5
[2024-08-29 08:43] LABS: Hemoglobin 13.8 g/dL (13.0-18.0); Mean Corp Hgb Conc. 33.7 g/dL (33.0-37.0); Mean Corpuscular Hgb 31.1 pg (27.0-31.0); Mean Corpuscular Volume 92.3 fL (80.0-94.0); Mean Platelet Volume 10.5 fL (7.4-10.4); Platelet Count 235 10^3/uL (130-400); Red Blood Cell Count 4.44 10^6/uL (4.70-6.10); White Blood Cell Count 9.7 10^3/uL (4.8-10.8)
--- NOTE | 2024-08-29 08:54 | W.PN.CD ---
Today's Communication / Plan
-
weight trenind down continue to monitor
monitor I/O and renal function ( labs pending)
wean )2 off.
Patient reports occasional lightheadedness wehn he stands at home. Monitor orthostatic vitals with diuresis
Impression / Plan
-
Friej-ci-esrsmnf HFpEF:
-Echo 07/30/24: EF 55%. Moderate concentric LV hypertrophy. Biatrial enlargement. Dilated aortic root (4.5 cm) and ascending aorta (4.2 cm). Mild mitral regurgitation. Mild aortic stenosis. Moderate aortic regurgitation. Mild to moderate tricuspid
regurgitation. PASP 40-45 mmHg.
-BNP 3400, was 3300 last month. Weight up 86.4 kg from 83.5 kg at recent d/c.
-I will order IV Lasix, which requires intensive monitoring
Permanent AFIB:
-rate-controlled
-continue metoprolol, continue Eliquis
CAD:
-stable without CP
HTN:
-elevated
-continue BB and ACEI and monitor with diuresis
Physical Exam
Vital Signs/Labs
Vital Signs
Temp Pulse Resp BP Pulse Ox
97.5 F 72 20 139/83 95
08/29/24 07:05 08/29/24 07:05 08/29/24 07:05 08/29/24 07:05 08/29/24 07:05
08/28/24 08/29/24 08/30/24
06:59 06:59 06:59
Actual Weight 86.296 kg 85.179 kg
08/29/24 07:42
Magnesium 2.2 mg/dl (1.6-2.3) 08/28/24 08:12
08/27/24
20:13
Phi-R-Yvlaxsmtfqx Pept 3440
LAB Results
08/27/24
20:13
Troponin I < 0.012
Physical Exam
Constitutional: No acute distress
Cardiovascular: Rhythm/rate is irregular
Respiratory: Wheeze Absent and Rhonchi Absent
GI: Soft
Neuro/Psych: Alert
Other: Other (mild wilber a left > right)
Data Reviewed
-
Date of Service: August 29, 2024
Medical Decision Making: Reviewed Test Results
X-Ray/CT/US/MRI/NUC/PET: Report Reviewed by me
Medical Tests (PFT, Pathology etc): Report Reviewed by me
Labs: Labs Reviewed by me
[2024-08-29 09:03] LABS: Blood Urea Nitrogen 34 mg/dl (9-20); Calcium 8.9 mg/dl (8.4-10.2); Carbon Dioxide 34 mmol/L (22-30); Chloride 93 mmol/L (98-107); Estimated Creatinine Clearance 101 ml/min; Glucose 92 mg/dl (70-99); Potassium 4.1 mmol/L (3.5-5.1); Sodium 135 mmol/L (135-145); eGFR > 60.00
[2024-08-29] MEDS: CRESTOR 20 MG PO (09:23)
[2024-08-29] MEDS: OSCAL CAL 500 500 MG PO (09:23)
[2024-08-29] MEDS: ELIQUIS 5 MG PO ×2 (09:23→20:58)
[2024-08-29] MEDS: TYLENOL 650 MG PO ×2 (09:23→21:01)
[2024-08-29] MEDS: TOPROL XL 50 MG PO (09:24)
[2024-08-29] MEDS: TEGRETOL 200 MG PO ×3 (09:24→20:58)
[2024-08-29] MEDS: VITAMIN C 500 MG PO (09:24)
[2024-08-29] MEDS: THERAGRAN 1 TABLET PO (09:24)
[2024-08-29] MEDS: ZESTRIL 20 MG PO (09:25)
[2024-08-29] MEDS: VITAMIN B-12 1000 MCG PO (09:25)
[2024-08-29] MEDS: LASIX 40 MG IV ×2 (09:25→15:52)
--- NOTE | 2024-08-29 15:44 | W.PN.HOSP.TC ---
Today's Communication/Plan
-
continue diuresis.
Assessment / Plan
Assessment / Plan
84 y.o male with sleep disorder, comes in with shortness of breath and hypoxia. Likely orthopnea with volume overload.
PLAN:
1. Hypoxia -suspect CHF exacerbation given findings above. Negative, covid/flu.
- follow on telemetry during diuresis
- cardiology consulted for help with diuresis - still needs more fluid to be removed
- follow cardiology notes daily
2. Somnolence - possibly related to heart failure versus sleep apnea or obstruction. No sz like activity
- outpatient follow up once med levels are checked.
3. AFIB
- continue apixaban and metoprolol
4. BUN/Creat > 20
- Follow closely during diuresis
- creatinine stable today
DVT PPX on apixaban
Code status - DNR
Anticipated Discharge: > 48 hours
Subjective/Interval History
-
Date of Service: August 29, 2024
No new complaints
Objective Data
-
Labs:
Laboratory Results
08/29/24
07:42
WBC 9.7
Hgb 13.8
Hct 41.0
Plt Count 235
Sodium 135
Potassium 4.1
Chloride 93 L
Carbon Dioxide 34 H
BUN 34 H
Creatinine 0.6 L
Glucose 92
Calcium 8.9
Vital Signs:
Vital Signs
Temp Pulse Resp BP Pulse Ox
97.5 F 62 20 141/83 98
08/29/24 15:07 08/29/24 15:07 08/29/24 15:07 08/29/24 15:07 08/29/24 15:07
I&O
08/28/24 08/29/24 08/30/24
06:59 06:59 06:59
Intake Total 1560 / 1560 420 / 420
Output Total 1350 / 1350 1150 / 1150 250 / 250
Balance -1350 / -1350 410 / 410 170 / 170
Review of Systems
-
History Source: Patient
All other systems: Reviewed and negative
Physical Exam
-
General: Well Developed, Well Nourished and No Apparent Distress
Respiratory: Decreased Breath Sounds
Cardiac: Regular Rhythm and S1/S2
GI: Soft, Nontender and Nondistended
Skin: Warm and Dry
Neuro: Awake and Alert
Psych: Calm
Data Reviewed
-
Labs: Labs Reviewed by me
[2024-08-30 03:50] VITALS: BP 159/79
[2024-08-30 06:00] VITALS: BMI 25.4
[2024-08-30 07:25] LABS: Hematocrit 38.4 % (39.0-52.0); Hemoglobin 13.2 g/dL (13.0-18.0); Mean Corp Hgb Conc. 34.4 g/dL (33.0-37.0); Mean Corpuscular Volume 90.1 fL (80.0-94.0); Platelet Count 203 10^3/uL (130-400); Red Blood Cell Count 4.26 10^6/uL (4.70-6.10); Red Cell Dist. Width 13.9 % (11.5-14.5); White Blood Cell Count 7.5 10^3/uL (4.8-10.8)
[2024-08-30] MEDS: ELIQUIS 5 MG PO ×2 (08:21→21:13)
[2024-08-30] MEDS: TOPROL XL 50 MG PO (08:21)
[2024-08-30] MEDS: CRESTOR 20 MG PO (08:21)
[2024-08-30] MEDS: THERAGRAN 1 TABLET PO (08:21)
[2024-08-30] MEDS: VITAMIN B-12 1000 MCG PO (08:21)
[2024-08-30] MEDS: TEGRETOL 200 MG PO ×3 (08:22→21:13)
[2024-08-30] MEDS: ZESTRIL 20 MG PO (08:22)
[2024-08-30] MEDS: VITAMIN C 500 MG PO (08:22)
[2024-08-30] MEDS: LASIX 40 MG IV ×2 (08:22→15:51)
[2024-08-30] MEDS: OSCAL CAL 500 500 MG PO (08:22)
[2024-08-30 08:45] VITALS: BP 156/74
[2024-08-30 08:53] LABS: Blood Urea Nitrogen 34 mg/dl (9-20); Calcium 8.6 mg/dl (8.4-10.2); Carbon Dioxide 37 mmol/L (22-30); Chloride 91 mmol/L (98-107); Estimated Creatinine Clearance 101 ml/min; Glucose 91 mg/dl (70-99); Potassium 4.2 mmol/L (3.5-5.1); Sodium 133 mmol/L (135-145); eGFR > 60.00
--- NOTE | 2024-08-30 10:51 | W.PN.HOSP.TC ---
Today's Communication/Plan
-
see A/P
Assessment / Plan
Assessment / Plan
HPI: 84 yo male with sleep disorder, came in with shortness of breath and hypoxia. Likely orthopnea with volume overload.
A/P:
# Acute hypoxic respiratory insufficiency, resolved
# suspect acute on chronic diastolic CHF
Negative covid/flu.
Cont IV lasix 40 mg BID, follow daily weight
cardiology consulted for diuresis
# Mild hyponatremia
Sodium level 133 today
monitor
# Somnolence, appear to have resolved
No sz like activity
# paroxysmal AFIB
# cardiac pauses noted on tele
continue apixaban
Decrease metoprolol from 50 to 25 mg daily with holding parameter for HR and SBP
# h/o seizure
Tegretol level WNL
Cont [employer]PER[employer] Tegretol
DVT PPX on apixaban
Code status - DNR
PT OT eval
DW Card
Anticipated Discharge: Within 24 hours
Subjective/Interval History
-
Date of Service: August 30, 2024
Objective Data
-
Labs:
Laboratory Results
08/30/24 08/30/24
06:58 08:12
WBC 7.5
Hgb 13.2
Hct 38.4 L
Plt Count 203
Sodium Cancelled 133 L
Potassium Cancelled 4.2
Chloride Cancelled 91 L
Carbon Dioxide Cancelled 37 H
BUN Cancelled 34 H
Creatinine Cancelled 0.6 L
Glucose Cancelled 91
Calcium Cancelled 8.6
Vital Signs:
Vital Signs
Temp Pulse Resp BP Pulse Ox
36.6 C 71 18 156/74 94
08/30/24 08:45 08/30/24 08:45 08/30/24 08:45 08/30/24 08:45 08/30/24 08:45
I&O
08/29/24 08/30/24 08/31/24
06:59 06:59 06:59
Intake Total 1560 / 1560 660 / 660
Output Total 1150 / 1150 250 / 250
Balance 410 / 410 410 / 410
Review of Systems
-
History Source: Patient
All other systems: Reviewed and negative
Physical Exam
-
General: Well Developed, Well Nourished, No Apparent Distress, Comfortable and Conversant
HEENT: Nose Appears Normal and Ears Appear Normal
Respiratory: Clear to Auscultation and Non Labored Respirations; Negative Accessory Resp Muscle Use
Cardiac: Regular Rhythm and S1/S2
GI: Soft, Nontender and Nondistended
Skin: Warm and Dry
Neuro: Awake and Alert
Psych: Calm and Intact Judgement/Insight
Data Reviewed
-
Labs: Labs Reviewed by me
[2024-08-30 13:31] VITALS: BP 130/79; BP 155/70; BP 158/81; PULSE 69; PULSE 72; PULSE 74
--- NOTE | 2024-08-30 13:52 | W.PN.CD ---
Today's Communication / Plan
-
IV diuresis
Impression / Plan
-
Dwrhj-am-caaklww HFpEF:
-Echo 07/30/24: EF 55%. Moderate concentric LV hypertrophy. Biatrial enlargement. Dilated aortic root (4.5 cm) and ascending aorta (4.2 cm). Mild mitral regurgitation. Mild aortic stenosis. Moderate aortic regurgitation. Mild to moderate tricuspid
regurgitation. PASP 40-45 mmHg.
-BNP 3400, was 3300 last month. Weight up 86.4 kg from 83.5 kg at recent d/c.
-cont IV diuresis
Permanent AFIB:
-rate-controlled
-continue metoprolol, continue Eliquis
CAD:
-stable without CP
HTN:
-elevated
-continue BB and ACEI and monitor with diuresis
Subjective: feeling improved still has edemea
Physical Exam
Vital Signs/Labs
Vital Signs
Temp Pulse Resp BP Pulse Ox
97.5 F 71 18 156/74 96
08/30/24 13:31 08/30/24 08:45 08/30/24 13:31 08/30/24 08:45 08/30/24 13:31
08/29/24 08/30/24 08/31/24
06:59 06:59 06:59
Actual Weight 187 lb 12.6 oz 187 lb 6 oz
08/30/24 06:58
08/30/24 08:12
Magnesium 2.2 mg/dl (1.6-2.3) 08/28/24 08:12
08/27/24
20:13
Txy-R-Ynkyqnckaic Pept 3440
LAB Results
08/27/24
20:13
Troponin I < 0.012
Physical Exam
Constitutional: No acute distress
EENT: Anicteric
Cardiovascular: Rhythm/rate is irregular and Pedal edema present
Respiratory: Respiratory effort normal and Lungs clear to auscul.
GI: Soft
Neuro/Psych: AO x 3
Data Reviewed
-
Date of Service: August 30, 2024
EKG: Tracing Personally Visualized and interpreted (af)
Echo: Report Reviewed by me
Labs: Labs Reviewed by me
[2024-08-30 16:12] VITALS: BP 142/74
[2024-08-30 19:21] VITALS: BP 134/57
[2024-08-30 23:21] VITALS: BP 155/78
[2024-08-31] VITALS (7 sets, daily range): BP systolic 106–170; BP diastolic 57–90; PULSE 71–73; O2SAT 95; BMI 25.4
[2024-08-31] MEDS: TYLENOL 650 MG PO ×2 (02:39→21:30)
[2024-08-31 07:51] LABS: Blood Urea Nitrogen 37 mg/dl (9-20); Calcium 8.7 mg/dl (8.4-10.2); Carbon Dioxide 36 mmol/L (22-30); Chloride 91 mmol/L (98-107); Estimated Creatinine Clearance 86 ml/min; Glucose 90 mg/dl (70-99); Potassium 4.1 mmol/L (3.5-5.1); Sodium 133 mmol/L (135-145); eGFR > 60.00
[2024-08-31] MEDS: ZESTRIL 20 MG PO (08:41)
[2024-08-31] MEDS: TEGRETOL 200 MG PO ×3 (08:41→21:29)
[2024-08-31] MEDS: OSCAL CAL 500 500 MG PO (08:41)
[2024-08-31] MEDS: VITAMIN C 500 MG PO (08:41)
[2024-08-31] MEDS: VITAMIN B-12 1000 MCG PO (08:41)
[2024-08-31] MEDS: THERAGRAN 1 TABLET PO (08:41)
[2024-08-31] MEDS: TOPROL XL 25 MG PO (08:41)
[2024-08-31] MEDS: CRESTOR 20 MG PO (08:41)
[2024-08-31] MEDS: ELIQUIS 5 MG PO (08:42)
[2024-08-31] MEDS: LASIX 40 MG IV ×2 (08:42→16:01)
--- NOTE | 2024-08-31 10:10 | PTCARENOTE ---
Pt. had 4.75 second pause while resting in chair, pt. aroused to voice and HR increased into 60s. Dr. Sinclair and Dr. Castro made aware. Will continue to monitor pt.
--- NOTE | 2024-08-31 10:24 | W.PN.HOSP.TC ---
Today's Communication/Plan
-
see A/P
Assessment / Plan
Assessment / Plan
HPI: 84 yo male with sleep disorder, came in with shortness of breath and hypoxia. Likely orthopnea with volume overload.
A/P:
# Acute hypoxic respiratory insufficiency, resolved
# suspect acute on chronic diastolic CHF
Negative covid/flu.
Cont IV lasix 40 mg BID, follow daily weight
cardiology on board
# Mild hyponatremia
Sodium level 133 today
monitor
# Somnolence, resolved
No sz like activity
# paroxysmal AFIB
# cardiac pauses noted on tele
Stop [employer] metoprolol with increasing pauses on tele
Card planning PPM placement 08/31, NPO pMN
Hold Apixaban prior to PPM placement
# h/o seizure
Tegretol level WNL
Cont [employer] SUPER[employer]OR Tegretol
DVT PPX, apixaban on hold prior to PPM
Code status - DNR
PT OT recc HH
DW RN
DW Card
Updated glass embosser Pinky per pt request
total time spent 51 min
Anticipated Discharge: 24 - 48 hours
Subjective/Interval History
-
Date of Service: August 31, 2024
Objective Data
-
Labs:
Laboratory Results
08/31/24
06:43
Sodium 133 L
Potassium 4.1
Chloride 91 L
Carbon Dioxide 36 H
BUN 37 H
Creatinine 0.7
Glucose 90
Calcium 8.7
Vital Signs:
Vital Signs
Temp Pulse Resp BP Pulse Ox
36.6 C 67 18 170/89 98
08/31/24 08:43 08/31/24 08:43 08/31/24 08:43 08/31/24 08:43 08/31/24 08:43
I&O
08/30/24 08/31/24 09/01/24
06:59 06:59 06:59
Intake Total 660 / 660 840 / 840
Output Total 250 / 250
Balance 410 / 410 840 / 840
Review of Systems
-
History Source: Patient
All other systems: Reviewed and negative
Physical Exam
-
General: Well Developed, Well Nourished, No Apparent Distress, Comfortable and Conversant
HEENT: Nose Appears Normal and Ears Appear Normal
Respiratory: Clear to Auscultation and Non Labored Respirations; Negative Accessory Resp Muscle Use
Cardiac: Regular Rhythm and S1/S2
GI: Soft, Nontender and Nondistended
Skin: Warm and Dry
Neuro: Awake and Alert
Psych: Calm and Intact Judgement/Insight
Data Reviewed
-
Labs: Labs Reviewed by me
--- NOTE | 2024-08-31 12:08 | W.PN.CD ---
Today's Communication / Plan
-
NPO after midngiht for PPM
hold eliquis
cont IV diuresis
Impression / Plan
-
Wdfdy-fb-sifwjcu HFpEF:
-Echo 07/30/24: EF 55%. Moderate concentric LV hypertrophy. Biatrial enlargement. Dilated aortic root (4.5 cm) and ascending aorta (4.2 cm). Mild mitral regurgitation. Mild aortic stenosis. Moderate aortic regurgitation. Mild to moderate tricuspid
regurgitation. PASP 40-45 mmHg.
-BNP 3400, was 3300 last month. Weight up 86.4 kg from 83.5 kg at recent d/c.
-cont IV diuresis
Pause of > 4s
- NPO after midnight for PPM
Permanent AFIB:
-rate-controlled
-continue metoprolol, Hold Eliquis in anticipation of PPM
CAD:
-stable without CP
HTN:
-elevated
-continue BB and ACEI and monitor with diuresis
Subjective: feeling improved still has edemea
Physical Exam
Vital Signs/Labs
Vital Signs
Temp Pulse Resp BP Pulse Ox
97.9 F 67 18 170/89 98
08/31/24 08:43 08/31/24 08:43 08/31/24 08:43 08/31/24 08:43 08/31/24 08:43
08/30/24 08/31/24 09/01/24
06:59 06:59 06:59
Actual Weight 187 lb 6 oz 187 lb 2 oz
08/30/24 06:58
08/31/24 06:43
Magnesium 2.0 mg/dl (1.6-2.3) 08/31/24 06:43
08/27/24
20:13
Rye-B-Ulldszryung Pept 3440
Physical Exam
Constitutional: No acute distress and Comfortable
EENT: Anicteric
Cardiovascular: Rhythm/rate is irregular and Pedal edema present
Respiratory: Respiratory effort normal and Lungs clear to auscul.
GI: Soft
Neuro/Psych: Alert and Oriented
Data Reviewed
-
Date of Service: August 31, 2024
EKG: Tracing Personally Visualized and interpreted (af pause of > 4 s)
Echo: Report Reviewed by me
Labs: Labs Reviewed by me
--- NOTE | 2024-08-31 12:35 | CM ---
CM following re: discharge planning.
Reviewed pt's chart, met with pt.
Pt stated he lives with caregiver and she provides all care he needs at home.
A referral to [facility] noted. [facility] liaison following.
D/C plan: home with resumptions of [facility] and caregiver services. caregiver to transport at discharge.
CM will follow with discharge plan updates as hospitalization progresses
[2024-09-01] VITALS (26 sets, daily range): BP systolic 98–167; BP diastolic 51–118; BMI 25.2
--- NOTE | 2024-09-01 08:16 | W.PN.CD ---
Today's Communication / Plan
-
- PPM today - preferably leadless
Impression / Plan
-
Bqnut-kh-dzrurhg HFpEF:
-Echo 07/30/24: EF 55%. Moderate concentric LV hypertrophy. Biatrial enlargement. Dilated aortic root (4.5 cm) and ascending aorta (4.2 cm). Mild mitral regurgitation. Mild aortic stenosis. Moderate aortic regurgitation. Mild to moderate tricuspid
regurgitation. PASP 40-45 mmHg.
-BNP 3400, was 3300 last month. Weight up 86.4 kg from 83.5 kg at recent d/c.
-cont IV diuresis
Asystole
- Pause of > 4s
- Continue to have bradycardia and pauses
- With recurrent syncope, would agree with PPM
- Given permanent AF, will proceed with leadless PPM.
Permanent AFIB:
-rate-controlled
-continue metoprolol, Hold Eliquis in anticipation of PPM
CAD:
-stable without CP
HTN:
-elevated
-continue BB and ACEI and monitor with diuresis
Subjective:
feeling improved still has edema
Physical Exam
Vital Signs/Labs
Vital Signs
Temp Pulse Resp BP Pulse Ox
97.9 F 68 18 161/69 96
09/01/24 08:15 09/01/24 08:15 09/01/24 08:15 09/01/24 08:15 09/01/24 08:15
08/31/24 09/01/24 09/02/24
06:59 06:59 06:59
Actual Weight 84.878 kg 84.096 kg
08/30/24 06:58
Magnesium 2.0 mg/dl (1.6-2.3) 08/31/24 06:43
08/27/24
20:13
Zyf-N-Twpyzazyhbs Pept 3440
Physical Exam
Constitutional: No acute distress and Comfortable
EENT: Anicteric and Moist mucous membranes
Cardiovascular: Rhythm/rate is irregular, Pedal edema present, JVD present and Systolic murmur present
Respiratory: Respiratory effort normal and Crackles Present
GI: Soft, Non tender and Normal bowel sounds
Neuro/Psych: Alert, Oriented and AO x 3
Data Reviewed
-
Date of Service: September 01, 2024
Medical Decision Making: Reviewed Test Results, Test Interpretation and Review of Case with other Provider
EKG: Tracing Personally Visualized and interpreted
Echo: Report Reviewed by me
Labs: Labs Reviewed by me
Old Records: Reviewed
[2024-09-01] MEDS: THERAGRAN 1 TABLET PO (08:19)
[2024-09-01] MEDS: VITAMIN C 500 MG PO (08:19)
[2024-09-01] MEDS: ZESTRIL 20 MG PO (08:19)
[2024-09-01] MEDS: CRESTOR 20 MG PO (08:19)
[2024-09-01] MEDS: OSCAL CAL 500 500 MG PO (08:19)
[2024-09-01] MEDS: FLUSH (NSS) 1 FLUSH IV (08:20)
[2024-09-01] MEDS: TEGRETOL 200 MG PO ×3 (08:20→20:11)
[2024-09-01] MEDS: LASIX 40 MG IV ×2 (08:20→16:16)
[2024-09-01] MEDS: VITAMIN B-12 1000 MCG PO (08:20)
--- NOTE | 2024-09-01 10:15 | ITS.CL.PACE ---
Bridge Mechanic - Pacemaker Implant
Pacemaker Implant
Procedure Report:
Leadless Pacemaker (Micra) Implantation:
Mr. Sage is a very pleasant 84 yr old gentleman with permanent atrial fibrillation, CAD, HFpEF, LVEF of 55%, with NYHA class III symptoms, presented with recurrent syncope and frequent asystole and long pauses and was recommended for a leadless
pacemaker.
Indications: Severe symptomatic bradycardia and permanent atrial fibrillation.
Date of the Procedure:
09/01/2024
Pre-Operative Diagnosis: Severe bradycardia and permanent atrial fibrillation.
Post-Operative Diagnosis: Severe bradycardia and permanent atrial fibrillation.
Procedure Performed: Leadless pacemaker placement
Performing Physician:
Nury Lundberg MD
Anesthesia:
See anesthesia records
Detailed Description of the Procedure:
Written informed consent was obtained from the patient after a full explanation of the risks and benefits of the procedure including the risks of sedation and anesthesia.
The patient was brought to the electrophysiology laboratory in stable condition in fasting state. Continuous electrocardiographic and hemodynamic monitoring was initiated.
The initial rhythm was atrial fibrillation.
The procedure site was meticulously prepared with surgical scrub and allowed to dry with no pooling. Sterile draping was applied to cover the procedure site. The image intensifier was draped with sterile bag and positioned over the patient.
After infusion of local anesthetic, vascular access was obtained under ultrasound guidance and sheaths were placed over guide wire as detailed below.
An 8Fr sheath in right femoral vein was placed and Amplatz Guidewire 0.035 was placed in the superior vena cava. The venous access was gradually dilated from 14-24 Malaysian dilators. Then the 27 Fr Micra outer sheath was successfully and carefully
advanced to the RA.
Leadless Pacemaker (Micra) implantation:
The delivery system of the Micra was prepped with removal of all air underwater and was advanced into the sheath to the RA with continuous saline irrigation. The sheath was pulled back to the IVC and the delivery sheath was advanced into the RV
cavity. The delivery system as placed against the ventricular septum using [place] and [place] fluoroscopic views and the septal approximation was confirmed with contrast injection. Once adequate location was confirmed, the locked sutures were unlocked and
the Micra was slowly advanced pulling back the delivery sheath releasing the anchoring hooks. The Micra was attached successfully to the RV septum.
The threshold was noted to be elevated. Multiple other locations were tested showing no capture. The pacemaker was removed out of the body and the sheath was flushed with a blood clot noted at the tip. The clot was removed and system was flushed and
rinsed before reinserting to the body.
A heparin bolus was given.
The delivery sheath was again introduced into the RV and the septal location was identified with contrast injection.
Once adequate location was confirmed, the locked sutures were unlocked and the Micra was slowly advanced pulling back the delivery sheath releasing the anchoring hooks. The Micra was attached successfully to the RV septum.
The PM was tested and adequate sensing and threshold noted.
Next, the tug test was done with the pulling the attached suture under fluoroscopic guidance with the three anchors securely embedded and showed movement and widening of the anchors with pulling them. The PPM again was tested showing stable
thresholds and excellent sensing.
The one side of the suture was cut and the other side was gradually and carefully pulled until free. The delivery system sheath was pulled back to the IVC and the PPM was again tested showing stable numbers.
Device Information:
Medtronic Leadless (Micra) pacemaker-
����������� Model #: [id number]; Serial Number: [id number] @ RV septum
Reinier parameter settings were VVI 50 bpm. �
Measured data in the Micra was sensing of 7.5mV, impedance of 750 ohms and the threshold of 0.5 V at 0.24ms.
Procedure End
Following the completion of the Micra implant, catheters were removed. The decision was made to also place a �figure of 8� sutures. The sheaths were removed and hemostasis achieved with manual compression.
Estimated Blood loss:
<5 cc
Total contrast used:
12.5 cc
Specimens Removed:
None.
Implants / Devices:
None
Urine output:
None
Packs / Drains/ Tubes:
None
Instrument / Sponge Count Correct:
Yes
Complications of the Procedure:
None
Condition of Patient at Time of Transfer:
Hemodynamically stable with no neurological or vascular compromise.
Summary:
Successful implantation of MRI compatible Medtronic leadless ventricular pacemaker
--- NOTE | 2024-09-01 14:18 | W.PN.HOSP.TC ---
Today's Communication/Plan
-
Recovering from pacer placement. Otherwise stable.
Assessment / Plan
Assessment / Plan
84 yo male with sleep disorder, came in with shortness of breath and hypoxia. Likely orthopnea with volume overload, then found to have bradycardia with pulses.
A/P:
1. Acute hypoxic respiratory insufficiency, resolved
2. suspected acute on chronic diastolic CHF
Negative covid/flu.
Cont lasix, follow daily weight
cardiology following as well.
3. Mild hyponatremia
Sodium level pending for today
monitor
4. Somnolence, resolved
No sz like activity
5. paroxysmal AFIB with cardiac pauses noted on tele
PPM placement today. Recovering well from procedure
6. h/o seizure
Tegretol level WNL
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
DVT PPX, apixaban on hold prior to PPM - resume when OK with cardiology
Code status - DNR
PT OT recc HH
total time spent 51 min
Anticipated Discharge: 24 - 48 hours
Subjective/Interval History
-
Date of Service: September 01, 2024
Feels well after pacemaker placement.
Objective Data
-
Vital Signs:
Vital Signs
Temp Pulse Resp BP Pulse Ox
97.9 F 56 20 131/62 91
09/01/24 08:15 09/01/24 14:15 09/01/24 14:15 09/01/24 13:55 09/01/24 14:15
I&O
08/31/24 09/01/24 09/02/24
06:59 06:59 06:59
Intake Total 840 / 840
Output Total 300 / 300
Balance 840 / 840 -300 / -300
Review of Systems
-
History Source: Patient
All other systems: Reviewed and negative
Physical Exam
-
General: Well Developed, Well Nourished, No Apparent Distress, Comfortable and Conversant
HEENT: Normocephalic, Moist Mucous Membranes, Nose Appears Normal and Ears Appear Normal
Respiratory: Clear to Auscultation
Cardiac: Regular Rhythm and S1/S2
GI: Soft, Nontender and Nondistended
Musculoskeletal: No Clubbing and No Cyanosis
Skin: Warm and Dry
Neuro: Awake and Alert
Psych: Calm
Data Reviewed
-
Labs: Labs Reviewed by me
--- NOTE | 2024-09-01 15:39 | PTCARENOTE ---
Assumed care of pt upon tsf from CCL post Micro pacemaker insertion through right femoral vein. Pt arrives on unit awake and alert, Ox3. VSS, CM shows AF with V-pacing, POX 95% on RA. Right groin site remains CDI pulses palpable in pedals. Pt
denies any pain or discomfort at this time.
[2024-09-01] MEDS: TOPROL XL 50 MG PO (16:15)
--- NOTE | 2024-09-01 17:34 | CM ---
Reviewed chart. Mr. Sage was transferred to IVU. Tried to see Mr. Sage but he was asleep. Prior to admission he resides with a friend Lukas in a two stor y home with two steps to enter. He hasseven steps to get to bedroom/full bathroom. He is
current with [facility]. Medial work-up in progress. The discharge plan is to return home with his friend and resumption of [facility] when medically stable.
[2024-09-01] MEDS: ELIQUIS 5 MG PO (20:11)
[2024-09-01] MEDS: TYLENOL 650 MG PO (20:12)
[2024-09-01] MEDS: NON-FORMULARY ITEM 1 UNIT PO (20:13)
[2024-09-01 21:15] LABS: Blood Urea Nitrogen 36 mg/dl (9-20); Calcium 8.9 mg/dl (8.4-10.2); Carbon Dioxide 37 mmol/L (22-30); Chloride 89 mmol/L (98-107); Estimated Creatinine Clearance 75 ml/min; Glucose 173 mg/dl (70-99); Magnesium 2.1 mg/dl (1.6-2.3); Potassium 3.6 mmol/L (3.5-5.1); Sodium 134 mmol/L (135-145); eGFR > 60.00
[2024-09-01] MEDS: KCL 40 MEQ PO (21:42)
--- NOTE | 2024-09-01 22:05 | PTCARENOTE ---
Received patient at change of shift. Patient awake, in bed, alert and oriented. Right femoral site clean, dry, and intact-- soft, nontender; no hematoma; no ecchymosis. BP 109/55, irregular bradycardia with occasional V-pacing and runs of VTach.
02 added at 2L. Magnesium and Potassium levels drawn per Ed PA Burks. Order placed for STAT potassium-- see MAR.
Patient has no complaints of SOB or palpitations at this time. Discussed plan of care. Patient verbalized understanding and agreed to call RN when needing to get up. Call sykes within reach.
[2024-09-02] VITALS (13 sets, daily range): BP systolic 76–146; BP diastolic 44–69; PULSE 54; BMI 24.7
[2024-09-02 02:58] LABS: Hematocrit 39.2 % (39.0-52.0); Hemoglobin 13.3 g/dL (13.0-18.0); Mean Corp Hgb Conc. 33.9 g/dL (33.0-37.0); Mean Corpuscular Hgb 31.3 pg (27.0-31.0); Mean Corpuscular Volume 92.2 fL (80.0-94.0); Platelet Count 229 10^3/uL (130-400); Red Blood Cell Count 4.25 10^6/uL (4.70-6.10); White Blood Cell Count 9.2 10^3/uL (4.8-10.8)
[2024-09-02 03:11] LABS: Blood Urea Nitrogen 38 mg/dl (9-20); Carbon Dioxide 36 mmol/L (22-30); Chloride 92 mmol/L (98-107); Estimated Creatinine Clearance 75 ml/min; Glucose 90 mg/dl (70-99); Potassium 4.3 mmol/L (3.5-5.1); Sodium 135 mmol/L (135-145); eGFR > 60.00
--- NOTE | 2024-09-02 07:41 | W.PN.CD ---
Today's Communication / Plan
-
- Hold Lisinopril
- Continue Metoporlol, and lasix
- Increase VVi pacing rate.
Impression / Plan
-
[id number] HFpEF:
-Echo 07/30/24: EF 55%. Moderate concentric LV hypertrophy. Biatrial enlargement. Dilated aortic root (4.5 cm) and ascending aorta (4.2 cm). Mild mitral regurgitation. Mild aortic stenosis. Moderate aortic regurgitation. Mild to moderate tricuspid
regurgitation. PASP 40-45 mmHg.
-BNP 3400, was 3300 last month. Weight up 86.4 kg from 83.5 kg at recent d/c.
-cont IV diuresis
-Will CHF, will increase the PPM rate to improve perfusion.
Hypotension
-Likely due to bradycardia
- PPM is set for 50 bpm
- Metoprolol restarted - also on Lisinopril and IV lasix
- Will hold Lisinopril now
- Increase pacing rate.
Asystole
- Pause of > 4s
- Continue to have bradycardia and pauses
- s/p leadless PPM 09/01/24
- Interrogate and increase pacing rate
Permanent AFIB:
-rate-controlled
-continue metoprolol, Hold Eliquis in anticipation of PPM
CAD:
-stable without CP
HTN:
-elevated
-continue BB and ACEI and monitor with diuresis
Subjective:
feeling improved still has edema. JVD. Blood pressure dropped this afternoon.
Physical Exam
Vital Signs/Labs
Vital Signs
Temp Pulse Resp BP Pulse Ox
97.7 F 50 14 146/59 96
09/02/24 02:17 09/02/24 03:45 09/02/24 02:17 09/02/24 02:10 09/02/24 02:17
1209/02/24 09/03/24
06:59 06:59 06:59
Actual Weight 84.096 kg
09/02/24 02:33
09/02/24 02:33
Magnesium 2.1 mg/dl (1.6-2.3) 09/01/24 20:52
08/27/24
20:13
Tts-D-Pimamrltzuq Pept 3440
Physical Exam
Constitutional: No acute distress and Comfortable
EENT: Anicteric and Moist mucous membranes
Cardiovascular: Rhythm & rate is regular (paced at 50 bpm), JVD present and Systolic murmur present
Respiratory: Respiratory effort normal and Crackles Present
GI: Soft, Non tender and Normal bowel sounds
Neuro/Psych: Alert and Oriented
Other: Cath Site
Data Reviewed
-
Date of Service: September 02, 2024
Medical Decision Making: Reviewed Test Results, Test Interpretation and Review of Case with other Provider
EKG: Tracing Personally Visualized and interpreted
X-Ray/CT/US/MRI/NUC/PET: Image Personally Visualized and interpreted
Labs: Labs Reviewed by me
Old Records: Reviewed
Critical Care Time (in minutes): 35
--- NOTE | 2024-09-02 08:00 | PTCARENOTE ---
Assumed care of pt from prev nsg shift; Pt AAOX3 w/no c/o CP, but pt is visibly dyspneic at rest & on exertion. Pt's RA O2 sats 94% & pt declining wearing O2. Pt had O2 on overnight during episodes of VT on site monitor. Pt's VS stable this AM
w/HR in the 50's & BP this AM 146/63. Pt is V-paced w/underlying Afib & freq PVC's on telemetry monitoring. Pt assisted OOB to for breakfast. Plan of care discussed w/pt & pt verbalized his understanding. Call sykes within reach & no addtl needs
at this time.
[2024-09-02] MEDS: THERAGRAN 1 TABLET PO (09:25)
[2024-09-02] MEDS: VITAMIN C 500 MG PO (09:26)
[2024-09-02] MEDS: TOPROL XL 50 MG PO (09:26)
[2024-09-02] MEDS: ELIQUIS 5 MG PO ×2 (09:26→19:37)
[2024-09-02] MEDS: ZESTRIL 20 MG PO (09:26)
[2024-09-02] MEDS: CRESTOR 20 MG PO (09:26)
[2024-09-02] MEDS: LASIX 40 MG IV ×2 (09:27→17:21)
[2024-09-02] MEDS: TEGRETOL 200 MG PO ×3 (09:27→22:32)
[2024-09-02] MEDS: VITAMIN B-12 1000 MCG PO (09:27)
[2024-09-02] MEDS: FLUSH (NSS) 2 FLUSH IV ×2 (09:27→17:21)
[2024-09-02] MEDS: OSCAL CAL 500 500 MG PO (09:27)
--- NOTE | 2024-09-02 12:23 | PTCARENOTE ---
This RN in to see pt to midday VS: Pt OOB to & reports 'feeling very tired & weak'; Assisted pt back to bed & checked VS. Pt's HR in the 50's & BP 76/57, immediate recheck was 86/44. O2 sats 94% on RA, but pt visibly dyspneic, so O2 2L via NC
placed back on pt. O2 sats 97% on O2. This RN notified, Hospitalist & Section Leader. Dr Lundberg in to see pt & pt's new PPM rate adjusted to HR 60. Advised pt to remain in bed at this time. Call sykes within reach.
--- NOTE | 2024-09-02 13:10 | W.CARD.DEVCH ---
Cardiac Device Check
-
Device: Pacemaker
Jukebox Coin Collector: Medtronic
The patient's device was interrogated personally. The device had normal function. No abnormalities seen.
The leadless micrea was reprogrammed from VVI 50 to VVIR 60 bpm.
--- NOTE | 2024-09-02 14:30 | W.PN.HOSP.TC ---
Today's Communication/Plan
-
Ok to be discharged when otherwise appropriate for a pacer placement surgery.
Otherwise stable.
Assessment / Plan
Assessment / Plan
84 yo male with sleep disorder, came in with shortness of breath and hypoxia. Likely orthopnea with volume overload, then found to have bradycardia with pauses.
A/P:
1. Acute hypoxic respiratory insufficiency, resolved
2. suspected acute on chronic diastolic CHF
Negative covid/flu.
Cont lasix, follow daily weight
Initial weight 89.8 kilos, now 82.7 kilos
Likely at dry weight
cardiology following as well.
3. Mild hyponatremia - resolved
monitor
4. Somnolence, resolved
No sz like activity
5. paroxysmal AFIB with cardiac pauses noted on tele
PPM placement. Recovering well from procedure
6. h/o seizure
Tegretol level WNL
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
DVT PPX, apixaban on hold because of PPM - resume when OK with cardiology
Code status - DNR
PT OT recc HH
total time spent 40 min
Anticipated Discharge: 24 - 48 hours
Subjective/Interval History
-
Date of Service: September 02, 2024
Recovering from pacer procedure. No new issues.
Objective Data
-
Labs:
Laboratory Results
09/02/24
02:33
WBC 9.2
Hgb 13.3
Hct 39.2
Plt Count 229
Sodium 135
Potassium 4.3
Chloride 92 L
Carbon Dioxide 36 H
BUN 38 H
Creatinine 0.8
Glucose 90
Calcium 9.0
Vital Signs:
Vital Signs
Temp Pulse Resp BP Pulse Ox
97.5 F 61 24 109/59 94
09/02/24 12:04 09/02/24 13:00 09/02/24 12:04 09/02/24 13:00 09/02/24 12:04
I&O
09/01/24 09/02/24 09/03/24
06:59 06:59 06:59
Output Total 900 / 900
Balance -900 / -900
Review of Systems
-
History Source: Patient
All other systems: Reviewed and negative
Physical Exam
-
General: Well Developed, Well Nourished, No Apparent Distress and Comfortable
HEENT: Normocephalic, Nose Appears Normal and Ears Appear Normal
Respiratory: Clear to Auscultation
Cardiac: Regular Rhythm and S1/S2
GI: Soft, Nontender and Nondistended
Musculoskeletal: No Clubbing and No Cyanosis
Skin: Warm and Dry
Neuro: Awake, Alert and Oriented
Psych: Calm
Data Reviewed
-
Labs: Labs Reviewed by me
--- NOTE | 2024-09-02 15:20 | PN.CDI ---
CDI
- -
CDI:
Physician Documentation Request
Admit Date: 08/27/24 23:30
Dear Doctor Kushal,
Please review the following and provide your response in the progress notes.
Clinical Indicators:
- per Cardiology 'Permanent AFIB'
- per Hospitalists 'paroxysmal AFIB'
- 09/01 Leadless pacemaker implantation
If possible, please provide further specificity regarding atrial fibrillation, such as:
Paroxysmal atrial fibrillation - terminates spontaneously or with intervention within 7 days of onset
Persistent atrial fibrillation - episodes of continuous AF that last more than 7 days and do not self-terminate
Permanent atrial fibrillation - when a decision has been made to accept the presence of AF and there is no further attempt to restore or maintain sinus rhythm
Other - please specify
Use of terms such as suspected, likely, concern for, or probable (associated with a specific diagnosis that is being evaluated, monitored, or treated as if it exists) are acceptable and can be coded in the inpatient setting, when documented at the
time of discharge.
Thank you,
Karl Graves RN
CDI Specialist
Please use your independent medical judgment in providing your response.
--- NOTE | 2024-09-02 15:45 | CM ---
Reviewed chart. Met with Mr. Sage to review discharge plans. He states he is feeling okay. He states he has a caregiver Pinky that resides with him. He states prior to admission he resides in a two sto ry home with htree steps to enter. He states
he has a full flight of steps to get to bedroom/full bathroom. He states he ambulates with a walker. He ambualted 75 feet with a rolling walker and supervision. He states he was current with [facility] for nursing and therapy. Referral already
made to [facility] Intake. He states he has been in [facility] in the past. He states he currently does not want to go to SNF/Rehab. Medical work-up in progress. The discharge plan is to return home with his acute care nurse practitioner and resumption of
[facility] when medically stable.
[2024-09-03] VITALS (8 sets, daily range): BP systolic 87–133; BP diastolic 53–65; BMI 24.9
--- NOTE | 2024-09-03 01:59 | PTCARENOTE ---
Tele remains occasionally Vpaced w/ underlining Afib & BBBC. HR in the 60s at rest. Right groin dressing C/D/I. Patient ambulates w/ standby assist and uses RW, and c/o HE. Pulse ox sating 94-95% RA. Denies any pain. Aware of POC, call sykes
within reach.
--- NOTE | 2024-09-03 08:05 | PTCARENOTE ---
Assumed care of pt from prev nsg shift; Pt drowsy but easily arousable. AAOX3 w/no c/o CP, but pt appears less dyspneic on exertion than this RN's prev day's assessment. Pt's RA O2 sats 97%. Pt's VS stable this AM w/HR in the 70's & BP this AM
130/64. Pt is V-paced w/underlying Afib on telemetry monitoring. Pt assisted w/perineal care & sitting on the side of bed for breakfast. Pt declined getting OOB to 'for now'. Plan of care discussed w/pt & pt verbalized his understanding. Call
sykes within reach & no addtl needs at this time.
[2024-09-03] MEDS: VITAMIN B-12 1000 MCG PO (10:13)
[2024-09-03] MEDS: TOPROL XL 50 MG PO (10:13)
[2024-09-03] MEDS: OSCAL CAL 500 500 MG PO (10:13)
[2024-09-03] MEDS: THERAGRAN 1 TABLET PO (10:13)
[2024-09-03] MEDS: CRESTOR 20 MG PO (10:13)
[2024-09-03] MEDS: LASIX 40 MG IV (10:13)
[2024-09-03] MEDS: ELIQUIS 5 MG PO ×2 (10:13→19:27)
[2024-09-03] MEDS: TEGRETOL 200 MG PO ×3 (10:13→22:22)
[2024-09-03] MEDS: FLUSH (NSS) 2 FLUSH IV (10:14)
[2024-09-03] MEDS: VITAMIN C 500 MG PO (10:14)
--- NOTE | 2024-09-03 10:45 | W.PN.CD ---
Today's Communication / Plan
-
stop IV diuresis.
Start p.o. Lasix 40 mg daily tomorrow.
ok to Discharge from cardiovascular perspective.
I will see again at your request.
Impression / Plan
-
Primary Cardiology: Dr Moreno
Raelu-[id number] HFpEF:
-Echo 07/30/24: EF 55%. Moderate concentric LV hypertrophy. Biatrial enlargement. Dilated aortic root (4.5 cm) and ascending aorta (4.2 cm). Mild mitral regurgitation. Mild aortic stenosis. Moderate aortic regurgitation. Mild to moderate tricuspid
regurgitation. PASP 40-45 mmHg.
-BNP 3400, was 3300 last month. Weight up 86.4 kg from 83.5 kg at recent d/c-- now 83.1kg
-Transition to p.o. Lasix 40 mg daily
.
Hypotension
-Likely due to bradycardia, improved off ACEI and with reprogramming of ppm.
-would continue to hold ACEI can be readded as an op
Asystole
- Pause of > 4s
- Continue to have bradycardia and pauses
- s/p leadless PPM 09/01/24---> reprogrammed 09/02/24 from VVI 50 to VVIR 60 bpm.
-Working nicely on telemetry
Permanent AFIB:
-rate-controlled
-continue metoprolol and Eliquis
CAD:
-stable without CP
HTN:
Transiently low, resolved. Will resume as outpatient.
Subjective:
feeling improved, does not want to be on IV Lasix anymore. Ambulated the halls yesterday.
Physical Exam
Vital Signs/Labs
Vital Signs
Temp Pulse Resp BP Pulse Ox
97.4 F 61 18 130/64 97
09/03/24 07:19 09/03/24 08:00 09/03/24 07:19 09/03/24 07:22 09/03/24 07:19
09/02/24 09/03/24 09/04/24
06:59 06:59 06:59
Actual Weight 83.1 kg
09/02/24 02:33
09/02/24 02:33
Magnesium 2.1 mg/dl (1.6-2.3) 09/01/24 20:52
08/27/24
20:13
Iqj-B-Vkdfpsnsvjg Pept 3440
Physical Exam
Constitutional: No acute distress
Cardiovascular: Rhythm & rate is regular and Pedal edema present (Left leg 1+ always greater than right leg which is trace)
Respiratory: Respiratory effort normal, Lungs clear to auscul., Wheeze Absent, Crackles Absent and Rhonchi Absent
Neuro/Psych: AO x 3
Data Reviewed
-
Date of Service: September 03, 2024
EKG: Other (Telemetry, pacing in the 60s)
Echo: Other
--- NOTE | 2024-09-03 12:34 | W.PN.HOSP.TC ---
Today's Communication/Plan
-
Ordered xrays of abdomen for new abd discomfort. Otherwise doing well.
Assessment / Plan
Assessment / Plan
84 yo male with sleep disorder, came in with shortness of breath and hypoxia. Likely orthopnea with volume overload, then found to have bradycardia with pauses.
A/P:
1. Acute hypoxic respiratory insufficiency, resolved
2. suspected acute on chronic diastolic CHF
Negative covid/flu.
Cont lasix, follow daily weight
Initial weight 89.8 kilos, now 82.7 kilos
Likely at dry weight
cardiology following as well.
3. Mild hyponatremia - resolved
monitor
4. Somnolence, resolved
No sz like activity
5. paroxysmal AFIB with cardiac pauses noted on tele
PPM placement. Recovering well from procedure
6. h/o seizure
Tegretol level WNL
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
7. Abd pain with eating. New issue
Wicll check abd XR.
Dispo: Appears to be stabilizing. If no abd problem identified, likely OK to go home tomorrow.
DVT PPX, apixaban on hold because of PPM - resume when OK with cardiology
Code status - DNR
PT OT recc HH
total time spent 40 min
Anticipated Discharge: Within 24 hours
Subjective/Interval History
-
Date of Service: September 03, 2024
Feels abdominal discomfort every time that he eats. Had BM yesterday.
Objective Data
-
Vital Signs:
Vital Signs
Temp Pulse Resp BP Pulse Ox
97.4 F 60 18 130/64 97
09/03/24 07:19 09/03/24 12:00 09/03/24 07:19 09/03/24 07:22 09/03/24 07:19
I&O
09/02/24 09/03/24 09/04/24
06:59 06:59 06:59
Intake Total 720 / 720 480 / 480
Output Total 900 / 900
Balance -900 / -900 720 / 720 480 / 480
Review of Systems
-
History Source: Patient
All other systems: Reviewed and negative
Physical Exam
-
General: Well Developed, Well Nourished, No Apparent Distress and Comfortable
HEENT: Nose Appears Normal and Ears Appear Normal
Respiratory: Clear to Auscultation
Cardiac: Regular Rhythm and S1/S2
GI: Soft
Musculoskeletal: No Clubbing and No Cyanosis
Skin: Warm and Dry
Neuro: Awake, Alert and Oriented
Psych: Calm
Data Reviewed
-
Labs: Labs Reviewed by me
[2024-09-03] MEDS: TYLENOL 650 MG PO (19:27)
[2024-09-03] MEDS: COLACE 100 MG PO (22:22)
--- NOTE | 2024-09-03 22:38 | PTCARENOTE ---
Tele remains Vpaced w/ underlying Afib & BBBC. VSS, and sating 92-93% RA. Lungs clear throughout, and pt HE at times when ambulating to bathroom. Patient incontinent of urine at times, wears own depends. Abdomen round and soft upon palpation w/ +
bowel sounds throughout. Patient reports having a BM on the previous shift post abd xray. No new complaints at this time. POC ongoing, call sykes within reach.
[2024-09-04] VITALS (9 sets, daily range): BP systolic 105–140; BP diastolic 49–71; PULSE 67; BMI 24.7
[2024-09-04] MEDS: TYLENOL 650 MG PO ×2 (02:45→21:04)
[2024-09-04 02:55] LABS: Hematocrit 36.2 % (39.0-52.0); Hemoglobin 12.3 g/dL (13.0-18.0); Mean Corpuscular Hgb 31.1 pg (27.0-31.0); Mean Corpuscular Volume 91.6 fL (80.0-94.0); Mean Platelet Volume 10.2 fL (7.4-10.4); Platelet Count 209 10^3/uL (130-400); Red Blood Cell Count 3.95 10^6/uL (4.70-6.10); Red Cell Dist. Width 13.8 % (11.5-14.5); White Blood Cell Count 8.1 10^3/uL (4.8-10.8)
[2024-09-04 03:15] LABS: Blood Urea Nitrogen 41 mg/dl (9-20); Calcium 8.6 mg/dl (8.4-10.2); Carbon Dioxide 32 mmol/L (22-30); Estimated Creatinine Clearance 101 ml/min; Glucose 100 mg/dl (70-99); Potassium 4.1 mmol/L (3.5-5.1); Sodium 135 mmol/L (135-145); eGFR > 60.00
[2024-09-04 03:21] LABS: Chloride 95 mmol/L (98-107)
[2024-09-04] MEDS: CRESTOR 20 MG PO (09:28)
[2024-09-04] MEDS: TEGRETOL 200 MG PO ×3 (09:28→21:05)
[2024-09-04] MEDS: OSCAL CAL 500 500 MG PO (09:28)
[2024-09-04] MEDS: TOPROL XL 50 MG PO (09:29)
[2024-09-04] MEDS: VITAMIN C 500 MG PO (09:29)
[2024-09-04] MEDS: ELIQUIS 5 MG PO ×2 (09:29→21:04)
[2024-09-04] MEDS: THERAGRAN 1 TABLET PO (09:29)
[2024-09-04] MEDS: VITAMIN B-12 1000 MCG PO (09:30)
[2024-09-04] MEDS: COLACE 100 MG PO ×2 (09:30→21:05)
[2024-09-04] MEDS: LASIX 40 MG PO (09:30)
--- NOTE | 2024-09-04 11:46 | CM ---
Reviewed chart. Met with Mr. Sage to review discharge plans. He states he is feeling about the some. He states he may go home soon. Prior to admission he resides in a two story home with three steps to enter. He states he has a full flight of steps
to get to bedroom/full bathroom. He states prior to admission he ambulates with a walker. He states he has a caregiver the resides in the home. He has a walker at home. He ambulated 80 feet x 2 with supervision today. He is current with
[facility] and he is agreeable to resume services with them. Medical work-up in progress. The discharge plan is to return home with his caregiver and resumption of [facility] when medically stable.
--- NOTE | 2024-09-04 14:31 | W.PN.HOSP.TC ---
Today's Communication/Plan
-
Patient can go home today with home health nurse
Assessment / Plan
Assessment / Plan
84 yo male with sleep disorder, came in with shortness of breath and hypoxia. Likely orthopnea with volume overload, then found to have bradycardia with pauses.
A/P:
1. Acute hypoxic respiratory insufficiency, resolved
2. suspected acute on chronic diastolic CHF
Negative covid/flu.
Cont lasix, follow daily weight
Initial weight 89.8 kilos, now 82.7 kilos
Likely at dry weight
cardiology following as well.
3. Mild hyponatremia - resolved
monitor
4. Somnolence, resolved
No sz like activity
5. paroxysmal AFIB with cardiac pauses noted on tele
PPM placement. Recovering well from procedure
Continue metoprolol/Eliquis
6. h/o seizure
Tegretol level WNL
Cont PAINTER ORDNANCE Tegretol
7. Abd pain with eating. New issue
Wicll check abd XR.
Dispo: Appears to be stabilizing. If no abd problem identified, likely OK to go home tomorrow.
CODE STATUS: DNR
DVT prophylaxis: Eliquis
Diet: Cardiac diet
Anticipated Discharge: Today
Subjective/Interval History
-
Date of Service: September 04, 2024
Patient seen and examined at bedside, denies any chest pain or shortness of breath, still complaining of abdominal pain when eating, had bowel movement yesterday.
Will order pantoprazole.
Objective Data
-
Labs:
Laboratory Results
09/04/24
02:34
WBC 8.1
Hgb 12.3 L
Hct 36.2 L
Plt Count 209
Sodium 135
Potassium 4.1
Chloride 95 L
Carbon Dioxide 32 H
BUN 41 H
Creatinine 0.6 L
Glucose 100 H
Calcium 8.6
Vital Signs:
Vital Signs
Temp Pulse Resp BP Pulse Ox
97.5 F 63 18 138/71 92
09/04/24 11:21 09/04/24 09:29 09/04/24 11:21 09/04/24 09:29 09/04/24 11:21
I&O
09/03/24 09/04/24 09/05/24
06:59 06:59 06:59
Intake Total 720 / 720 600 / 600
Output Total 275 / 275
Balance 720 / 720 325 / 325
Physical Exam
-
General: Well Developed, Well Nourished, No Apparent Distress and Comfortable
HEENT: Normocephalic, Atraumatic, Moist Mucous Membranes, No Ptosis, PERRLA and Nose Appears Normal
Respiratory: Clear to Auscultation and Non Labored Respirations
Cardiac: Regular Rhythm and S1/S2
Breast: Deferred by me
GI: Soft, Nontender, Nondistended and Normal Bowel Sounds
Genito-urinary: No Costovertebral Tender
Musculoskeletal: No Clubbing, No Cyanosis and No Edema
Skin: Warm
Neuro: Awake, Alert, Oriented, AO x 3 and No Motor Deficits
Psych: Calm
[2024-09-04] MEDS: NON-FORMULARY ITEM 1 UNIT PO (21:05)
[2024-09-05] MEDS: TYLENOL 650 MG PO (01:52)
--- NOTE | 2024-09-05 02:58 | PTCARENOTE ---
Assumed care of the pt @ 1900. AAOx3 up sitting in the chair. V paced on the monitor VSS. Pt requested Tylenol for mild arm pain. Pt back to bed at 2100 call sykes within reach
[2024-09-05 03:49] VITALS: BP 105/53
[2024-09-05 07:02] VITALS: BP 124/62
--- NOTE | 2024-09-05 08:00 | PTCARENOTE ---
Assumed care at 0700. Patient siting on side of bed eating. VSS, call sykes in reach
[2024-09-05] MEDS: OSCAL CAL 500 500 MG PO (08:29)
[2024-09-05] MEDS: VITAMIN C 500 MG PO (08:29)
[2024-09-05] MEDS: ELIQUIS 5 MG PO (08:29)
[2024-09-05] MEDS: COLACE 100 MG PO (08:29)
[2024-09-05] MEDS: THERAGRAN 1 TABLET PO (08:29)
[2024-09-05] MEDS: TEGRETOL 200 MG PO (08:29)
[2024-09-05] MEDS: LASIX 40 MG PO (08:29)
[2024-09-05] MEDS: TOPROL XL 50 MG PO (08:29)
[2024-09-05] MEDS: CRESTOR 20 MG PO (08:29)
[2024-09-05] MEDS: VITAMIN B-12 1000 MCG PO (08:29)
--- NOTE | 2024-09-05 10:22 | W.HF.CON ---
Heart Failure
- LV Function
Left ventricular function study result: LV Ejection fraction >/= 50%
Ejection Fraction Percentage: 55
- ARNI
Patient already on ARNI: No
Heart Failure ARNI Not Indicated: LV Ejection Fraction >/= 40%
- ACEI/ARB
Patient already on ACEI/ARB: No
Heart Failure ACEI/ARB Not Indicated: LV Ejection Fraction > 40%
- Beta Karmen
Patient already on Evidence Based Beta Karmen: Yes
- Mineralocorticord Receptor Antagonist
Patient already on MRA: No
Heart Failure MRA Not Indicated: LV Ejection Fraction > 40%
- SGLT-2 Inhibitor
Patient already on SGLT-2 Inhibitor: No
Heart Failure SGLT-2 Inhibitor Not Indicated: LV Ejection Fraction >40%
- Afib Anticoagulation
Patient already on Anticoagulation for Afib: Yes
- NYHA CHF Classification
NYHA CHF Classification Level: Class III - Symptoms w/ min exertion, interferes w/ nml daily activity
- ACC/AHA Stage
ACC/AHA Stage: Stage C: Symptomatic Heart Failure
[2024-09-05 11:25] VITALS: BP 126/70
--- NOTE | 2024-09-05 11:51 | W.PN.HOSP.TC ---
Today's Communication/Plan
-
Discharge home today
Assessment / Plan
Assessment / Plan
84 yo male with sleep disorder, came in with shortness of breath and hypoxia. Likely orthopnea with volume overload, then found to have bradycardia with pauses.
A/P:
1. Acute hypoxic respiratory insufficiency, resolved
2. suspected acute on chronic diastolic CHF
Negative covid/flu.
Cont lasix, follow daily weight
Initial weight 89.8 kilos, now 82.7 kilos
Likely at dry weight
cardiology following as well.
3. Mild hyponatremia - resolved
monitor
4. Somnolence, resolved
No sz like activity
5. paroxysmal AFIB with cardiac pauses noted on tele
PPM placement. Recovering well from procedure
Continue metoprolol/Eliquis
6. h/o seizure
Tegretol level WNL
Cont GOLD LEAF ROLLER Tegretol
7. Abd pain with eating. Improved
Dispo: Discharge home
CODE STATUS: DNR
DVT prophylaxis: Eliquis
Diet: Cardiac diet
Anticipated Discharge: Today
Subjective/Interval History
-
Date of Service: September 05, 2024
Patient seen and examined at bedside, denies any chest pain or shortness of breath, no abdominal pain, no nausea, no vomiting, no diarrhea or constipation., plan to discharge home today
Objective Data
-
Vital Signs:
Vital Signs
Temp Pulse Resp BP Pulse Ox
97.5 F 63 18 124/62 99
09/05/24 11:22 09/05/24 08:00 09/05/24 11:22 09/05/24 07:02 09/05/24 11:22
I&O
09/04/24 09/05/24 09/06/24
06:59 06:59 06:59
Intake Total 600 / 600
Output Total 275 / 275
Balance 325 / 325
Physical Exam
-
General: Well Developed, Well Nourished, No Apparent Distress and Comfortable
HEENT: Normocephalic, Atraumatic, Moist Mucous Membranes, No Ptosis, PERRLA and Nose Appears Normal
Respiratory: Clear to Auscultation and Non Labored Respirations
Cardiac: Regular Rhythm and S1/S2
Breast: Deferred by me
GI: Soft, Nontender, Nondistended and Normal Bowel Sounds
Genito-urinary: No Costovertebral Tender
Musculoskeletal: No Clubbing, No Cyanosis and No Edema
Skin: Warm
Neuro: Awake, Alert, Oriented, AO x 3 and No Motor Deficits
Psych: Calm
--- NOTE | 2024-09-05 11:52 | W.DCSUMMARY ---
Discharge Summary
Discharge Data
Date of Admission: 08/27/24
Date of Discharge: 09/05/24
-
Pending Results: No
Hospital Course
84 yo male with sleep disorder, came in with shortness of breath and hypoxia. Likely orthopnea with volume overload, then found to have bradycardia with pauses.
A/P:
1. Acute hypoxic respiratory insufficiency, resolved
2. suspected acute on chronic diastolic CHF
Negative covid/flu.
Cont lasix, follow daily weight
Initial weight 89.8 kilos, now 82.7 kilos
Likely at dry weight
cardiology following as well.
3. Mild hyponatremia - resolved
monitor
4. Somnolence, resolved
No sz like activity
5. paroxysmal AFIB with cardiac pauses noted on tele
PPM placement. Recovering well from procedure
Continue metoprolol/Eliquis
6. h/o seizure
Tegretol level WNL
Cont FEATHER TRIMMER Tegretol
7. Abd pain with eating. Improved
Dispo: Discharge home
CODE STATUS: DNR
DVT prophylaxis: Eliquis
Diet: Cardiac diet
Anticipated Discharge: Today
Discharge Plan
-
Patient Disposition: Home with Home Care
Discharge Diagnosis/Procedures: Acute on chronic heart failure;
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
Condition: Fair
Diet: As tolerated and Restrict fluids to 48 oz
Activity: As tolerated
Driving Restrictions: No driving for 24 hours
Instructions: *CBC Heart Failure Instructions
Stand Alone Forms: DC Instructions- Cath/EP Lab
Referrals:
[facility] [Outside]
Wandy Gutierrez CRNP [Specified Professional Personl] - 09/23/24 10:40 am (Cardiology followup appointment)
Rut Chaudhry MD [Family Provider] - in less than 1 week
Prescriptions:
New
docusate sodium 100 mg Capsule
100 mg PO BID Qty: 30 0RF
Continued
cyanocobalamin (vitamin B-12) 1,000 MCG tablet
1,000 mcg PO DAILY
ascorbic acid (vitamin C) [Vitamin C] 500 MG tablet
500 mg PO DAILY
Eliquis 5 MG tablet
5 mg PO BID
carbamazepine 200 MG tablet
200 mg PO TID
multivitamin Tablet
1 tab PO DAILY
metoprolol succinate 50 mg tablet extended release 24 hr
50 mg PO DAILY
acetaminophen 500 mg Tablet
500 mg PO Q4HPRN PRN (Reason: mild pain)
calcium carbonate 500 mg calcium (1,250 mg) Tablet
500 mg PO DAILY
nitroglycerin 0.4 mg tablet, sublingual
0.4 mg sublingual [id number] PRN (Reason: chest pain)
rosuvastatin 20 mg tablet
20 mg PO DAILY
furosemide 40 mg Tablet
40 mg PO DAILY Qty: 30 0RF
cabergoline 0.5 mg
See Rx Instructions .ROUTE .COMPLEX
Rx Instructions:
2 tab orally on Sunday and at bedtime.
Discontinued
lisinopril 20 mg tablet
20 mg PO DAILY
doxycycline hyclate 100 mg Capsule
100 mg PO Q12 Qty: 6 0RF
cefpodoxime 200 mg tablet
200 mg PO Q12H Qty: 6 0RF
Discharge Orders:
Discharge Patient (As Directed); Ordered 09/04/24
Ordered By: Sheila Cruz
Care Plan Goals
Care Plan Goals:
Problem: Readiness for enhanced knowledge related to diagnosis and treatment plan
Goal: Understand your diagnosis and treatment plan needs, including medications if applicable.
Instructions: Know your diagnosis, underlying causes and treatment plan options, including medications if applicable. Consult with your health care team to learn about your diagnosis and treatment plan, including medications if applicable.
Discharge Date and Time
Print Language: PERSIAN
--- NOTE | 2024-09-05 12:09 | PTCARENOTE ---
Discharge teaching completed with patient. He verbalized understanding. IV and telemetry removed. Patient waiting for his ride home
== END 2024-09-05 12:26 | disposition home health service (06) | DRG 228 ==
LOC: IVU 23:30
PROVIDERS: Emergency Medicine; Internal Medicine; Internal Medicine Cardiovascular Disease; Nurse Practitioner; Nurse Practitioner Family; ADMITTING PHYSICIAN Internal Medicine; ATTENDING PHYSICIAN General Practice; EMERGENCY PHYSICIAN Student in an Organized Health Care Education/Training Program; FAMILY PHYSICIAN Family Medicine; OTHER PHYSICIAN Internal Medicine
PROC: 02HK3NZ Insertion of Intracardiac Pacemaker into Right Ventricle, Percutaneous Approach (ICD-10-PCS; 2024-09-01)
DX: I11.0 Hypertensive heart disease with heart failure (principal); Z00.6 Encounter for examination for normal comparison and control in clinical research program; I50.33 Acute on chronic diastolic (congestive) heart failure; E87.1 Hypo-osmolality and hyponatremia; I25.10 Atherosclerotic heart disease of native coronary artery without angina pectoris; Z66 Do not resuscitate; E78.00 Pure hypercholesterolemia, unspecified; I48.0 Paroxysmal atrial fibrillation; G40.909 Epilepsy, unspecified, not intractable, without status epilepticus; G47.9 Sleep disorder, unspecified; R10.9 Unspecified abdominal pain; D35.2 Benign neoplasm of pituitary gland; R00.1 Bradycardia, unspecified; R40.0 Somnolence; Z11.52 Encounter for screening for COVID-19; Z79.01 Long term (current) use of anticoagulants; Z79.899 Other long term (current) drug therapy; Z95.1 Presence of aortocoronary bypass graft
CPT/HCPCS: 33274; 71045; 71046; 73610; 74022; 80048; 80053; 80156; 82805; 83735; 83880; 84100; 84145; 84443; 84484; 85025; 85027; 87502; 87811; 93005; 96374; 97116; 97162; 97166; 97530; 99285; C1769; C1786; C1894; Q9967

== ENCOUNTER 2024-10-13 21:37 | Inpatient (IN) | payer MEDICARE, BC, SELFPAY ==
[2024-10-13 17:30] VITALS: BP 125/71
[2024-10-13 19:28] VITALS: BMI 26.2
[2024-10-13 19:36] VITALS: BP 148/83
[2024-10-13 20:00] VITALS: BP 177/84
--- NOTE | 2024-10-13 20:01 | ED.GENMED ---
History of Present Illness
General
Chief Complaint: Abdominal Pain
Source: patient and residential caregiver
Exam Limitations: none
Time Seen by Provider: 10/13/24 18:53
Nursing documentation reviewed up to this point in time: agreed with
History of Present Illness
History of Present Illness:
Patient with history of congestive heart failure on Lasix, presents to ED secondary to increased shortness of breath with desaturation noted at home, along with 'gut pain', associated with swelling. Patient states that his pulse ox noted at home to
be at 74%. Patient denies oxygen at home. Denies chest pain. Denies nausea or vomiting. Denies fever or chills. Denies coughing. Denies increased leg swelling. Patient was admitted to the hospital for similar complaint 1 month ago.
Past History
Past History
ED Past Medical History: CAD, HTN, Hypercholesterolemia and Seizures
Social History
Tobacco: Non-smoker
Personal:
Living: with family
Employment: Retired
Review of Systems
Review of Systems
Allergies reviewed?: Yes
All Other Systems: ROS reviewed and negative except as documented in HPI and ROS
Constitutional: Reports no symptoms; Denies fever
EENT: Reports no symptoms
Respiratory: Reports trouble breathing
Cardiac: Reports no symptoms; Denies chest pain or palpitations
ABD/GI: Reports no symptoms; Denies vomiting or diarrhea
Musculoskeletal: Reports edema
Skin: Reports no symptoms
Neurological: Reports no symptoms
Phy Exam
Physical Exam
Physical Exam:
Physical Exam
General: mild distress, not acutely ill. afebrile
Head: nc/at. eomi
Neck: supple. normal range of motion.
Heart: s1/s2 regular rate and rhythm, no murmur. equal radial pulses.
Lungs: no acute respiratory distress. clear bilaterally
Abdomen: normal bowel sounds. not tender. mild distention
Neuro: alert and oriented. no focal neurological deficits
Skin: no rash
Psychiatric: well kept. interactive and cooperative
Extremities: no edema. no calf tenderness.
Course
Orders/Labs/Results
Orders:
Orders
10/13/24 Breakfast
Cholesterol Lowering
At Your Request: Limited Participation
Fluid Restriction: 1200 mL/day (40 oz)
Cholesterol Lowering: Sodium, 2 Gram
10/13/24 19:26
Electrocardiogram (*1) Urgent
Reason for Study: Shortness of Breath
EKG- Treatment ONCE
CR Chest - 2 Views Urgent
Comment:
Reason For Exam: sob
10/13/24 19:53
Complete Blood Count/No Diff Urgent
NT-proBNP Urgent
Troponin I Urgent
10/13/24 20:23
Comprehensive Metabolic Panel Urgent
Magnesium Urgent
10/13/24 20:40
Furosemide [Lasix] 40 mg IV NOW STA
10/13/24 21:12
Admit/Transfer Patient As Directed
Co-Sign Provider:
Level of Care: Inpatient admission
Assign to:: Telemetry
Physician / Group: hakeem
Diagnosis: acute hypoxic respiratory failure
Reason for Telemetry: Arrhythmia
Date to Stop Telemetry: 10/16/24
Time to Stop Telemetry: 11:00
Reason for Hospitalization: acute hypoxic respiratory failure
Expected length of stay greater than two midnights?: Yes
ELOS- Estimated Length of Stay in days: 3
I certify the patient meets the requirements for IP care: Yes
10/13/24 21:13
Code Status As Directed
Resuscitation Status: Do not resuscitate
Reached after discussion with pt or family/Healthcare POA: Yes
DNR Bracelet Application ONCE
PRN Pain Medication Management As Directed
May give lesser potent ordered pain med per pt: Yes
preference::
Protocol:: Medication orders for pain may be administered in a
manner that supports deferring to patient preference
when the pt is:
- Requesting an ordered lesser potent pain medication.
Least to most potent pain medications are defined
as: acetaminophen < NSAID < tramadol < opioids
(morphine, oxycodone, hydromorphone).
- Requesting a lesser dose of the same medication IF
ORDERED.
- Requesting a less intrusive route of administration
if both routes are prescribed by the provider (PO <
IV).
10/13/24 22:43
Bisacodyl [Dulcolax] 10 mg PO DAILYPRN PRN
Carbamazepine [Tegretol] 200 mg PO TID
Docusate Sodium [Colace] 100 mg PO BID
Polyethylene Glycol Powder [Miralax] 17 grams PO DAILY
cabergoline 1 mg PO MOTH
10/13/24 22:43
CARDIOLOGY CONSULT Routine
Consulting Provider: Aristides Hampton
Was physician already notified: Yes
HF DIETARY CONSULT Routine
HF EDUCATOR CONSULT Routine
Comment:
Activity As Directed
Activity Level: As Tolerated
Intake/ Output As Directed
Frequency: Per unit guidelines
Patient Education As Directed
Type: CHF folder
Comment: give on admission. Document in Interdisciplinary Education record
Pneumatic Compression Sleeves As Directed
Type: Thigh high
Sleep Apnea Assessment by RN As Directed
Comment:
Physician Instructions:
Vital Signs As Directed
Frequency: Other
Additional Instructions:: Q12 or per unit guidelines if more frequent.
Weight As Directed
Frequency: Daily
Type of Scale: Standing Scale
Comment: Daily morning weight. If unable to stand, use balanced bed scale.
Weight As Directed
Frequency: Once
Type of Scale: Standing Scale
Comment: Upon Admission. If unable to stand, use balanced bed scale.
Pulse Ox/cont/shift [RESP] Routine
Quantity: 1
Special Instructions: Daily pulse oximetry at rest. If greater than 92% at rest also obtain pulse oximetry
while ambulating as tolerated.
Pt Eval And Treat Routine
Activity Level: As Tolerated
DX Deep Vein Thrombosis Video Routine
10/14/24 06:16
Cardiovascular Evaluation IN AM
TSH Reflex To Free T4 IN AM
10/14/24 08:00
Apixaban [Eliquis] 5 mg PO BID
Furosemide [Lasix] 40 mg IV BID AT 0800,1600
Lisinopril [Zestril] 20 mg PO DAILY
Metoprolol Xl [Toprol Xl] 50 mg PO DAILY
Rosuvastatin Calcium [Crestor] 20 mg PO DAILY
10/16/24 11:00
DC Protocol for Telemetry ONCE
Abnormal Lab Results
10/13/24 10/13/24
19:53 20:23
RBC 4.48 L 10^6/uL
(4.70-6.10)
Chloride 97 L mmol/L
(98-107)
BUN 32 H mg/dl
(9-20)
Creatinine 0.6 L mg/dL
(0.7-1.3)
Glucose 101 H mg/dl
(70-99)
Alkaline Phosphatase 151 H U/L
(38-126)
Total Protein 6.2 L g/dl
(6.3-8.2)
10/13/24 19:53
10/13/24 20:23
Vital Signs
Initial and Last Documented VS:
Initial Vital Signs
Temp Pulse Pulse Ox
98.3 F 75 95
10/13/24 17:27 10/13/24 17:27 10/13/24 17:27
Last Documented Vital Signs
Temp Pulse Resp BP Pulse Ox
97.9 F 79 20 128/71 94
10/14/24 17:46 10/14/24 17:46 10/14/24 17:46 10/14/24 17:46 10/14/24 17:46
MDM/Problems Addressed
MDM/Problems Addressed:
Patient's initial pulse ox in 70s, improved with supplemental oxygen. History and exam concerning for recurrent exacerbation of congestive heart failure, with weight gain and increased swelling. Doubt PE, as patient is on chronic Eliquis treatment.
*Critical Care Note
Total Time (30-74mins, 75-104mins- exclusive of procedures): Not Applicable
ED Attending Note
-
Portions of this chart may have been created with voice recognition software.� Occasional wrong word or��sound alike� substitutions may have occurred due to the inherent limitations of voice recognition software.
Discharge Plan
Departure
Patient Disposition: Admit
Date of Disposition: 10/13/24
Time of Disposition: 20:41
Presentation/result/management discussed w/ accepting MD/DO: Hospitalist
Discharge Problem:
Hypoxia, Congestive heart failure (CHF)
Interventions
Interventions:
*Risk Screen - Suicide Last Done: 10/13/24 19:53
*General Assessment Last Done: 10/13/24 19:53
*Neglect/Abuse Screening Last Done: 10/13/24 19:53
*ED COVID-19 Vaccine History Last Done: 10/13/24 19:53
*Nursing Disposition Last Done: 10/14/24 17:37
CR-Syxalc-Prikxoddzn Assessment Last Done: 10/13/24 19:53
Discharge Date and Time
Discharge Date/Time: 10/14/24 17:38
[2024-10-13 20:03] LABS: Hematocrit 40.7 % (39.0-52.0); Hemoglobin 13.5 g/dL (13.0-18.0); Mean Corp Hgb Conc. 33.2 g/dL (33.0-37.0); Mean Corpuscular Hgb 30.1 pg (27.0-31.0); Mean Corpuscular Volume 90.8 fL (80.0-94.0); Mean Platelet Volume 9.8 fL (7.4-10.4); Platelet Count 258 10^3/uL (130-400); Red Blood Cell Count 4.48 10^6/uL (4.70-6.10); Red Cell Dist. Width 14.4 % (11.5-14.5); White Blood Cell Count 9.3 10^3/uL (4.8-10.8)
[2024-10-13 20:26] LABS: NT-proBNP 2550 pg/ml; Troponin I 0.014 ng/ml
--- NOTE | 2024-10-13 20:49 | HPS.HSE ---
Addendum entered and electronically signed by Rafael Durham DO 10/13/24 21:49:
Patient seen and examined independently. Agree with findings and plan as set forth by KIRSTY Avery.
Patient is an 84y M with PMH significant for ASCVD, HFpEF and A-Fib who presents to ED complaining of increasing SOB and abdominal distention / discomfort. Patient reports that his weight at home has been stable - though his abdomen has become
progressively more distended and his weight per our records is up approx 5 kg from his last admission. He denies any chest pain. No cough, fevers / chills, etc.
Patient has been compliant with his current med regimen including daily Lasix dosing.
Ass:
Acute on Chronic HFpEF
Acute Hypoxemic respiratory Failure secondary to the above
ASCVD (CAD, Retinal Vein Occlusion)
Paroxysmal Atrial Fibrillation
PPM Placement (09/2024)
Benign Hypertension
Seizure Disorder
Plan:
Admit for further evaluation and treatment.
IV Lasix BID and follow I/Os, daily weights, etc.
Update Echo - last in 07/2024 with preserved EF.
Cardiology evaluation.
Follow for clinical improvement.
Continue outpatient AED regimen.
Bowel regimen for constipation.
Original Note:
Family Physician
-
Family Physician: Rut Chaudhry
Chief Complaint
-
sob
History of Present Illness
84 year old with Past medical history of congestive heart failure on Lasix, HLD, atrial fib, HTn, CAD, presents to ED secondary to increased shortness of breath for past one week.stated orthopnea. denied sob with exertion. denied worsening of LE
edema. stated weight gain. patient denied chest pain, cough, congestion. denied BORJA, dizzy or syncope. patient complained of lower abdominal pain since the Dora.he also complained of nausea. denied vomiting or diarrhea. denied dysuria or
hematuria.
noted elevated BNP. chest x ray pending. he is hypoxic and requiring 3l of oxygen. patient received a dose of Lasix in ER. admitting for further management.
Medical History
Past Medical History
Past Medical History: Reports Other
Additional Past Medical History:
Hyperlipidemia
A-fib
Mitral regurgitation
Hypertension
Coronary artery disease
Routine ovarian occlusion
Seizure
Pleural effusion
Spinal stenosis
Pleural effusion
Hyponatremia
Past Surgical History: Reports Other
Additional Past Surgical History:
Coronary artery bypass graft x 4
Carpal tunnel surgery
Cataract extraction
Carroll tooth extraction
Social History
Tobacco: Non-smoker
Alcohol: Occasional
Drug: None
Family History
Family History: Not pertinent
Allergies / Home Medications
Allergies reflects when Allergies were last updated in [employer].
Home Medications with original date entered in [employer]
Allergy/Medication List:
Allergies
Allergy/AdvReac Type Severity Reaction Status Date / Time
No Known Allergies Allergy Verified 10/01/21 18:15
Home Medications
ascorbic acid (vitamin C) 500 mg tablet (Vitamin C) 500 mg PO DAILY Supplement 07/19/16
cyanocobalamin (vitamin B-12) 1,000 mcg tablet 1,000 mcg PO DAILY Supplement 07/19/16
apixaban 5 mg tablet (Eliquis) 5 mg PO BID Blood clot prevention/tx 10/02/21
carbamazepine 200 mg tablet 200 mg PO TID Seizures 10/02/21
acetaminophen 500 mg tablet 500 mg PO Q4HPRN PRN mild pain 12/14/23
calcium carbonate 500 mg PO DAILY Supplement 12/14/23
metoprolol succinate 50 mg tablet,extended release 24 hr 50 mg PO DAILY Blood Pressure 12/14/23
multivitamin 1 tab PO DAILY Supplement 12/14/23
nitroglycerin 0.4 mg sublingual tablet 0.4 mg sublingual [id number] PRN chest pain 12/14/23
rosuvastatin 20 mg tablet 20 mg PO DAILY High Cholesterol 12/14/23
furosemide 40 mg tablet 40 mg PO DAILY #30 tabs 08/03/24
cabergoline See Rx Instructions .Route .COMPLEX 08/28/24
docusate sodium 100 mg capsule 100 mg PO BID #30 caps 09/04/24
Review of Systems
-
Constitutional: Reports Weight Gain
EENT: Reports No Symptoms
Respiratory: Reports Trouble Breathing
Cardiac: Reports No Symptoms
Abdomen/GI: Reports Abdominal Pain and Nausea
: Reports No Symptoms
Musculoskeletal: Reports Edema (LE edema)
Skin: Reports No Symptoms
Neurological: Reports No Symptoms
Endocrine: Reports No Symptoms
Hematologic/Lymphatic: Reports No Symptoms
Psych: Reports No Symptoms
Physical Exam
Vital Signs
Vital Signs
Temp Pulse Resp BP Pulse Ox
98.3 F 70 20 177/84 96
10/13/24 17:27 10/13/24 20:00 10/13/24 20:00 10/13/24 20:00 10/13/24 20:00
Physical Exam
General: Well Developed, Well Nourished and No Apparent Distress
HEENT: NormoCephalic, Moist mucous membranes and Atraumatic
Respiratory: Clear
Cardiac: S1/S2 and Regular Rhythm; No Murmur or Rub
GI: Soft, Non Tender, Non Distended and Normal Bowel Sounds; No Organomegaly
Rectal: Deferred by Provider
Musculoskeletal: No Clubbing, No Cyanosis and Other (b/l Le edema)
Skin: No Rash
Neuro: AO x 3 and Nonfocal/grossly intact
Psych: Calm
Laboratory Results
-
10/13/24 19:53
Laboratory Results
Total Bilirubin Cancelled 10/13/24 19:53
AST Cancelled 10/13/24 19:53
ALT Cancelled 10/13/24 19:53
Alkaline Phosphatase Cancelled 10/13/24 19:53
Troponin I 0.014 ng/ml 10/13/24 19:53
Data Reviewed
-
Lab Data: Labs Reviewed by me
Impression/Plan
-
#acute hypoxic respiratory failure likely CHF exacerbation
-patient requiring 3l of oxygen
-continue supplemental oxygen to keep sat >95
-wean as tolerated
-iv diuretics continued
-strict I &O
-daily weight
-fluid restriction
-cards consulted
-BNP 2550
-chest x ray pending.
-obtain ECHO
#lower abdominal pain likely constipation
-miralax, Colace and Dulcolax added
-ctm
#paroxysmal AFIB with cardiac pauses
-pacemaker
-Continue metoprolol/Eliquis
# h/o seizure
-carbamazepine continued
#HLD
-statin
CODE STATUS: DNR
DVT prophylaxis: Eliquis
[2024-10-13 20:55] LABS: ALT (SGPT) 27 U/L (0-50); AST (SGOT) 24 U/L (17-59); Albumin 3.7 g/dl (3.5-5.0); Alkaline Phosphatase 151 U/L (38-126); Blood Urea Nitrogen 32 mg/dl (9-20); Calcium 8.6 mg/dl (8.4-10.2); Carbon Dioxide 30 mmol/L (22-30); Chloride 97 mmol/L (98-107); Estimated Creatinine Clearance 101 ml/min; Glucose 101 mg/dl (70-99); Magnesium 2.3 mg/dl (1.6-2.3); Potassium 3.9 mmol/L (3.5-5.1); Sodium 135 mmol/L (135-145); Total Bilirubin 0.7 mg/dl (0.2-1.3); Total Protein 6.2 g/dl (6.3-8.2); eGFR > 60.00
[2024-10-13] MEDS: LASIX 40 MG IV (21:07)
[2024-10-13 21:09] VITALS: BP 165/84
[2024-10-13 21:37] VITALS: BMI 26.2
[2024-10-13 22:00] VITALS: BP 164/66
[2024-10-13 23:00] VITALS: BP 161/84
[2024-10-14] VITALS (21 sets, daily range): BP systolic 101–180; BP diastolic 52–86; PULSE 81; BMI 25.0
--- NOTE | 2024-10-14 | EDRN ---
Report received, patient incontinent to urine, patient cleaned up and condom cath applied, call sykes in reach, will continue to monitor
[2024-10-14] MEDS: TEGRETOL 200 MG PO ×4 (00:19→21:11)
[2024-10-14] MEDS: COLACE 100 MG PO ×3 (00:19→21:11)
[2024-10-14] MEDS: MIRALAX 17 GRAMS PO ×2 (00:19→08:32)
--- NOTE | 2024-10-14 02:00 | EDRN ---
Patient keeps taking his o2 out, reminded him to keep it in his nose as his oxygen level drops when he does
[2024-10-14 06:59] LABS: HDL Cholesterol 62 mg/dl; LDL Cholesterol, Calculated 73 mg/dl; Total Cholesterol 152 mg/dl (50-199); Triglyceride 88 mg/dl (10-149); Very Low Density Lipoprotein 17 mg/dl (0-30)
[2024-10-14 07:29] LABS: TSH Reflex To Free T4 2.76 uIU/ml (0.47-4.68)
[2024-10-14] MEDS: TOPROL XL 50 MG PO (08:30)
[2024-10-14] MEDS: LASIX 40 MG IV ×2 (08:31→17:06)
[2024-10-14] MEDS: ZESTRIL 20 MG PO (08:31)
[2024-10-14] MEDS: ELIQUIS 5 MG PO ×2 (08:31→21:11)
[2024-10-14] MEDS: CRESTOR 20 MG PO (08:43)
--- NOTE | 2024-10-14 09:07 | CON.CAR ---
Addendum entered and electronically signed by Edwin Lal MD 10/14/24 12:34:
I saw and examined the patient.
The POWER NUT RUNNER OPERATOR's note was reviewed and I agree with the note.
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
presents to the ER with c/o acute SOB. On exam he has b/l rales, irreg irreg LE edema b/l, lethargic, but did get himself sitting up for exam 'Im tired, I didn't sleep all night'. CXR shows pulmonary edema. ECg af with pacing.
Acute on chronic HFpEF, unclear etiology but needs aggressive IV diureis with intensive montioring. If any further worsening of lethargy would get ABG and offer CPAP. Update echo. Afib - permanent. continue Eliquis. Recent Micra pacing on ECG.
Original Note:
Consultation
Consultation Request
Date/Time Consultation Requested: 10/13/24 10:45p
Date/Time Consultation Performed: 10/14/24 9a
Requesting Provider: KIRSTY Avery
Performing Provider: KIRSTY Mock for Dr. Lal
Reason for Consultation: HFpEF
Medical History
-
Chief Complaint: sob
History of Present Illness:
Mr. 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
who presents to the ER with c/o acute SOB. He is admitted to the hospitalist service and we are consulted for acute HFpEF. CXR with small pleural effusions, proBNP elevated. He reports weight at home is 188-189 lbs (his dry weight range is 183 -
187 lbs), on Lasix 40mg daily and has not taken any extra.
Past Medical History
Past Medical History: Other (as above)
Past Surgical History: Cardiac (MDT Kiara neri PPM 09/01/24)
Social History
Tobacco: Non-Smoker
Family History
Family History: Reviewed & Not Pertinent
Allergies / Home Medications
Allergy/AdvReac Type Severity Reaction Status Date / Time
No Known Allergies Allergy Verified 10/01/21 18:15
�Medication �Instructions �Recorded �Confirmed �Type
ascorbic acid (vitamin C) 500 mg 500 mg PO DAILY Supplement 07/19/16 10/13/24 History
tablet (Vitamin C)
cyanocobalamin (vitamin B-12) 1,000 mcg PO DAILY Supplement 07/19/16 10/13/24 History
1,000 mcg tablet
apixaban 5 mg tablet (Eliquis) 5 mg PO BID Blood clot 10/02/21 10/13/24 History
prevention/tx
carbamazepine 200 mg tablet 200 mg PO TID Seizures 10/02/21 10/13/24 History
acetaminophen 500 mg tablet 1,000 mg PO BID 12/14/23 10/13/24 History
calcium carbonate 500 mg PO DAILY Supplement 12/14/23 10/13/24 History
metoprolol succinate 50 mg 50 mg PO DAILY Blood Pressure 12/14/23 10/13/24 History
tablet,extended release 24 hr
nitroglycerin 0.4 mg sublingual 0.4 mg sublingual [id number] PRN 12/14/23 10/13/24 History
tablet chest pain
rosuvastatin 20 mg tablet 20 mg PO DAILY High Cholesterol 12/14/23 10/13/24 History
furosemide 40 mg tablet 40 mg PO DAILY #30 tabs 08/03/24 10/13/24 Rx
cabergoline 0.5 mg tablet 1 mg PO MOTH ##0 08/28/24 10/13/24 History
docusate sodium 100 mg capsule 100 mg PO BID #30 caps 09/04/24 10/13/24 Rx
cholecalciferol (vitamin D3) 50 50 mcg PO DAILY 10/13/24 10/13/24 History
mcg (2,000 unit) tablet (Vitamin
D3)
lisinopril 20 mg tablet 20 mg PO DAILY 10/13/24 10/13/24 History
therapeutic multivitamin 1 tab PO DAILY 10/13/24 10/13/24 History
Review of Systems
-
History Source: Patient
All other systems: Negative unless noted
Physical Exam
Vital Signs
Temp Pulse Resp BP Pulse Ox
98.3 F 86 27 139/75 92
10/13/24 17:27 10/14/24 08:31 10/14/24 08:15 10/14/24 08:31 10/14/24 08:15
Lab Results
10/13/24 19:53
10/13/24 20:23
Troponin I 0.014 ng/ml 10/13/24 19:53
Ayj-Q-Tgfxmtmpcft Pept 2550 pg/ml 10/13/24 19:53
Physical Exam
General: Well Developed and No Apparent Distress
HEENT: Normocephalic, Anicteric and Moist Mucous Membranes
Respiratory: Wheezes (diffuse expiratory) and Non Labored Respirations
Cardiac: S1/S2, Irregular Rhythm and Peripheral Edema (L>R moderate LE edema)
Breast: Deferred by me
GI: Soft, Non Tender, Non Distended and Normal Bowel Sounds
Rectal: Deferred by Provider
Genito-urinary: Clear Urine
Musculoskeletal: No Clubbing and No Cyanosis
Skin: Warm and Dry
Neuro: AO x 3
Psych: Calm
Impression / Plan
-
HFpEF - Acute on chronic.
- Echo 07/30/24: EF 55%. Moderate cLVH, SHAINA, dilated aortic root (4.5 cm) and ascending aorta (4.2 cm). Mild MR, AR, Mild to moderate tricuspid regurgitation. PASP 40-45 mmHg.
- weight on admit 192 lbs, weight at d/c 09/04/24 was 181 lbs and d/c home on Lasix 40mg daily.
- he admits to taking Lasix 40mg daily and weight at home has been 188-189 lbs which is higher than is dry range 183-187 lbs.
- proBNP 2250 this admit, less than last admit (3440).
- agree with IV Lasix BID, monitor daily weights, I&Os, fluid/sodium restrictions.
- check echo.
Afib - permanent.
- rate-controlled on Toprol, continue.
- OAC with Eliquis, continue.
CAD - stable w/o angina.
- continue medical therapy.
HTN - stable.
- monitor with diuresis.
PPM - MDT Micra leadless.
- implanted 09/01/24.
- stable with normal function.
Data Reviewed
-
EKG: Tracing Personally Visualized and interpreted (Afib/Vpaced RBBB 70 bpm)
Radiology: Report Reviewed by me (CXR: small right and trace left pleural effusion with atelectasis)
Medical Tests (Nuc Med, Echo etc): Report Reviewed by me (Echo 07/30/24: EF 55%. Moderate concentric LV hypertrophy. Biatrial enlargement. Dilated aortic root (4.5 cm) and ascending aorta (4.2 cm). Mild mitral regurgitation. Mild aortic stenosis.
Moderate aortic regurgitation. Mild to moderate tricuspid regurgitation. PASP 40-45 mmHg.)
Labs: Labs Reviewed by me
Old Records: Reviewed
--- NOTE | 2024-10-14 12:39 | W.PN.HOSP.TC ---
Today's Communication/Plan
-
Monitor vital signs
see plan
Continue with IV diuresis
Echo
Continue with fluid restriction
Wean oxygen as tolerated
Assessment / Plan
Assessment / Plan
General: Well Developed, Well Nourished and No Apparent Distress
HEENT: NormoCephalic, Moist mucous membranes and Atraumatic
Respiratory: Clear
Cardiac: S1/S2 and Regular Rhythm; No Murmur or Rub
GI: Soft, Non Tender, Non Distended and Normal Bowel Sounds
Musculoskeletal: (b/l Le edema)
Neuro: AO x 3 and Nonfocal/grossly intact
Psych: Calm
acute hypoxic respiratory insufficiency likely CHF with preserved exacerbation
-patient requiring 3l of oxygen, wean oxygen as tolerated
Continue with IV diuresis
-strict I &O
-daily weight
-fluid restriction
Cardiology following
Check echo
-BNP 2550
#lower abdominal pain likely constipation
-miralax, Colace and Dulcolax added
-ctm
# Permanent AFIB with cardiac pauses
-S/p pacemaker
-Continue metoprolol/Eliquis
# h/o seizure
-carbamazepine continued
#HLD
-statin
CODE STATUS: DNR
DVT prophylaxis: Eliquis
I spent a total of 52 minutes with the patient or on the floor. More than 50% of this time involved counseling and coordination of care.
Anticipated Discharge: 24 - 48 hours
Subjective/Interval History
-
Date of Service: October 14, 2024
Denies chest pain
Objective Data
-
Vital Signs:
Vital Signs
Temp Pulse Resp BP Pulse Ox
97.9 F 80 19 141/86 88
10/14/24 09:43 10/14/24 10:45 10/14/24 10:45 10/14/24 09:23 10/14/24 09:16
I&O
10/13/24 10/14/24 10/15/24
06:59 06:59 06:59
Output Total 800 / 800
Balance -800 / -800
--- NOTE | 2024-10-14 18:00 | PTCARENOTE ---
Received patient from ED via stretcher. AAOx3 BLACKFEET, ambulated to bed with assistance x1 and rolling walker. Assessed and oriented to room. Patient refusing to wear O2. Lying in bed pulse ox 94%. Call sykes in close reach. Bed alarm in place. Will
continue to monitor.
[2024-10-15] VITALS (8 sets, daily range): BP systolic 93–133; BP diastolic 55–93; PULSE 79–88; O2SAT 92–94; BMI 24.8; BMI 24.9
[2024-10-15 08:15] LABS: % Basophils 0.9 % (0-2); % Eosinophils 3.6 % (0-6); % Immature Granulocytes 0.8 % (0-0.5); % Lymphocytes 18.9 % (20.5-51.1); % Monocytes 9.5 % (1.7-9.3); % Neutrophils 66.3 % (42.2-75.2); Absolute Basophils 0.1 10^3/uL (0-0.2); Absolute Eosinophils 0.4 10^3/uL (0-0.7); Absolute Immature Granulocytes 0.1 10^3/uL (0-0.05); Absolute Lymphocytes 1.8 10^3/uL (1.2-3.4); Absolute Monocytes 0.9 10^3/uL (0.1-0.6); Absolute Neutrophils 6.4 10^3/uL (1.4-6.5); Hematocrit 42.2 % (39.0-52.0); Hemoglobin 13.8 g/dL (13.0-18.0); Mean Corp Hgb Conc. 32.7 g/dL (33.0-37.0); Mean Corpuscular Hgb 30.5 pg (27.0-31.0); Mean Corpuscular Volume 93.2 fL (80.0-94.0); Mean Platelet Volume 9.5 fL (7.4-10.4); Nucleated Red Blood Cells % 0 % (-); Platelet Count 260 10^3/uL (130-400); Red Blood Cell Count 4.53 10^6/uL (4.70-6.10); Red Cell Dist. Width 14.3 % (11.5-14.5); White Blood Cell Count 9.6 10^3/uL (4.8-10.8)
--- NOTE | 2024-10-15 08:27 | W.PN.CD ---
Today's Communication / Plan
-
continue lasix 40mg IV bid
Impression / Plan
-
HFpEF - Acute on chronic. Severe, requiring hospitalization.
- Echo 10/14/24: EF 50-55%. Mild/mod MR/AR/TR, mild , PASP 40 Asc Ao 4.5cm
- weight at home has been 188-189 lbs which is higher than is dry range 183-187 lbs.
- proBNP 2250 this admit, less than last admit (3440).
- continue lasix 40mg IV bid with close monitoring of labs, tele
Afib - permanent.
- rate-controlled on Toprol, continue.
- OAC with Eliquis, continue.
CAD - stable w/o angina.
- continue medical therapy. not on ASA since on eliquis for A fib
HTN - stable.
- monitor with diuresis. cont lisinopril 20mg daily, Toprol XL 50mg daily
PPM - MDT Micra leadless.
- implanted 09/01/24.
- stable
Valvular HD
Dilated ascending aorta
Physical Exam
Vital Signs/Labs
Vital Signs
Temp Pulse Resp BP Pulse Ox
97.7 F 71 18 132/93 95
10/15/24 07:20 10/15/24 07:20 10/15/24 07:20 10/15/24 07:20 10/15/24 07:20
10/14/24 10/15/24 10/16/24
06:59 06:59 06:59
Actual Weight 87.5 kg 83.036 kg
10/15/24 08:03
Magnesium 2.3 mg/dl (1.6-2.3) 10/13/24 20:23
Triglycerides 88 mg/dl (10-149) 10/14/24 06:16
LDL Cholesterol, Calc 73 mg/dl 10/14/24 06:16
VLDL Cholesterol, Calc 17 mg/dl (0-30) 10/14/24 06:16
HDL Cholesterol 62 mg/dl 10/14/24 06:16
10/13/24
19:53
Uam-M-Yrasnqoantp Pept 2550
LAB Results
10/13/24
19:53
Troponin I 0.014
Physical Exam
Constitutional: No acute distress and Comfortable
EENT: Moist mucous membranes
Cardiovascular: Rhythm/rate is irregular, Pedal edema present, JVD present and Systolic murmur present
Respiratory: Respiratory effort normal
Neuro/Psych: AO x 3
Data Reviewed
-
Date of Service: October 15, 2024
EKG: Other (Tele: A fib 70s, occasional V pacing)
Labs: Labs Reviewed by me
[2024-10-15] MEDS: COLACE 100 MG PO ×2 (09:19→20:14)
[2024-10-15] MEDS: TEGRETOL 200 MG PO ×3 (09:19→20:16)
[2024-10-15] MEDS: MIRALAX 17 GRAMS PO (09:19)
[2024-10-15] MEDS: ZESTRIL 20 MG PO (09:19)
[2024-10-15] MEDS: CRESTOR 20 MG PO (09:19)
[2024-10-15] MEDS: TOPROL XL 50 MG PO (09:20)
[2024-10-15] MEDS: ELIQUIS 5 MG PO ×2 (09:20→20:15)
[2024-10-15 09:59] LABS: Blood Urea Nitrogen 37 mg/dl (9-20); Calcium 8.7 mg/dl (8.4-10.2); Carbon Dioxide 31 mmol/L (22-30); Chloride 96 mmol/L (98-107); Estimated Creatinine Clearance 86 ml/min; Glucose 144 mg/dl (70-99); Potassium 3.9 mmol/L (3.5-5.1); Sodium 138 mmol/L (135-145); eGFR > 60.00
[2024-10-15] MEDS: LASIX 40 MG IV ×2 (10:02→15:31)
[2024-10-15] MEDS: VITAMIN D3 (cholecalciferol) 50 MCG PO (10:02)
[2024-10-15] MEDS: VITAMIN B-12 1000 MCG PO (10:02)
[2024-10-15] MEDS: VITAMIN C 500 MG PO (10:02)
[2024-10-15] MEDS: THERAGRAN 1 TABLET PO (10:02)
[2024-10-15] MEDS: OSCAL CAL 500 500 MG PO (10:02)
--- NOTE | 2024-10-15 12:55 | W.PN.HOSP.TC ---
Today's Communication/Plan
-
Monitor vital signs see plan
Wean oxygen as tolerated
Continue with IV diuresis
Assessment / Plan
Assessment / Plan
General: Well Developed, Well Nourished and No Apparent Distress
HEENT: NormoCephalic, Moist mucous membranes and Atraumatic
Respiratory: Clear
Cardiac: S1/S2 and Regular Rhythm; No Murmur or Rub
GI: Soft, Non Tender, Non Distended and Normal Bowel Sounds
Musculoskeletal: (b/l Le edema)
Neuro: AO x 3 and Nonfocal/grossly intact
Psych: Calm
acute hypoxic respiratory insufficiency likely CHF with preserved exacerbation
-patient requiring 3l of oxygen, wean oxygen as tolerated
Continue with IV diuresis
-strict I &O
-daily weight
-fluid restriction
Cardiology following
Echo 10/14 with EF 50 to 55%
-BNP 2550
#lower abdominal pain likely constipation
-miralax, Colace and Dulcolax added
-ctm
# Permanent AFIB with cardiac pauses
-S/p pacemaker
-Continue metoprolol/Eliquis
# h/o seizure
-carbamazepine continued
#HLD
-statin
CODE STATUS: DNR
DVT prophylaxis: Eliquis
Anticipated Discharge: 24 - 48 hours
Subjective/Interval History
-
Date of Service: October 15, 2024
denies pain
Objective Data
-
Labs:
Laboratory Results
10/15/24
08:03
WBC 9.6
Hgb 13.8
Hct 42.2
Plt Count 260
Sodium 138
Potassium 3.9
Chloride 96 L
Carbon Dioxide 31 H
BUN 37 H
Creatinine 0.7
Glucose 144 H
Calcium 8.7
Vital Signs:
Vital Signs
Temp Pulse Resp BP Pulse Ox
97.5 F 88 20 106/81 96
10/15/24 11:46 10/15/24 11:46 10/15/24 11:46 10/15/24 11:46 10/15/24 11:46
I&O
10/14/24 10/15/24 10/16/24
06:59 06:59 06:59
Intake Total 720 / 720
Output Total 1650 / 1650
Balance -930 / -930
[2024-10-15] MEDS: TYLENOL 650 MG PO ×2 (14:04→20:15)
[2024-10-16 03:28] VITALS: BP 141/66
[2024-10-16] MEDS: TYLENOL 650 MG PO ×3 (03:30→21:06)
[2024-10-16 06:00] VITALS: BMI 24.9
[2024-10-16 07:30] VITALS: BP 118/64
[2024-10-16 07:51] LABS: Blood Urea Nitrogen 35 mg/dl (9-20); Calcium 8.3 mg/dl (8.4-10.2); Carbon Dioxide 34 mmol/L (22-30); Chloride 95 mmol/L (98-107); Estimated Creatinine Clearance 86 ml/min; Glucose 93 mg/dl (70-99); Potassium 3.9 mmol/L (3.5-5.1); Sodium 137 mmol/L (135-145); eGFR > 60.00
[2024-10-16 07:55] LABS: % Basophils 0.9 % (0-2); % Eosinophils 4.5 % (0-6); % Immature Granulocytes 0.6 % (0-0.5); % Lymphocytes 21.3 % (20.5-51.1); % Monocytes 15.7 % (1.7-9.3); Absolute Basophils 0.1 10^3/uL (0-0.2); Absolute Eosinophils 0.4 10^3/uL (0-0.7); Absolute Immature Granulocytes 0.1 10^3/uL (0-0.05); Absolute Lymphocytes 1.8 10^3/uL (1.2-3.4); Absolute Monocytes 1.3 10^3/uL (0.1-0.6); Absolute Neutrophils 4.8 10^3/uL (1.4-6.5); Hematocrit 39.1 % (39.0-52.0); Hemoglobin 13.1 g/dL (13.0-18.0); Mean Corp Hgb Conc. 33.5 g/dL (33.0-37.0); Mean Corpuscular Hgb 31.2 pg (27.0-31.0); Mean Corpuscular Volume 93.1 fL (80.0-94.0); Mean Platelet Volume 10.5 fL (7.4-10.4); Nucleated Red Blood Cells % 0 % (-); Platelet Count 255 10^3/uL (130-400); Red Cell Dist. Width 14.5 % (11.5-14.5); White Blood Cell Count 8.5 10^3/uL (4.8-10.8)
[2024-10-16] MEDS: LASIX 40 MG IV ×3 (08:16→17:41)
[2024-10-16] MEDS: THERAGRAN 1 TABLET PO (08:17)
[2024-10-16] MEDS: OSCAL CAL 500 500 MG PO (08:17)
[2024-10-16] MEDS: VITAMIN C 500 MG PO (08:17)
[2024-10-16] MEDS: VITAMIN B-12 1000 MCG PO (08:17)
[2024-10-16] MEDS: ZESTRIL 20 MG PO (08:17)
[2024-10-16] MEDS: ELIQUIS 5 MG PO ×2 (08:17→21:03)
[2024-10-16] MEDS: TOPROL XL 50 MG PO (08:17)
[2024-10-16] MEDS: VITAMIN D3 (cholecalciferol) 50 MCG PO (08:17)
[2024-10-16] MEDS: CRESTOR 20 MG PO (08:17)
[2024-10-16] MEDS: COLACE 100 MG PO ×2 (08:22→21:03)
[2024-10-16] MEDS: MIRALAX 17 GRAMS PO (08:22)
[2024-10-16] MEDS: TEGRETOL 200 MG PO ×3 (08:24→21:03)
--- NOTE | 2024-10-16 08:32 | W.PN.CD ---
Today's Communication / Plan
-
400 negative I/o and weight without change. still wheezing. On Iv lasix 40mg BID . will give 80mg this morning rather than 40mg
Impression / Plan
-
HFpEF - Acute on chronic. Severe, requiring hospitalization.
- Echo 10/14/24: EF 50-55%. Mild/mod MR/AR/TR, mild , PASP 40 Asc Ao 4.5cm
- weight at home has been 188-189 lbs which is higher than is dry range 183-187 lbs.
- proBNP 2250 this admit, less than last admit (3440).
--400 negative I/o and weight without change. still wheezing. On Iv lasix 40mg BID . will give 80mg this morning
Afib - permanent.
- rate-controlled on Toprol, continue.
- OAC with Eliquis, continue.
CAD - stable w/o angina.
- continue medical therapy. not on ASA since on eliquis for A fib
HTN - stable.
- monitor with diuresis. cont lisinopril 20mg daily, Toprol XL 50mg daily
PPM - MDT Micra leadless.
- implanted 09/01/24.
- stable
Valvular HD
Dilated ascending aorta
Physical Exam
Vital Signs/Labs
Vital Signs
Temp Pulse Resp BP Pulse Ox
98.4 F 68 18 118/64 95
10/16/24 07:30 10/16/24 07:30 10/16/24 07:30 10/16/24 07:30 10/16/24 07:30
10/15/24 10/16/24 10/17/24
06:59 06:59 06:59
Actual Weight 83.036 kg 83.149 kg
10/16/24 06:45
10/16/24 06:45
Magnesium 2.3 mg/dl (1.6-2.3) 10/13/24 20:23
Triglycerides 88 mg/dl (10-149) 10/14/24 06:16
LDL Cholesterol, Calc 73 mg/dl 10/14/24 06:16
VLDL Cholesterol, Calc 17 mg/dl (0-30) 10/14/24 06:16
HDL Cholesterol 62 mg/dl 10/14/24 06:16
10/13/24
19:53
Mit-C-Ntkkwikrrjy Pept 2550
LAB Results
10/13/24
19:53
Troponin I 0.014
Physical Exam
Constitutional: No acute distress
Cardiovascular: Rhythm & rate is regular
Respiratory: Crackles Absent, Rhonchi Absent and Wheeze Present (bilat bases )
GI: Soft
Neuro/Psych: Alert
Data Reviewed
-
Date of Service: October 16, 2024
Medical Decision Making: Reviewed Test Results
Echo: Report Reviewed by me
Medical Tests (PFT, Pathology etc): Report Reviewed by me
Labs: Labs Reviewed by me
[2024-10-16 11:11] VITALS: BP 113/59
--- NOTE | 2024-10-16 11:25 | W.PN.HOSP.TC ---
Today's Communication/Plan
-
Monitor vital signs see plan
Continue with IV diuresis
Cardiology following
Assessment / Plan
Assessment / Plan
General: Well Developed, Well Nourished and No Apparent Distress
HEENT: NormoCephalic, Moist mucous membranes and Atraumatic
Respiratory: Clear
Cardiac: S1/S2 and Regular Rhythm; No Murmur or Rub
GI: Soft, Non Tender, Non Distended and Normal Bowel Sounds
Musculoskeletal: (b/l Le edema)
Neuro: AO x 3 and Nonfocal/grossly intact
Psych: Calm
acute hypoxic respiratory insufficiency likely CHF with preserved exacerbation
Now appears to be on room air
Continue with IV diuresis
-strict I &O
-daily weight
-fluid restriction
Cardiology following
Echo 10/14 with EF 50 to 55%
-BNP 2550
#lower abdominal pain likely constipation
-miralax, Colace and Dulcolax added
-ctm
# Permanent AFIB with cardiac pauses
-S/p pacemaker
-Continue metoprolol/Eliquis
# h/o seizure
-carbamazepine continued
#HLD
-statin
CODE STATUS: DNR
DVT prophylaxis: Eliquis
Anticipated Discharge: Within 24 hours
Subjective/Interval History
-
Date of Service: October 16, 2024
Denies pain
Objective Data
-
Labs:
Laboratory Results
10/16/24
06:45
WBC 8.5
Hgb 13.1
Hct 39.1
Plt Count 255
Sodium 137
Potassium 3.9
Chloride 95 L
Carbon Dioxide 34 H
BUN 35 H
Creatinine 0.7
Glucose 93
Calcium 8.3 L
Vital Signs:
Vital Signs
Temp Pulse Resp BP Pulse Ox
97.7 F 78 18 113/59 93
10/16/24 11:11 10/16/24 11:11 10/16/24 11:11 10/16/24 11:11 10/16/24 11:11
I&O
10/15/24 10/16/24 10/17/24
06:59 06:59 06:59
Intake Total 720 / 720 780 / 780
Output Total 1650 / 1650 1200 / 1200
Balance -930 / -930 -420 / -420
[2024-10-16 15:18] VITALS: BP 123/46
--- NOTE | 2024-10-16 17:33 | CM ---
CM met with patient for discharge planning. He lives with a caregiver who provides for all his care needs at home and will provide transport home at discharge.
Pt is known to [facility].
D/C plan: home with resumption of [facility] and caregiver services.
[2024-10-16] MEDS: NON-FORMULARY ITEM 1 MG PO (17:42)
[2024-10-16 19:42] VITALS: BP 113/61
[2024-10-16 23:21] VITALS: BP 118/61
[2024-10-17 03:45] VITALS: BP 116/63
[2024-10-17 05:21] VITALS: BMI 24.8
[2024-10-17] MEDS: TYLENOL 650 MG PO (05:23)
[2024-10-17 07:10] VITALS: BP 117/57
[2024-10-17 07:51] LABS: % Basophils 1.1 % (0-2); % Eosinophils 4.6 % (0-6); % Immature Granulocytes 1.6 % (0-0.5); % Lymphocytes 20.2 % (20.5-51.1); % Neutrophils 60.5 % (42.2-75.2); Absolute Basophils 0.1 10^3/uL (0-0.2); Absolute Eosinophils 0.5 10^3/uL (0-0.7); Absolute Immature Granulocytes 0.2 10^3/uL (0-0.05); Absolute Monocytes 1.2 10^3/uL (0.1-0.6); Hematocrit 38.7 % (39.0-52.0); Mean Corp Hgb Conc. 33.6 g/dL (33.0-37.0); Mean Corpuscular Volume 92.1 fL (80.0-94.0); Mean Platelet Volume 10.3 fL (7.4-10.4); Nucleated Red Blood Cells % 0 % (-); Platelet Count 251 10^3/uL (130-400); Red Cell Dist. Width 14.5 % (11.5-14.5); White Blood Cell Count 9.9 10^3/uL (4.8-10.8)
[2024-10-17 08:11] LABS: Blood Urea Nitrogen 37 mg/dl (9-20); Calcium 8.3 mg/dl (8.4-10.2); Carbon Dioxide 35 mmol/L (22-30); Chloride 95 mmol/L (98-107); Estimated Creatinine Clearance 86 ml/min; Glucose 127 mg/dl (70-99); Potassium 3.8 mmol/L (3.5-5.1); Sodium 136 mmol/L (135-145); eGFR > 60.00
--- NOTE | 2024-10-17 08:17 | W.PN.CD ---
Today's Communication / Plan
-
He examines euvolemic and is at his dry weight (183 lb)
Switch to PO Lasix.
Home diuretic plan: lasix 40mg PO daily. Increase to BID for weight gain >3lb overnight or >5lb in one week. Call if weight >190lb
Case management for SGLT2i pricing
He is safe for discharge planning for cardiology standpoint. Cardiology will sign off at this time; please call with any additional questions or concerns. He has follow-up with me scheduled in December.
Impression / Plan
-
HFpEF - Acute on chronic. Severe, requiring hospitalization.
- Echo 10/14/24: EF 50-55%. Mild/mod MR/AR/TR, mild , PASP 40 Asc Ao 4.5cm
- weight on admission 191 lb. He is 183 lb today which is dry weight and he appears euvolemic
-discharge diuretic plan: lasix 40mg PO daily. Increase to BID for weight gain >3lb overnight or >5lb in one week. Call if weight >190lb
-case management for SGLT2i pricing
Afib - permanent.
- rate-controlled on Toprol, continue.
- OAC with Eliquis, continue.
CAD - stable w/o angina.
- continue medical therapy. not on ASA since on eliquis for A fib
HTN - stable.
- monitor with diuresis. cont lisinopril 20mg daily, Toprol XL 50mg daily
PPM - MDT Micra leadless.
- implanted 09/01/24.
- stable
Valvular HD
Dilated ascending aorta
Subjective: Feels well today. Wants to go home. Still having a productive cough.
Physical Exam
Vital Signs/Labs
Vital Signs
Temp Pulse Resp BP Pulse Ox
98.6 F 63 22 117/57 92
10/17/24 07:10 02/14/25 07:10 10/17/24 07:10 10/17/24 07:10 10/17/24 07:10
10/16/24 10/17/24 10/18/24
06:59 06:59 06:59
Actual Weight 83.149 kg 82.809 kg
10/17/24 06:41
10/17/24 06:41
Magnesium 2.3 mg/dl (1.6-2.3) 10/13/24 20:23
Triglycerides 88 mg/dl (10-149) 10/14/24 06:16
LDL Cholesterol, Calc 73 mg/dl 10/14/24 06:16
VLDL Cholesterol, Calc 17 mg/dl (0-30) 10/14/24 06:16
HDL Cholesterol 62 mg/dl 10/14/24 06:16
10/13/24
19:53
Mxl-H-Gyylrkswrxl Pept 2550
Physical Exam
Constitutional: No acute distress and Comfortable
Cardiovascular: Pedal edema is absent, Rhythm/rate is irregular, S1S2 is normal and Murmur/rub/gallop absent
Respiratory: Respiratory effort normal and Lungs clear to auscul.
Data Reviewed
-
Date of Service: October 17, 2024
Medical Decision Making: Reviewed Test Results, Independent Historian Assessment, Test Interpretation and Review of Case with other Provider
EKG: Tracing Personally Visualized and interpreted
Echo: Report Reviewed by me
Labs: Labs Reviewed by me
[2024-10-17] MEDS: LASIX 40 MG IV (08:18)
[2024-10-17] MEDS: TEGRETOL 200 MG PO (08:21)
[2024-10-17] MEDS: VITAMIN D3 (cholecalciferol) 50 MCG PO (08:21)
[2024-10-17] MEDS: CRESTOR 20 MG PO (08:21)
[2024-10-17] MEDS: VITAMIN B-12 1000 MCG PO (08:22)
[2024-10-17] MEDS: TOPROL XL 50 MG PO (08:22)
[2024-10-17] MEDS: VITAMIN C 500 MG PO (08:22)
[2024-10-17] MEDS: OSCAL CAL 500 500 MG PO (08:22)
[2024-10-17] MEDS: ELIQUIS 5 MG PO (08:22)
[2024-10-17] MEDS: THERAGRAN 1 TABLET PO (08:22)
[2024-10-17] MEDS: COLACE 100 MG PO (08:22)
[2024-10-17] MEDS: ZESTRIL 20 MG PO (08:22)
[2024-10-17] MEDS: MIRALAX PO (08:28)
--- NOTE | 2024-10-17 11:06 | W.PN.HOSP.TC ---
Today's Communication/Plan
-
monitor vitals
see plan
dc today on PO lasix
jardiance or farxiga per cardiology based on coverage
time of discharge 37 minutes
Assessment / Plan
Assessment / Plan
General: Well Developed, Well Nourished and No Apparent Distress
HEENT: NormoCephalic, Moist mucous membranes and Atraumatic
Respiratory: Clear
Cardiac: S1/S2 and Regular Rhythm; No Murmur or Rub
GI: Soft, Non Tender, Non Distended and Normal Bowel Sounds
Musculoskeletal: (b/l Le edema)
Neuro: AO x 3 and Nonfocal/grossly intact
Psych: Calm
acute hypoxic respiratory insufficiency likely CHF with preserved exacerbation
Now appears to be on room air
now on PO lasix
-strict I &O
-daily weight
-fluid restriction
Cardiology following
Echo 10/14 with EF 50 to 55%
-BNP 2550
likely farxiga or jardiance on dc
#lower abdominal pain likely constipation
-miralax, Colace and Dulcolax added
-ctm
# Permanent AFIB with cardiac pauses
-S/p pacemaker
-Continue metoprolol/Eliquis
# h/o seizure
-carbamazepine continued
#HLD
-statin
CODE STATUS: DNR
DVT prophylaxis: Eliquis
Anticipated Discharge: Today
Subjective/Interval History
-
Date of Service: October 17, 2024
denies pain
Objective Data
-
Labs:
Laboratory Results
10/17/24
06:41
WBC 9.9
Hgb 13.0
Hct 38.7 L
Plt Count 251
Sodium 136
Potassium 3.8
Chloride 95 L
Carbon Dioxide 35 H
BUN 37 H
Creatinine 0.7
Glucose 127 H
Calcium 8.3 L
Vital Signs:
Vital Signs
Temp Pulse Resp BP Pulse Ox
98.6 F 63 22 116/70 93
10/17/24 07:10 10/17/24 08:22 10/17/24 07:10 10/17/24 08:22 10/17/24 08:25
I&O
10/16/24 10/17/24 10/18/24
06:59 06:59 06:59
Intake Total 780 / 780 670 / 670
Output Total 1200 / 1200 1500 / 1500
Balance -420 / -420 -830 / -830
[2024-10-17 11:15] VITALS: BP 102/54
--- NOTE | 2024-10-17 11:34 | W.DCSUMMARY ---
Discharge Summary
Discharge Data
Date of Admission: 10/13/24
Date of Discharge: 10/17/24
-
Pending Results: No
Hospital Course
84-year-old male with past medical history of permanent atrial fibrillation with cardiac pauses status post pacemaker, seizure, CHF, hyperlipidemia came to the hospital with acute hypoxic respite insufficiency likely secondary to CHF exacerbation.
Echocardiogram was done which showed preserved EF of 50 to 55%. Patient was initially treated with IV Lasix which was later transitioned to p.o. Lasix prior to discharge. He was also started on Jardiance on this hospitalization. Once his symptoms
continue to improve and he was weaned off oxygen, he was then discharged home with instructions to follow-up with all his physicians outpatient.
Discharge Plan
-
Patient Disposition: Home with Home Care
Discharge Diagnosis/Procedures: Acute on chronic CHF with preserved EF
Permanent atrial fibrillation
Diet: As tolerated and Low Sodium
Activity: As tolerated
Driving Restrictions: As prior to admission
Bathing Restrictions: None
Specialty Instructions: Weigh Daily- Call MD for wt gain/loss 3 lbs overnight/5 lbs in 1 week
Activity Restrictions/Additional Instructions:
lasix 40mg PO daily. Increase to BID for weight gain >3lb overnight or >5lb in one week. Call cardiology office if weight >190lb
Instructions: *CBC Heart Failure Instructions
Referrals:
Rut Chaudhry MD [Family Provider] - in less than 1 week
Cash Moreno MD [Active] - in one to two weeks
Prescriptions:
New
polyethylene glycol 3350 17 gram Powder In Packet
17 g PO DAILY Qty: 0 0RF
Jardiance 10 mg tablet
10 mg PO DAILY Qty: 30 0RF
Continued
cyanocobalamin (vitamin B-12) 1,000 MCG tablet
1,000 mcg PO DAILY
ascorbic acid (vitamin C) [Vitamin C] 500 MG tablet
500 mg PO DAILY
Eliquis 5 MG tablet
5 mg PO BID
carbamazepine 200 MG tablet
200 mg PO TID
metoprolol succinate 50 mg tablet extended release 24 hr
50 mg PO DAILY
acetaminophen 500 mg Tablet
1,000 mg PO BID
calcium carbonate 500 mg calcium (1,250 mg) Tablet
500 mg PO DAILY
nitroglycerin 0.4 mg tablet, sublingual
0.4 mg sublingual [id number] PRN (Reason: chest pain)
rosuvastatin 20 mg tablet
20 mg PO DAILY
furosemide 40 mg Tablet
40 mg PO DAILY Qty: 30 0RF
cabergoline 0.5 mg Tablet
1 mg PO MOTH Qty: 0
docusate sodium 100 mg Capsule
100 mg PO BID Qty: 30 0RF
lisinopril 20 mg Tablet
20 mg PO DAILY
therapeutic multivitamin Tablet
1 tab PO DAILY
cholecalciferol (vitamin D3) [Vitamin D3] 50 mcg (2,000 unit) Tablet
50 mcg PO DAILY
Discharge Orders:
Discharge Patient (As Directed); Ordered 10/17/24
Ordered By: Lul Perez
Discharge Date and Time
Discharge Date/Time: 10/17/24 15:21
Print Language: UPPER SORBIAN
[2024-10-17 13:14] VITALS: PULSE 60; O2SAT 95
[2024-10-17 14:43] VITALS: BP 110/59
--- NOTE | 2024-10-17 15:14 | CM ---
MD entered discharge order .
Pt ready for discharge .
Spoke [facility] patient care secretary and pt . They agree with dc.
He requested [facility] set up .
IMM reviewed with both and both agree with dc.
PLAN Home with [facility] and hospice patient care secretary
--- NOTE | 2024-10-17 15:39 | VNURNOTE ---
Home Health Liaison spoke with patient's friend Pinky, who was in the process of taking patient home. Patient recently had [facility]. Discussed [facility] nurse/therapy, visits, schedule and homebound status. Both are agreeable and understands that visits at
home will be 2-3 x per week to assess and teach medical management. They are aware that [facility] will contact them for start of care in 1-2 days after discharge from . Pinky confirmed that patient has a scale at home. [facility] referral completed in
Care Port.
--- NOTE | 2024-10-20 10:59 | W.HF.CON ---
Heart Failure
- LV Function
Left ventricular function study result: LV Ejection fraction >/= 50%
Ejection Fraction Percentage: 50-55
- ARNI
Patient already on ARNI: No
Heart Failure ARNI Not Indicated: LV Ejection Fraction >/= 40%
- ACEI/ARB
Patient already on ACEI/ARB: Yes
- Beta Karmen
Patient already on Evidence Based Beta Karmen: Yes
- Mineralocorticord Receptor Antagonist
Patient already on MRA: No
Heart Failure MRA Not Indicated: LV Ejection Fraction > 40%
- SGLT-2 Inhibitor
Patient already on SGLT-2 Inhibitor: Yes
- Afib Anticoagulation
Patient already on Anticoagulation for Afib: Yes
- NYHA CHF Classification
NYHA CHF Classification Level: Class III - Symptoms w/ min exertion, interferes w/ nml daily activity
- ACC/AHA Stage
ACC/AHA Stage: Stage C: Symptomatic Heart Failure
== END 2024-10-17 15:21 | disposition home health service (06) | DRG 291 ==
LOC: 4 EAST ACU 21:37
PROVIDERS: Registered Nurse; ADMITTING PHYSICIAN Hospitalist; ATTENDING PHYSICIAN Internal Medicine; EMERGENCY PHYSICIAN Emergency Medicine; FAMILY PHYSICIAN Family Medicine; OTHER PHYSICIAN Internal Medicine Cardiovascular Disease
DX: I11.0 Hypertensive heart disease with heart failure (principal); I50.33 Acute on chronic diastolic (congestive) heart failure; I48.21 Permanent atrial fibrillation; J98.11 Atelectasis; R06.89 Other abnormalities of breathing; R09.02 Hypoxemia; E78.00 Pure hypercholesterolemia, unspecified; I25.10 Atherosclerotic heart disease of native coronary artery without angina pectoris; G40.909 Epilepsy, unspecified, not intractable, without status epilepticus; K59.00 Constipation, unspecified; R10.30 Lower abdominal pain, unspecified; I77.810 Thoracic aortic ectasia; I08.3 Combined rheumatic disorders of mitral, aortic and tricuspid valves; Z66 Do not resuscitate; Z95.1 Presence of aortocoronary bypass graft; Z79.01 Long term (current) use of anticoagulants; Z95.0 Presence of cardiac pacemaker
CPT/HCPCS: 93308; 71046; 80048; 80053; 80061; 83735; 83880; 84443; 84484; 85025; 85027; 93005; 93321; 93325; 96374; 97116; 97163; 97166; 97530; 99285

== ENCOUNTER → 2024-11-21 10:47 | Outpatient (REF) | payer MEDICARE, BC, SELFPAY ==
[2024-11-21 12:02] LABS: % Basophils 1.1 % (0-2); % Eosinophils 3.8 % (0-6); % Immature Granulocytes 0.5 % (0-0.5); % Monocytes 12.3 % (1.7-9.3); % Neutrophils 64.3 % (42.2-75.2); Absolute Basophils 0.1 10^3/uL (0-0.2); Absolute Eosinophils 0.3 10^3/uL (0-0.7); Absolute Lymphocytes 1.6 10^3/uL (1.2-3.4); Absolute Monocytes 1.1 10^3/uL (0.1-0.6); Absolute Neutrophils 5.6 10^3/uL (1.4-6.5); Hemoglobin 13.4 g/dL (13.0-18.0); Mean Corp Hgb Conc. 32.7 g/dL (33.0-37.0); Mean Corpuscular Hgb 30.3 pg (27.0-31.0); Mean Corpuscular Volume 92.8 fL (80.0-94.0); Mean Platelet Volume 9.6 fL (7.4-10.4); Nucleated Red Blood Cells % 0 % (-); Platelet Count 256 10^3/uL (130-400); Red Blood Cell Count 4.42 10^6/uL (4.70-6.10); Red Cell Dist. Width 14.6 % (11.5-14.5); White Blood Cell Count 8.7 10^3/uL (4.8-10.8)
[2024-11-21 13:02] LABS: ALT (SGPT) 30 U/L (0-50); AST (SGOT) 27 U/L (17-59); Alkaline Phosphatase 174 U/L (38-126); Blood Urea Nitrogen 25 mg/dl (9-20); Calcium 9.2 mg/dl (8.4-10.2); Carbon Dioxide 35 mmol/L (22-30); Chloride 97 mmol/L (98-107); Glucose 96 mg/dl (70-99); Phosphorus 4.3 mg/dl (2.5-4.5); Potassium 5.3 mmol/L (3.5-5.1); Sodium 138 mmol/L (135-145); Total Bilirubin 0.7 mg/dl (0.2-1.3); Total Protein 6.7 g/dl (6.3-8.2); eGFR > 60.00
[2024-11-21 13:20] LABS: NT-proBNP 4410 pg/ml
[2024-11-21 13:22] LABS: FSH 1.1 mIU/ml (1.55-9.74); Luteinizing Hormone 1.33 mIU/ml (1.24-7.80); Prolactin 10.7 ng/ml (3.7-17.9)
[2024-11-21 13:36] LABS: TSH 2.38 uIU/ml (0.47-4.68)
[2024-11-21 13:37] LABS: Testosterone, Total 31.8 ng/dl (72-623)
[2024-11-21 13:39] LABS: Cortisol, Random 13.5 ug/dl
== END ==
LOC: REG 10:47
PROVIDERS: ATTENDING PHYSICIAN Internal Medicine Endocrinology, Diabetes & Metabolism; FAMILY PHYSICIAN Internal Medicine; OTHER PHYSICIAN Ophthalmology; OTHER PHYSICIAN Student in an Organized Health Care Education/Training Program; REFERRING PHYSICIAN Ophthalmology
DX: D35.2 Benign neoplasm of pituitary gland (principal); I50.9 Heart failure, unspecified; I48.20 Chronic atrial fibrillation, unspecified; I10 Essential (primary) hypertension; I25.10 Atherosclerotic heart disease of native coronary artery without angina pectoris
CPT/HCPCS: 36415; 80053; 82533; 83001; 83002; 83880; 84100; 84146; 84403; 84439; 84443; 85025

== ENCOUNTER 2024-12-07 17:52 | Inpatient (IN) | payer MEDICARE, BC, SELFPAY ==
[2024-12-07] VITALS (7 sets, daily range): BP systolic 109–156; BP diastolic 67–83; BMI 26.5
--- NOTE | 2024-12-07 14:22 | ED.GENMED ---
History of Present Illness
General
Chief Complaint: Breathing Problem
Source: patient and family
Exam Limitations: none
Time Seen by Provider: 12/07/24 14:07
Nursing documentation reviewed up to this point in time: agreed with
History of Present Illness
History of Present Illness:
84-year-old male subacute onset of shortness of breath cough dyspnea exertion history of heart failure bypass surgery is on diuretic he is diabetic he is on Eliquis never smoker no fevers ate breakfast okay today has not been eating well lately
though
Past History
Past History
ED Past Medical History: CAD, CHF, HTN, Hypercholesterolemia and Seizures
ED Past Surgical History: Cardiac
Social History
Tobacco: Non-smoker
Alcohol: None
Drug: None
Personal:
Living: with family
Employment: Retired
Review of Systems
Review of Systems
All Other Systems: Not applicable
Constitutional: Reports weight gain and fatigue; Denies fever
Respiratory: Reports cough and trouble breathing
Cardiac: Denies chest pain, palpitations or syncope
ABD/GI: Reports no symptoms
: Reports no symptoms
Musculoskeletal: Reports no symptoms
Skin: Reports no symptoms
Phy Exam
Physical Exam
Physical Exam:
Physical Exam
General: Dyspneic appearing elderly
Neck: No jaundice
Heart: Regular
Lungs: Tachypneic bibasilar crackle
Abdomen: Distended not
Neuro: alert and oriented. no focal neurological deficits
Skin: no rash
Psychiatric: well kept. interactive and cooperative
Extremities: 1+ edema
Scores
Heart Failure Risk
Heart Failure Risk Score: Yes
History of Stroke or TIA: No
History of intubation for respiratory distress: No
Heart rate on ED arrival >/= 110: Yes
SaO2 <90% on arrival on room air: Yes
HR >/=110 during 3min walk test (or too ill to perform test): Yes
ECG has acute ischemic changes: No
Urea >/=12mmol/L (BUN 33.6mg/dL): No
Serum CO2>/=35mmol/L: No
Troponin I or T elevated to NM Level (0.4mg/dL): No
NT-proBNP >/=5,000ng/L (5,000pg/ml): Yes
HF Risk Score: 4
Admission Status: HIGH RISK 26.1% Consider SNF treatment or admission to hospital
Course
Orders/Labs/Results
Orders:
Orders
12/07/24 14:18
Electrocardiogram (*1) Stat
Reason for Study: Other
Other Reason for Exam: chest pain
Cardiac Monitoring- Treatment ONCE
EKG- Treatment ONCE
IV Insert/Care/Rem.- Treatment PRN
CR Chest - 2 Views Urgent
Comment:
Reason For Exam: soob
O2 Therapy [RESP] Stat
Titrate/Wean O2 to maintain O2 sat greater than (%): 96
12/07/24 14:19
Add On- LAB Urgent
Tests Added?: tegretol
12/07/24 15:42
Complete Blood Count/With Diff Urgent
Comprehensive Metabolic Panel Urgent
Magnesium Urgent
NT-proBNP Urgent
TSH Urgent
Tegretol (Carbamazepine) Urgent
Troponin I Urgent
12/07/24 16:25
Furosemide [Lasix] 80 mg IV NOW STA
Abnormal Lab Results
12/07/24
15:42
MCHC 32.3 L g/dL
(33.0-37.0)
RDW 14.6 H %
(11.5-14.5)
Abs Immat Gran (auto) 0.1 H 10^3/uL
(0-0.05)
Absolute Monos (auto) 1.4 H 10^3/uL
(0.1-0.6)
Monocytes % 14.7 H %
(1.7-9.3)
Carbon Dioxide 36 H mmol/L
(22-30)
BUN 33 H mg/dl
(9-20)
Glucose 104 H mg/dl
(70-99)
Alkaline Phosphatase 161 H U/L
(38-126)
Troponin I 0.071 H* ng/ml
12/07/24 15:42
12/07/24 15:42
Vital Signs
Initial and Last Documented VS:
Initial Vital Signs
Temp Pulse Resp BP Pulse Ox
97.5 F 67 22 109/67 87
12/07/24 13:49 12/07/24 13:49 12/07/24 13:49 12/07/24 13:49 12/07/24 13:49
Last Documented Vital Signs
Temp Pulse Resp BP Pulse Ox
97.5 F 62 29 144/75 95
12/07/24 13:49 12/07/24 16:45 12/07/24 16:45 12/07/24 16:00 12/07/24 16:45
MDM/Problems Addressed
Differential Diagnosis Includes:
Heart failure pneumonia pulmonary edema less likely PE as he is anticoagulated
MDM/Problems Addressed:
Shortness of breath
Chronic conditions affecting care: CAD and Cardiomyopathy
Acute Exacerbation and/or Progression of Chronic Illness: CAD and Cardiomyopathy
*Radiology
Radiology exam reviewed: preliminary read by ED provider
*Pulse Oximetry
Patient hypoxic: yes
*EKG
Interpretation: abnormal
Comparison EKG: no comparison EKG present
Heart Rate: 78
Rate: normal
Rhythm: sinus
Ischemia: non-specific ST changes
*Paint Pourer Interpretation
Rate: normal
Interpretation: normal
Heart Rate: 78
Rhythm: ventricular paced
*Critical Care Note
Total Time (30-74mins, 75-104mins- exclusive of procedures): 13
Update Note
Update Note:
4:30 PM labs noted chest x-ray report noted suspect this is more volume issue than infectious will start with IV diuretic is requiring oxygen will require admission
ED Attending Note
-
Portions of this chart may have been created with voice recognition software.� Occasional wrong word or��sound alike� substitutions may have occurred due to the inherent limitations of voice recognition software.
Discharge Plan
Departure
Patient Disposition: Admit
Date of Disposition: 12/07/24
Time of Disposition: 16:27
Admit to: Telemetry
Presentation/result/management discussed w/ accepting MD/DO: Hospitalist
Patient with high blood pressure during this ER visit?: No
Condition: Fair
Covid-19: Not Applicable
Discharge Problem:
Permanent atrial fibrillation, Acute on chronic heart failure with preserved ejection fraction (HFpEF), (HFpEF) heart failure with preserved ejection fraction, Hypoxia, Congestive heart failure (CHF), Respiratory insufficiency, Hypertensive heart
disease with heart failure
Prescriptions:
No Action
cyanocobalamin (vitamin B-12) 1,000 MCG tablet
1,000 mcg PO DAILY
ascorbic acid (vitamin C) [Vitamin C] 500 MG tablet
500 mg PO DAILY
Eliquis 5 MG tablet
5 mg PO BID
carbamazepine 200 MG tablet
200 mg PO TID
metoprolol succinate 50 mg tablet extended release 24 hr
50 mg PO DAILY
acetaminophen 500 mg Tablet
1,000 mg PO BID
calcium carbonate 500 mg calcium (1,250 mg) Tablet
500 mg PO DAILY
nitroglycerin 0.4 mg tablet, sublingual
0.4 mg sublingual [id number] PRN (Reason: chest pain)
rosuvastatin 20 mg tablet
20 mg PO DAILY
furosemide 40 mg Tablet
40 mg PO DAILY Qty: 30 0RF
cabergoline 0.5 mg Tablet
1 mg PO MOTH Qty: 0
docusate sodium 100 mg Capsule
100 mg PO BID Qty: 30 0RF
lisinopril 20 mg Tablet
20 mg PO DAILY
therapeutic multivitamin Tablet
1 tab PO DAILY
cholecalciferol (vitamin D3) [Vitamin D3] 50 mcg (2,000 unit) Tablet
50 mcg PO DAILY
polyethylene glycol 3350 17 gram Powder In Packet
17 g PO DAILY Qty: 0 0RF
Jardiance 10 mg tablet
10 mg PO DAILY Qty: 30 0RF
Referrals:
Jamil Villagomez MD [Family Provider] -
Interventions
Interventions:
*Risk Screen - Suicide Last Done: 12/07/24 13:49
*General Assessment Last Done: 12/07/24 13:49
*Neglect/Abuse Screening Last Done: 12/07/24 13:49
*ED- Fall Risk Assessment Last Done: 12/07/24 15:56
*ED COVID-19 Vaccine History Last Done: 12/07/24 15:56
ED- Cardiac Assessment Last Done: 12/07/24 15:56
ED- Pulmonary Assessment Last Done: 12/07/24 15:56
Discharge Date and Time
Print Language: YORUBA
[2024-12-07 15:51] LABS: % Basophils 1.1 % (0-2); % Eosinophils 3.3 % (0-6); % Immature Granulocytes 0.5 % (0-0.5); % Lymphocytes 22.1 % (20.5-51.1); % Monocytes 14.7 % (1.7-9.3); % Neutrophils 58.3 % (42.2-75.2); Absolute Basophils 0.1 10^3/uL (0-0.2); Absolute Eosinophils 0.3 10^3/uL (0-0.7); Absolute Immature Granulocytes 0.1 10^3/uL (0-0.05); Absolute Monocytes 1.4 10^3/uL (0.1-0.6); Absolute Neutrophils 5.4 10^3/uL (1.4-6.5); Hematocrit 43.6 % (39.0-52.0); Hemoglobin 14.1 g/dL (13.0-18.0); Mean Corp Hgb Conc. 32.3 g/dL (33.0-37.0); Mean Corpuscular Hgb 29.6 pg (27.0-31.0); Mean Corpuscular Volume 91.4 fL (80.0-94.0); Mean Platelet Volume 9.7 fL (7.4-10.4); Nucleated Red Blood Cells % 0 % (-); Platelet Count 254 10^3/uL (130-400); Red Blood Cell Count 4.77 10^6/uL (4.70-6.10); Red Cell Dist. Width 14.6 % (11.5-14.5); White Blood Cell Count 9.2 10^3/uL (4.8-10.8)
[2024-12-07 16:06] LABS: ALT (SGPT) 39 U/L (0-50); AST (SGOT) 30 U/L (17-59); Albumin 3.5 g/dl (3.5-5.0); Alkaline Phosphatase 161 U/L (38-126); Blood Urea Nitrogen 33 mg/dl (9-20); Calcium 8.7 mg/dl (8.4-10.2); Carbon Dioxide 36 mmol/L (22-30); Chloride 100 mmol/L (98-107); Glucose 104 mg/dl (70-99); Magnesium 2.2 mg/dl (1.6-2.3); Potassium 3.8 mmol/L (3.5-5.1); Sodium 142 mmol/L (135-145); Total Bilirubin 0.4 mg/dl (0.2-1.3); Total Protein 6.3 g/dl (6.3-8.2); eGFR > 60.00
[2024-12-07 16:07] LABS: Tegretol (Carbamazepine) 9.5 ug/ml (4-12)
[2024-12-07 16:21] LABS: NT-proBNP 8840 pg/ml; Troponin I 0.071 ng/ml
[2024-12-07 16:35] LABS: TSH 2.65 uIU/ml (0.47-4.68)
--- NOTE | 2024-12-07 16:52 | HPS.HSE ---
Addendum entered and electronically signed by Verónica Moreno MD 12/07/24 23:11:
Procalcitonin negative - will stop antibiotics
Original Note:
Family Physician
-
Family Physician: Jamil Villagomez
Chief Complaint
-
shortness of breath
History of Present Illness
Mr. Javi Sage is a 84 yo man with hx CAD, CHF, PPM, HTN, HLD, seizures who presents to the ER with shortness of breath.
Patient is a poor historian, seen with partner at bedside. She reports that over past week patient has been increasingly short of breath. Since last hospitalization they had stopped Jardiance but then went back on it which helped. She wanted him
to go to the ER several days ago but he refused. He was agreeable today. He has not been sleeping well given frequent urination. He has had increased fatigue, more than prior CHF exacerbations. He weighs himself daily and has been +1 -3 pounds
then loses it.
Chronic lower extremity swelling, left > right. No fevers/chills. No significant cough.
Intermittent abdominal discomfort, he currently denies significant pain. No nausea/vomiting/diarrhea.
Medical History
Past Medical History
Past Medical History: Reports Other
Additional Past Medical History:
Hyperlipidemia
A-fib
Mitral regurgitation
Hypertension
Coronary artery disease
Routine ovarian occlusion
Seizure
Pleural effusion
Spinal stenosis
Pleural effusion
Hyponatremia
Past Surgical History: Reports Other
Additional Past Surgical History:
Coronary artery bypass graft x 4
Carpal tunnel surgery
Cataract extraction
[place] tooth extraction
Social History
Tobacco: Non-smoker
Alcohol: Occasional
Drug: None
Family History
Family History: Not pertinent
Allergies / Home Medications
Allergies reflects when Allergies were last updated in [facility].
Home Medications with original date entered in [facility]
Allergy/Medication List:
*awaiting med rec
Review of Systems
-
History Source: Patient
A 12 point ROS was completed and negative except as noted: Yes
Physical Exam
Vital Signs
Vital Signs
Temp Pulse Resp BP Pulse Ox
97.5 F 76 33 151/80 97
12/07/24 13:49 12/07/24 15:45 12/07/24 15:45 12/07/24 15:43 12/07/24 15:56
Physical Exam
General: Appears Chronically Ill
HEENT: PERRLA
Respiratory: Decreased Breath Sounds (bases); No Wheezes
Cardiac: S1/S2 and Regular Rhythm
GI: Soft and Non Tender
Musculoskeletal: Other (b/l edema, Left pedal edema > right )
Skin: Warm and Dry; No Rash
Neuro: AO x 3
Psych: Calm
Laboratory Results
-
12/07/24 15:42
12/07/24 15:42
Laboratory Results
Total Bilirubin 0.4 mg/dl (0.2-1.3) 12/07/24 15:42
AST 30 U/L (17-59) 12/07/24 15:42
ALT 39 U/L (0-50) 12/07/24 15:42
Alkaline Phosphatase 161 U/L (38-126) H 12/07/24 15:42
Troponin I 0.071 ng/ml H* 12/07/24 15:42
Data Reviewed
-
Diagnostic Radiology: Report Reviewed by me
Lab Data: Labs Reviewed by me
Impression/Plan
-
Mr. Javi Sage is a 84 yo man with hx CAD, CHF, PPM, HTN, HLD, seizures who presents to the ER with shortness of breath. He has elevated BNP and appears fluid overloaded on exam with swelling and elevated JVP. CXR with possible pneumonia and
patient with significant increased fatigue. Will start antibiotics and follow up procal.
Triage VS: T 97.5, P 67, RR 22, BP 109/67, SpO2 87%
LABS: WBC 9.2, Hg 14.1, PLT 254, Na 142, K+ 3.8, CO2 36, BUN 33, Cr 0.8, Glucose 104, T. Bili 0.4, AST 30, ALT 39, Trop 0.071, BNP 8840
CXR
IMPRESSION:
Small to moderate right pleural effusion with associated atelectasis and/or pneumonia.
MAR: Lasix 80mg IV x 1
Heart Failure preserved EF Acute Exacerbation
-TTE 10/14/24 with EF 50-55%; mild to moderate AR, mild , mild to moderate TR
-recently admitted 10/28 for CHF exacerbation
-admit patient to telemetry
-s/p Lasix 80mg IV x 1; continue 40mg IV BID
-daily weights, strict I/O
-Cardiology consult
-*awaiting med rec
Community Acquired Pneumonia
-start Ceftriaxone/Azithromycin
-follow up procal, stop antibiotics if WNL
Non ischemic myocardial injury
-2/2 above, trend Troponin
CAD
-s/p CABG
-SENIOR JAVA ENGINEER Eliquis
Hx PPM
Hx Seizures
-*awaiting home med rec
DVT PPx SENIOR JAVA ENGINEER eliquis
DNR
76 minutes spent on patient care
[2024-12-07] MEDS: LASIX 80 MG IV (16:56)
[2024-12-07] MEDS: ZITHROMAX 500 MG PO (17:58)
[2024-12-07 18:27] LABS: COVID-19 Antigen Negative (Negative)
--- NOTE | 2024-12-07 19:36 | PTCARENOTE ---
Patient arrived at change of shift. AAOx2-3 forgetful. Bed alarm applied. Patient educated to use call sykes for assist. Call sykes within reach. 02 @ 2 liters but patient 88% and SOB. 02 in creased to 4 liters with 91% at current time but patient
insists on talking despite education to focus on breathing.
[2024-12-07] MEDS: MUCINEX 600 MG PO (20:07)
[2024-12-07] MEDS: ELIQUIS 5 MG PO (20:07)
[2024-12-07] MEDS: FLUSH (NSS) 1 FLUSH IV (20:07)
[2024-12-07] MEDS: STERILE WATER FOR INJECTION 10 ML IV (20:08)
[2024-12-07] MEDS: ROCEPHIN 1000 MG IV (20:08)
[2024-12-07 21:54] LABS: Troponin I 0.057 ng/ml
[2024-12-07 21:55] LABS: Procalcitonin < 0.05 ng/ml (0.0-0.25)
[2024-12-07] MEDS: TEGRETOL 200 MG PO (22:20)
[2024-12-08 03:32] VITALS: BP 127/68
[2024-12-08 04:24] LABS: Hematocrit 41.1 % (39.0-52.0); Hemoglobin 13.4 g/dL (13.0-18.0); Mean Corp Hgb Conc. 32.6 g/dL (33.0-37.0); Mean Corpuscular Hgb 29.7 pg (27.0-31.0); Mean Corpuscular Volume 91.1 fL (80.0-94.0); Mean Platelet Volume 9.5 fL (7.4-10.4); Platelet Count 250 10^3/uL (130-400); Red Blood Cell Count 4.51 10^6/uL (4.70-6.10); Red Cell Dist. Width 14.6 % (11.5-14.5); White Blood Cell Count 9.9 10^3/uL (4.8-10.8)
[2024-12-08 04:44] LABS: Blood Urea Nitrogen 35 mg/dl (9-20); Calcium 8.4 mg/dl (8.4-10.2); Carbon Dioxide 37 mmol/L (22-30); Chloride 100 mmol/L (98-107); Estimated Creatinine Clearance 86 ml/min; Glucose 94 mg/dl (70-99); Magnesium 2.1 mg/dl (1.6-2.3); Potassium 3.8 mmol/L (3.5-5.1); Sodium 143 mmol/L (135-145); eGFR > 60.00
[2024-12-08 05:00] LABS: Troponin I 0.041 ng/ml
[2024-12-08 05:21] VITALS: BMI 25.3
[2024-12-08 07:00] VITALS: BP 120/61
--- NOTE | 2024-12-08 08:08 | CON.CAR ---
Addendum entered and electronically signed by Clint Chow MD 12/08/24 14:41:
84 yo male with PMH of chronic HFPEF, CAD/CABG, permanent A fib on eliquis, leadless PPM is admitted with SOB. We are consulted for acute on chronic HFPEF. Exam with irregular rhythm, II/IV systolic murmur at RUSB, trace LE edema. Cr 0.7. Tele: A
fib, occasional V paced.
Acute on chronic HFPEF. Severe, requiring hospitalization, and IV diuretics, with close monitor of labs, tele. Continue IV lasix. Check echo.
Original Note:
Consultation
Consultation Request
Date/Time Consultation Requested: 12/07/2024 18:45
Date/Time Consultation Performed: 12/08/2024 08:05
Requesting Provider: Dr. Moreno
Performing Provider: KIRSTY Umana for Dr. Chow
Reason for Consultation: Acute on chronic heart failure
Medical History
-
Chief Complaint: sob
History of Present Illness:
Mr. Sage is an 84 year old male (known to Dr. Moreno, his primary fiscal specialist) with HFpEF, CAD s/p CABG, permanent atrial fibrillation on Eliquis, PPM (T Kiara neri), HTN, dyslipidemia, seizure disorder, and pituitary macroadenoma who
presented to the ER with shortness of breath. This had been ongoing for about one week. No significant weight gain. He was briefly off of Jardiance, he thought it was contributing to fatigue. He was found to be hypoxic. He is on the hospitalist
service. Cardiology was consulted for acute on chronic heart failure. He was also diagnosed with CAP. He has been more fatigued. He has not been eating well at home.
Past Medical History
Past Medical History: Arrhythmias (permanent atrial fibrillation [on Eliquis]), CAD, CHF, HTN, Hypercholesterolemia, Seizures and Valvular Disease (MR, AR, TR)
Past Surgical History: Cardiac (CABG, MDT Micra leadless PPM 09/01/24) and Orthopedic
Social History
Tobacco: Non-Smoker
Alcohol: None
Personal: Partner (Pinky)
Employment: Retired
Family History
Family History: Reviewed & Not Pertinent
Allergies / Home Medications
Allergy/AdvReac Type Severity Reaction Status Date / Time
No Known Allergies Allergy Verified 12/07/24 13:48
�Medication �Instructions �Recorded �Confirmed �Type
ascorbic acid (vitamin C) 500 mg 500 mg PO DAILY Supplement 07/19/16 12/07/24 History
tablet (Vitamin C)
cyanocobalamin (vitamin B-12) 1,000 mcg PO DAILY Supplement 07/19/16 12/07/24 History
1,000 mcg tablet
apixaban 5 mg tablet (Eliquis) 5 mg PO BID Blood clot 10/02/21 12/07/24 History
prevention/tx
carbamazepine 200 mg tablet 200 mg PO TID Seizures 10/02/21 12/07/24 History
acetaminophen 500 mg tablet 1,000 mg PO BID 12/14/23 12/07/24 History
calcium carbonate 500 mg PO DAILY Supplement 12/14/23 12/07/24 History
metoprolol succinate 50 mg 50 mg PO DAILY Blood Pressure 12/14/23 12/07/24 History
tablet,extended release 24 hr
nitroglycerin 0.4 mg sublingual 0.4 mg sublingual [id number] PRN 12/14/23 12/07/24 History
tablet chest pain
rosuvastatin 20 mg tablet 20 mg PO DAILY High Cholesterol 12/14/23 12/07/24 History
furosemide 40 mg tablet 40 mg PO DAILY #30 tabs 08/03/24 12/07/24 Rx
cabergoline 0.5 mg tablet 1 mg PO MOTH ##0 08/28/24 12/07/24 History
cholecalciferol (vitamin D3) 50 50 mcg PO DAILY 10/13/24 12/07/24 History
mcg (2,000 unit) tablet (Vitamin
D3)
lisinopril 20 mg tablet 20 mg PO DAILY 10/13/24 12/07/24 History
therapeutic multivitamin 1 tab PO DAILY 10/13/24 12/07/24 History
empagliflozin 10 mg tablet 10 mg PO DAILY #30 tabs 10/17/24 12/07/24 Rx
(Jardiance)
Balance Of Nature Fruits 3 cap PO DAILY 12/07/24 12/07/24 History
Balance Of Nature Veggies 3 cap PO DAILY 12/07/24 12/07/24 History
dextromethorphan-guaifenesin 30 1 tab PO HS 12/07/24 12/07/24 History
mg-600 mg tablet extended
[id number] hr (Mucinex DM)
docusate sodium 100 mg capsule 100 mg PO DAILYPRN PRN constipation 12/07/24 12/07/24 History
guaifenesin 600 mg tablet, 600 mg PO DAILY 12/07/24 12/07/24 History
extended release 12 hr (Mucinex)
magnesium oxide 400 mg PO DAILY 12/07/24 12/07/24 History
Review of Systems
-
History Source: Patient
All other systems: Negative unless noted
Constitutional: Fatigue
EENT: No Symptoms
Respiratory: Cough and Trouble Breathing
Cardiac: No Symptoms
Abdomen/GI: No Symptoms
: No Symptoms
Musculoskeletal: No Symptoms
Skin: No Symptoms
Neurological: Weakness
Endocrine: No Symptoms
Hematologic/Lymphatic: No Symptoms
Physical Exam
Vital Signs
Temp Pulse Resp BP Pulse Ox
97.5 F 85 22 120/61 96
12/08/24 07:00 12/08/24 07:00 12/08/24 07:00 12/08/24 07:00 12/08/24 07:00
Lab Results
12/08/24 04:07
12/08/24 04:07
Troponin I 0.041 ng/ml H* D 12/08/24 04:07
Cku-V-Sdbladbpsnh Pept 8840 pg/ml 12/07/24 15:42
Physical Exam
General: Well Developed, Well Nourished, No Apparent Distress and Comfortable
HEENT: Normocephalic, Anicteric and Moist Mucous Membranes
Respiratory: Clear, Rhonchi and Non Labored Respirations
Cardiac: S1/S2, Irregular Rhythm, Murmur and Peripheral Edema (+1 B/L LE)
Breast: Deferred by me
GI: Soft, Non Tender, Non Distended and Normal Bowel Sounds
Rectal: Deferred by Provider
Genito-urinary: No Costovertebral Tender
Musculoskeletal: No Clubbing and No Cyanosis
Skin: Warm and Dry
Neuro: AO x 3
Psych: Calm
Impression / Plan
-
I/P: 84M with HFpEF, CAD s/p CABG, permanent atrial fibrillation on Eliquis, PPM (MDT Kiara neri), HTN, dyslipidemia, seizure disorder, and pituitary macroadenoma who presented to the ER with acute on chronic HF
Outpatient fiscal specialist: Dr. Moreno
Acute hypoxic respiratory failure, in the setting of HFpEF & PNA
-Diuresis with furosemide, antibiotics per primary
-Currently on 4L NC, wean as tolerated
HFpEF, acute on chronic
-Diuresis with furosemide 40mg IV BID
-He is on Jardiance at home, he reports it causes fatigue, trial Farxiga here
-Trend daily weight, I/O, and BMP with diuresis
-HF education
-Follow up echocardiogram given hypoxia
CAP, per primary
Abnormal troponin, non ischemic myocardial injury in the setting of acute heart failure & acute illness (PNA)
-Peak 0.071 at arrival & trended down
-Chest pain free
Permanent atrial fibrillation
-Rate controlled on metoprolol succinate
-No plan for rhythm control
-Oral Anticoagulation: Apixaban 5mg BID, he denies missed doses and abnormal bleeding
-[id number]: score at least 5 (Heart failure, HTN, age 75 or more, Vascular disease)
CAD S/P CABG (2015)
-Stable without chest pain
-No role for ASA given systemic AC
-Continue current medical therapy
HTN, stable, follow with diuresis
Valvular heart disease
-Mild to moderate mitral regurgitation
-Mild aortic stenosis
-Mild aortic regurgitation
-Mild to moderate tricuspid regurgitation
SSS S/P Micra Leadless PPM, TRAUMA SURGEON 86%, continue outpatient monitoring in device clinic
Pituitary adenoma, on cabergoline
Seizure disorder
SUBJECTIVE:
As above.
Data Reviewed
-
EKG: Report Reviewed by me (V paced rhythm with underlying atrial fibrillation)
Radiology: Report Reviewed by me (CXR: Small to moderate right pleural effusion with associated atelectasis and/or pneumonia.)
Medical Tests (Nuc Med, Echo etc): Report Reviewed by me (Echocardiogram as above)
Labs: Labs Reviewed by me
Old Records: Reviewed
--- NOTE | 2024-12-08 08:21 | W.PN.HOSP.TC ---
Today's Communication/Plan
-
Continue IV diuresis
Daily weights, I's and O's
Assessment / Plan
Assessment / Plan
Physical Exam
General: Appears Chronically Ill
HEENT: Normocephalic
Respiratory: Clear to Auscultation Bilaterally
Cardiac: S1/S2 and Irregular Rhythm
GI: Soft and Non Tender
Musculoskeletal: Other (b/l 1+ lower extremity edema)
Skin: Warm and Dry
Neuro: AAO x 3
Psych: Calm
Assessment/Plan
84 y/o male with past medical history of CAD, CHF, PPM, HTN, HLD, and seizures who presented to the ER with shortness of breath. He was noted to have elevated BNP and appears fluid overloaded on exam with swelling and elevated JVP. CXR with
possible pneumonia and patient with significantly increased fatigue.
Triage VS: T 97.5, P 67, RR 22, BP 109/67, SpO2 87%
LABS: WBC 9.2, Hg 14.1, PLT 254, Na 142, K+ 3.8, CO2 36, BUN 33, Cr 0.8, Glucose 104, T. Bili 0.4, AST 30, ALT 39, Trop 0.071, BNP 8840
CXR
IMPRESSION:
Small to moderate right pleural effusion with associated atelectasis and/or pneumonia.
MAR: Lasix 80mg IV x 1
Severe Acute on Chronic Heart Failure preserved EF Exacerbation
Fatigue associated with CHF exacerbation
-Per reports, patient's partner wanted patient to go to the ER several days prior, but patient refused to do so
-TTE 10/14/24 with EF 50-55%; mild to moderate AR, mild , mild to moderate TR
-recently admitted 10/28 for CHF exacerbation
-admit patient to telemetry
-s/p Lasix 80mg IV x 1; continue Lasix 40mg IV BID
-daily weights, strict I/O
-Cardiology consult
-Last hospitalization Jardiance was stopped, but then went back on it which helped --> patient reported Jardiance causes him Fatigue, switched to Farxiga
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
On Chest X-Ray: Small to moderate right pleural effusion likely extending into the right minor fissure. Cannot exclude right basilar opacification such as atelectasis and/or pneumonia
-Procalcitonin negative - antibiotics (Ceftriaxone/Azithromycin) stopped on December 07, 2024 evening
Non ischemic myocardial injury
-2/2 above, trend Troponin
CAD S/P CABG (2015)
-s/p CABG
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
History of PPM
History of Seizures
-Continue home Carbamazepine
Pituitary adenoma
-Continue home cabergoline
Mild to moderate mitral regurgitation
Mild aortic stenosis
Mild aortic regurgitation
Mild to moderate tricuspid regurgitation
SSS S/P Micra Leadless PPM
-Continue outpatient monitoring in device clinic
DVT Prophylaxis: MACHINE PIE MAKER eliquis
Code Status: DNR
Anticipated Discharge: > 48 hours
Subjective/Interval History
-
Date of Service: December 08, 2024
Patient was seen and examined. He denied any complaints.
Objective Data
-
Labs:
Laboratory Results
12/08/24
04:07
WBC 9.9
Hgb 13.4
Hct 41.1
Plt Count 250
Sodium 143
Potassium 3.8
Chloride 100
Carbon Dioxide 37 H
BUN 35 H
Creatinine 0.7
Glucose 94
Calcium 8.4
Vital Signs:
Vital Signs
Temp Pulse Resp BP Pulse Ox
97.5 F 85 22 120/61 96
12/08/24 07:00 12/08/24 07:00 12/08/24 07:00 12/08/24 07:00 12/08/24 07:00
I&O
12/07/24 12/08/24 12/09/24
06:59 06:59 06:59
Output Total 1400 / 1400
Balance -1400 / -1400
[2024-12-08] MEDS: MUCINEX 600 MG PO ×2 (08:56→20:39)
[2024-12-08] MEDS: TEGRETOL 200 MG PO ×3 (08:57→20:39)
[2024-12-08] MEDS: FARXIGA 10 MG PO (08:57)
[2024-12-08] MEDS: CRESTOR 20 MG PO (08:58)
[2024-12-08] MEDS: ELIQUIS 5 MG PO ×2 (08:58→20:38)
[2024-12-08] MEDS: ZESTRIL 20 MG PO (08:58)
[2024-12-08] MEDS: LASIX 40 MG IV ×2 (08:59→15:05)
[2024-12-08] MEDS: TOPROL XL 50 MG PO (08:59)
--- NOTE | 2024-12-08 09:32 | VNURNOTE ---
Chart reviewed. Patient is current with [facility] nursing, PT. Will continue to follow hospital course and DC plans.
[2024-12-08 11:00] VITALS: BP 122/55
[2024-12-08 15:00] VITALS: BP 125/71
[2024-12-08] MEDS: NON-FORMULARY ITEM 1 MG PO (15:03)
--- NOTE | 2024-12-08 16:53 | CM ---
manager sales and marketing reviewed patient's chart and met with patient and patient lives alone in a 2 story home, 3 steps to enter, patient is independent with adl's and uses a walker with ambulation, patient is current with [facility] and will resume services at
discharge, patient is currently on oxygen but patient does not have oxygen in home.
PCP: Jamil Villagomez
Pharmacy: [facility] in [place]
Plan; Home when stable with [facility]
[2024-12-08 19:57] VITALS: BP 104/61
[2024-12-08 21:21] LABS: Glucose - Point of Care 150 mg/dl (70-99)
[2024-12-08 23:08] VITALS: BP 92/58
[2024-12-09] VITALS (8 sets, daily range): BP systolic 103–149; BP diastolic 51–72; PULSE 71; O2SAT 95; BMI 24.8
[2024-12-09] MEDS: TOPROL XL 50 MG PO (07:58)
[2024-12-09] MEDS: MUCINEX 600 MG PO ×2 (07:58→20:29)
[2024-12-09] MEDS: FARXIGA 10 MG PO (07:58)
[2024-12-09] MEDS: ELIQUIS 5 MG PO ×2 (07:58→20:29)
[2024-12-09] MEDS: ZESTRIL 20 MG PO (07:59)
[2024-12-09] MEDS: LASIX 40 MG IV ×2 (07:59→15:01)
[2024-12-09] MEDS: TEGRETOL 200 MG PO ×3 (08:00→21:18)
[2024-12-09] MEDS: CRESTOR 20 MG PO (08:00)
[2024-12-09 08:07] LABS: Hematocrit 40.9 % (39.0-52.0); Hemoglobin 13.2 g/dL (13.0-18.0); Mean Corp Hgb Conc. 32.3 g/dL (33.0-37.0); Mean Corpuscular Hgb 29.6 pg (27.0-31.0); Mean Corpuscular Volume 91.7 fL (80.0-94.0); Mean Platelet Volume 9.8 fL (7.4-10.4); Platelet Count 244 10^3/uL (130-400); Red Blood Cell Count 4.46 10^6/uL (4.70-6.10); Red Cell Dist. Width 14.6 % (11.5-14.5); White Blood Cell Count 8.9 10^3/uL (4.8-10.8)
[2024-12-09 08:16] LABS: Blood Urea Nitrogen 35 mg/dl (9-20); Calcium 8.5 mg/dl (8.4-10.2); Carbon Dioxide 39 mmol/L (22-30); Chloride 96 mmol/L (98-107); Estimated Creatinine Clearance 86 ml/min; Glucose 89 mg/dl (70-99); Magnesium 2.1 mg/dl (1.6-2.3); Potassium 3.7 mmol/L (3.5-5.1); Sodium 141 mmol/L (135-145); eGFR > 60.00
--- NOTE | 2024-12-09 08:44 | W.PN.CD ---
Today's Communication / Plan
-
Cont IV diuresis
Consider PO tomorrow
Impression / Plan
-
I/P: 84M with HFpEF, CAD s/p CABG, permanent atrial fibrillation on Eliquis, PPM (MDT Kiara neri), HTN, dyslipidemia, seizure disorder, and pituitary macroadenoma who presented to the ER with acute on chronic HF
Outpatient phototypesetting equipment monitor: Dr. Moreno
Acute hypoxic respiratory failure, in the setting of HFpEF & PNA
-Diuresis with furosemide, antibiotics per primary
-Currently on 4L NC, wean as tolerated
HFpEF, acute on chronic
-cont diuresis with furosemide 40mg IV BID; weight is 182 lbs dry weight appears around 175-180 lbs
-He is on Jardiance at home, he reports it causes fatigue, trial Farxiga here
-Trend daily weight, I/O, and BMP with diuresis
-HF education
-Follow up echocardiogram given hypoxia
CAP, per primary
Abnormal troponin, non ischemic myocardial injury in the setting of acute heart failure & acute illness (PNA)
-Peak 0.071 at arrival & trended down
-Chest pain free
Permanent atrial fibrillation
-Rate controlled on metoprolol succinate
-No plan for rhythm control
-Oral Anticoagulation: Apixaban 5mg BID, he denies missed doses and abnormal bleeding
-[id number]: score at least 5 (Heart failure, HTN, age 75 or more, Vascular disease)
CAD S/P CABG (2016)
-Stable without chest pain
-No role for ASA given systemic AC
-Continue current medical therapy
HTN, stable, follow with diuresis
Valvular heart disease
-Mild to moderate mitral regurgitation
-Mild aortic stenosis
-Mild aortic regurgitation
-Mild to moderate tricuspid regurgitation
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
Pituitary adenoma, on cabergoline
Seizure disorder
SUBJECTIVE:
Continues to have a cough feels slightly SOB
Physical Exam
Vital Signs/Labs
Vital Signs
Temp Pulse Resp BP Pulse Ox
97.6 F 79 22 149/72 98
12/09/24 07:00 12/09/24 07:58 12/09/24 07:00 12/09/24 07:58 12/09/24 07:00
12/08/24 12/09/24 12/10/24
06:59 06:59 06:59
Actual Weight 186 lb 3 oz 182 lb 6 oz
12/09/24 07:23
12/09/24 07:23
Magnesium 2.1 mg/dl (1.6-2.3) 12/09/24 07:23
TSH 2.65 uIU/ml (0.47-4.68) 12/07/24 15:42
12/07/24
15:42
Nxg-[id number]-[id number] Pept 8840
LAB Results
12/07/24 12/07/24 12/08/24
15:42 21:21 04:07
Troponin I 0.071 H* 0.057 H* 0.041 H* D
Physical Exam
Constitutional: No acute distress
EENT: Anicteric
Cardiovascular: Rhythm/rate is irregular and Pedal edema present
Respiratory: Respiratory effort normal, Rhonchi Present and Other (coarse breath sounds )
GI: Soft
Neuro/Psych: AO x 3
Data Reviewed
-
Date of Service: December 09, 2024
EKG: Tracing Personally Visualized and interpreted (af)
Echo: Report Reviewed by me
Labs: Labs Reviewed by me
--- NOTE | 2024-12-09 13:04 | W.PN.HOSP.TC ---
Today's Communication/Plan
-
Continue IV Diuresis
Assessment / Plan
Assessment / Plan
Physical Exam
General: Appears Chronically Ill
HEENT: Normocephalic
Respiratory: Clear to Auscultation Bilaterally
Cardiac: S1/S2 and Irregular Rhythm
GI: Soft and Non Tender
Musculoskeletal: Other (b/l 1+ lower extremity edema)
Skin: Warm and Dry
Neuro: AAO x 3
Psych: Calm
Assessment/Plan
84 y/o male with past medical history of CAD, CHF, PPM, HTN, HLD, and seizures who presented to the ER with shortness of breath. He was noted to have elevated BNP and appears fluid overloaded on exam with swelling and elevated JVP. CXR with
possible pneumonia and patient with significantly increased fatigue.
Triage VS: T 97.5, P 67, RR 22, BP 109/67, SpO2 87%
LABS: WBC 9.2, Hg 14.1, PLT 254, Na 142, K+ 3.8, CO2 36, BUN 33, Cr 0.8, Glucose 104, T. Bili 0.4, AST 30, ALT 39, Trop 0.071, BNP 8840
CXR
IMPRESSION:
Small to moderate right pleural effusion with associated atelectasis and/or pneumonia.
MAR: Lasix 80mg IV x 1
Severe Acute on Chronic Heart Failure preserved EF Exacerbation
Fatigue associated with CHF exacerbation
-Per reports, patient's partner wanted patient to go to the ER several days prior, but patient refused to do so
-TTE 10/14/24 with EF 50-55%; mild to moderate AR, mild , mild to moderate TR
-recently admitted 10/28 for CHF exacerbation
-s/p Lasix 80mg IV x 1; continue Lasix 40mg IV BID
-daily weights, strict I/O
-Cardiology consult
-Last hospitalization Jardiance was stopped, but then went back on it which helped --> patient reported Jardiance causes him Fatigue, switched to Farxiga
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
On Chest X-Ray: Small to moderate right pleural effusion likely extending into the right minor fissure. Cannot exclude right basilar opacification such as atelectasis and/or pneumonia
-Procalcitonin negative - antibiotics (Ceftriaxone/Azithromycin) stopped on December 07, 2024 evening
Non ischemic myocardial injury
-2/2 above, trend Troponin
CAD S/P CABG (2015)
-s/p CABG
-SHINGLE BOLT CUTTER Eliquis
History of PPM
History of Seizures
-Continue home Carbamazepine
Pituitary adenoma
-Continue home cabergoline
Mild to moderate mitral regurgitation
Mild aortic stenosis
Mild aortic regurgitation
Mild to moderate tricuspid regurgitation
SSS S/P Micra Leadless PPM
-Continue outpatient monitoring in device clinic
DVT Prophylaxis: SHINGLE BOLT CUTTER eliquis
Code Status: DNR
Anticipated Discharge: 24 - 48 hours
Subjective/Interval History
-
Date of Service: December 09, 2024
Patient was seen and examined. He denied any chest pain or shortness of breath.
Objective Data
-
Labs:
Laboratory Results
12/09/24
07:23
WBC 8.9
Hgb 13.2
Hct 40.9
Plt Count 244
Sodium 141
Potassium 3.7
Chloride 96 L
Carbon Dioxide 39 H
BUN 35 H
Creatinine 0.7
Glucose 89
Calcium 8.5
Vital Signs:
Vital Signs
Temp Pulse Resp BP Pulse Ox
97.6 F 66 20 103/63 98
12/09/24 11:00 12/09/24 11:00 12/09/24 11:00 12/09/24 11:00 12/09/24 11:00
I&O
12/08/24 12/09/24 12/10/24
06:59 06:59 06:59
Intake Total 1420 / 1420
Output Total 1400 / 1400
Balance -1400 / -1400 1420 / 1420
--- NOTE | 2024-12-09 16:07 | CM ---
Chart reviewed and plan is for patient to return to home with [facility] and caregivers, patient is currently requiring 4 liters of oxygen, patient did not need oxygen at home.
Plan; Home with [facility] will follow for oxygen needs.
[2024-12-09] MEDS: TYLENOL 650 MG PO (22:38)
[2024-12-10 03:28] VITALS: BP 111/54
[2024-12-10 07:30] VITALS: BP 130/82
[2024-12-10 07:55] LABS: Hematocrit 41.2 % (39.0-52.0); Hemoglobin 13.2 g/dL (13.0-18.0); Mean Corpuscular Hgb 29.5 pg (27.0-31.0); Mean Corpuscular Volume 92.2 fL (80.0-94.0); Mean Platelet Volume 10.2 fL (7.4-10.4); Platelet Count 254 10^3/uL (130-400); Red Blood Cell Count 4.47 10^6/uL (4.70-6.10); Red Cell Dist. Width 14.5 % (11.5-14.5); White Blood Cell Count 8.6 10^3/uL (4.8-10.8)
[2024-12-10 08:15] LABS: Blood Urea Nitrogen 37 mg/dl (9-20); Calcium 8.5 mg/dl (8.4-10.2); Carbon Dioxide 40 mmol/L (22-30); Chloride 93 mmol/L (98-107); Estimated Creatinine Clearance 75 ml/min; Glucose 97 mg/dl (70-99); Magnesium 2.1 mg/dl (1.6-2.3); Potassium 3.6 mmol/L (3.5-5.1); Sodium 139 mmol/L (135-145); eGFR > 60.00
[2024-12-10] MEDS: ELIQUIS 5 MG PO (08:18)
[2024-12-10] MEDS: LASIX 40 MG IV (08:19)
[2024-12-10] MEDS: TOPROL XL 50 MG PO (08:19)
[2024-12-10] MEDS: CRESTOR 20 MG PO (08:19)
[2024-12-10] MEDS: MUCINEX 600 MG PO (08:19)
[2024-12-10] MEDS: TEGRETOL 200 MG PO ×2 (08:19→16:27)
[2024-12-10] MEDS: FARXIGA 10 MG PO (08:19)
[2024-12-10] MEDS: ZESTRIL 20 MG PO (08:20)
--- NOTE | 2024-12-10 08:23 | W.PN.HOSP.TC ---
Today's Communication/Plan
-
Discharge today
Assessment / Plan
Assessment / Plan
Physical Exam
General: Appears Chronically Ill
HEENT: Normocephalic
Respiratory: Clear to Auscultation Bilaterally
Cardiac: S1/S2 and Irregular Rhythm
GI: Soft and Non Tender
Musculoskeletal: Other (b/l 1+ lower extremity edema)
Skin: Warm and Dry
Neuro: AAO x 3
Psych: Calm
Assessment/Plan
84 y/o male with past medical history of CAD, CHF, PPM, HTN, HLD, and seizures who presented to the ER with shortness of breath. He was noted to have elevated BNP and appears fluid overloaded on exam with swelling and elevated JVP. CXR with
possible pneumonia and patient with significantly increased fatigue.
Triage VS: T 97.5, P 67, RR 22, BP 109/67, SpO2 87%
LABS: WBC 9.2, Hg 14.1, PLT 254, Na 142, K+ 3.8, CO2 36, BUN 33, Cr 0.8, Glucose 104, T. Bili 0.4, AST 30, ALT 39, Trop 0.071, BNP 8840
CXR
IMPRESSION:
Small to moderate right pleural effusion with associated atelectasis and/or pneumonia.
MAR: Lasix 80mg IV x 1
Severe Acute on Chronic Heart Failure preserved EF Exacerbation
Fatigue associated with CHF exacerbation
-Per reports, patient's partner wanted patient to go to the ER several days prior, but patient refused to do so
-TTE 10/14/24 with EF 50-55%; mild to moderate AR, mild , mild to moderate TR
-recently admitted 10/28 for CHF exacerbation
-s/p Lasix 80mg IV x 1; continue Lasix 40mg IV BID -- okay to discharge patient on PO Lasix 80 mg daily (discussed with general maintenance engineer) (patient was at 60 mg of daily Furosemide at home previously)
-daily weights, strict I/O
-Cardiology consult
-Last hospitalization Jardiance was stopped, but then went back on it which helped --> patient reported Jardiance causes him Fatigue, switched to Farxiga
-Patient does not need home oxygen on discharge
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
On Chest X-Ray: Small to moderate right pleural effusion likely extending into the right minor fissure. Cannot exclude right basilar opacification such as atelectasis and/or pneumonia
-Procalcitonin negative - antibiotics (Ceftriaxone/Azithromycin) stopped on December 07, 2024 evening
Non ischemic myocardial injury
-/2 above, trend Troponin
CAD S/P CABG (2015)
-s/p CABG
-STAIR BUILDER Eliquis
Permanent Atrial Fibrillation
-Continue beta gonzalo and Eliquis 5 mg BID
History of PPM
History of Seizures
-Continue home Carbamazepine
Pituitary adenoma
-Continue home cabergoline
Mild to moderate mitral regurgitation
Mild aortic stenosis
Mild aortic regurgitation
Mild to moderate tricuspid regurgitation
SSS S/P Micra Leadless PPM
-Continue outpatient monitoring in device clinic
DVT Prophylaxis: STAIR BUILDER eliquis
Code Status: DNR
More than 30 minutes spent in discharge including
Final examination of the patient
Summarizing hospital stay
Instructions for continuing care to all relevant caregivers
Preparation of discharge records, prescriptions, and referral forms
Total time spent (in minutes): 38
Anticipated Discharge: Today
Subjective/Interval History
-
Date of Service: December 10, 2024
Patient was seen and examined. He denied any chest pain or shortness of breath; it appears his clinical condition improved; he appeared to be breathing better than previously.
Objective Data
-
Labs:
Laboratory Results
12/10/24
07:00
WBC 8.6
Hgb 13.2
Hct 41.2
Plt Count 254
Sodium 139
Potassium 3.6
Chloride 93 L
Carbon Dioxide 40 H
BUN 37 H
Creatinine 0.8
Glucose 97
Calcium 8.5
Vital Signs:
Vital Signs
Temp Pulse Resp BP Pulse Ox
98.2 F 74 18 111/54 95
12/10/24 03:28 12/10/24 03:28 12/10/24 03:28 12/10/24 03:28 12/10/24 03:28
I&O
12/09/24 12/10/24 12/11/24
06:59 06:59 06:59
Intake Total 1420 / 1420 1320 / 1320
Balance 1420 / 1420 1320 / 1320
[2024-12-10 10:32] VITALS: BMI 25.4
[2024-12-10 11:35] VITALS: BP 135/73
--- NOTE | 2024-12-10 12:09 | W.PN.CD ---
Today's Communication / Plan
-
Switch to p.o. Lasix 80 mg daily
Evaluate for home oxygen therapy
Impression / Plan
-
I/P: 84M with HFpEF, CAD s/p CABG, permanent atrial fibrillation on Eliquis, PPM (MDT Kiara neri), HTN, dyslipidemia, seizure disorder, and pituitary macroadenoma who presented to the ER with acute on chronic HF
Outpatient phone circuit operator: Dr. Moreno
Acute hypoxic respiratory failure, in the setting of HFpEF & PNA
-Diuresis with furosemide, antibiotics per primary
-Currently on 4L NC, wean as tolerated
-Assess for home O2 given recurrent admissions for hypoxia
HFpEF, acute on chronic
-TTE stable this admission
-He is on Jardiance at home, he reports it causes fatigue, trial Farxiga here
-Trend daily weight, I/O, and BMP with diuresis
-HF education
-Switch to PO duiresis and increase to 80mg daily (60mg at home prior to admission)
CAP, per primary
Abnormal troponin, non ischemic myocardial injury in the setting of acute heart failure & acute illness (PNA)
-Peak 0.071 at arrival & trended down
-Chest pain free
Permanent atrial fibrillation
-Rate controlled on metoprolol succinate
-No plan for rhythm control
-Oral Anticoagulation: Apixaban 5mg BID, he denies missed doses and abnormal bleeding
-[id number]: score at least 5 (Heart failure, HTN, age 75 or more, Vascular disease)
CAD S/P CABG (2016)
-Stable without chest pain
-No role for ASA given systemic AC
-Continue current medical therapy
HTN, stable, follow with diuresis
Valvular heart disease
-Mild to moderate mitral regurgitation
-Mild aortic stenosis
-Mild aortic regurgitation
-Mild to moderate tricuspid regurgitation
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
Pituitary adenoma, on cabergoline
Seizure disorder
SUBJECTIVE:
No CV complaints
Physical Exam
Vital Signs/Labs
Vital Signs
Temp Pulse Resp BP Pulse Ox
98.0 F 71 18 135/73 93
12/10/24 11:35 12/10/24 11:35 12/10/24 11:35 12/10/24 11:35 12/10/24 11:35
12/09/24 12/10/24 12/11/24
06:59 06:59 06:59
Actual Weight 182 lb 6 oz 186 lb 15.232 oz
12/10/24 07:00
12/10/24 07:00
Magnesium 2.1 mg/dl (1.6-2.3) 12/10/24 07:00
TSH 2.65 uIU/ml (0.47-4.68) 12/07/24 15:42
12/07/24
15:42
Cbt-I-Ajyfjyxzlxs Pept 8840
LAB Results
12/07/24 12/07/24 12/08/24
15:42 21:21 04:07
Troponin I 0.071 H* 0.057 H* 0.041 H* D
Physical Exam
Constitutional: No acute distress and Comfortable
Cardiovascular: Pedal edema is absent, Rhythm/rate is irregular and Murmur/rub/gallop absent
Respiratory: Respiratory effort normal and Lungs clear to auscul.
Data Reviewed
-
Date of Service: December 10, 2024
Medical Decision Making: Reviewed Test Results, Independent Historian Assessment, Test Interpretation and Review of Case with other Provider
EKG: Tracing Personally Visualized and interpreted
Echo: Report Reviewed by me
Labs: Labs Reviewed by me
[2024-12-10 15:33] VITALS: BP 96/58
--- NOTE | 2024-12-10 15:58 | CM ---
Chart reviewed and patient does not require oxygen, plan is to home with [facility] and caregivers.
Plan; Home with [facility]
== END 2024-12-10 18:03 | disposition home health service (06) | DRG 291 ==
LOC: 4 WEST ACU 17:52
PROVIDERS: ADMITTING PHYSICIAN Student in an Organized Health Care Education/Training Program; ATTENDING PHYSICIAN Hospitalist; CONSULT PHYSICIAN Internal Medicine Cardiovascular Disease; EMERGENCY PHYSICIAN Emergency Medicine; FAMILY PHYSICIAN Internal Medicine
DX: I11.0 Hypertensive heart disease with heart failure (principal); I50.33 Acute on chronic diastolic (congestive) heart failure; J18.9 Pneumonia, unspecified organism; I48.21 Permanent atrial fibrillation; I25.10 Atherosclerotic heart disease of native coronary artery without angina pectoris; E78.00 Pure hypercholesterolemia, unspecified; E11.9 Type 2 diabetes mellitus without complications; I34.0 Nonrheumatic mitral (valve) insufficiency; I5A Non-ischemic myocardial injury (non-traumatic); Z66 Do not resuscitate; Z79.01 Long term (current) use of anticoagulants; Z79.84 Long term (current) use of oral hypoglycemic drugs; Z95.0 Presence of cardiac pacemaker
CPT/HCPCS: 93308; 71046; 80048; 80053; 80156; 82962; 83735; 83880; 84145; 84443; 84484; 85025; 85027; 87502; 87811; 93005; 96374; 97162; 97530; 99285

== ENCOUNTER → 2024-12-30 17:47 | Outpatient (REF) | payer MEDICARE, BC, SELFPAY ==
[2024-12-30 18:40] LABS: Albumin 3.6 g/dl (3.5-5.0); Blood Urea Nitrogen 40 mg/dl (9-20); Calcium 8.6 mg/dl (8.4-10.2); Carbon Dioxide 33 mmol/L (22-30); Chloride 91 mmol/L (98-107); Glucose 87 mg/dl (70-99); Phosphorus 4.5 mg/dl (2.5-4.5); Potassium 3.6 mmol/L (3.5-5.1); Sodium 133 mmol/L (135-145); eGFR > 60.00
== END ==
LOC: CLAB 17:47
PROVIDERS: ATTENDING PHYSICIAN Internal Medicine
DX: I50.9 Heart failure, unspecified (principal); E86.0 Dehydration; N18.1 Chronic kidney disease, stage 1
CPT/HCPCS: 36415; 80048; 80069

== ENCOUNTER → 2025-01-07 13:44 | Outpatient (REF) | payer MEDICARE, BC, SELFPAY | LOC: MRI 3T 13:44 | PROVIDERS: ATTENDING PHYSICIAN Internal Medicine Endocrinology, Diabetes & Metabolism; FAMILY PHYSICIAN Internal Medicine | DX: D35.2 Benign neoplasm of pituitary gland (principal) | CPT/HCPCS: 70553; A9575 ==

== ENCOUNTER → 2025-01-23 13:02 | Outpatient (REF) | payer MEDICARE, BC, SELFPAY | LOC: RAD 13:02 | PROVIDERS: ATTENDING PHYSICIAN Internal Medicine; FAMILY PHYSICIAN Internal Medicine | DX: J90 Pleural effusion, not elsewhere classified (principal) | CPT/HCPCS: 71046 ==

== ENCOUNTER → 2025-02-13 11:30 | Outpatient (REF) | payer MEDICARE, BC, SELFPAY ==
[2025-02-13 14:56] LABS: Blood Urea Nitrogen 39 mg/dl (9-20); Calcium 8.8 mg/dl (8.4-10.2); Carbon Dioxide 27 mmol/L (22-30); Chloride 104 mmol/L (98-107); Glucose 136 mg/dl (70-99); HDL Cholesterol 58 mg/dl; LDL Cholesterol, Calculated 76 mg/dl; Potassium 4.5 mmol/L (3.5-5.1); Sodium 138 mmol/L (135-145); Total Cholesterol 156 mg/dl (50-199); Triglyceride 113 mg/dl (10-149); Very Low Density Lipoprotein 22 mg/dl (0-30); eGFR > 60.00
[2025-02-13 15:16] LABS: LDH 209 U/L (120-246)
== END ==
LOC: CLAB 11:30
PROVIDERS: ATTENDING PHYSICIAN Internal Medicine
DX: I50.30 Unspecified diastolic (congestive) heart failure (principal); Z13.220 Encounter for screening for lipoid disorders
CPT/HCPCS: 36415; 80048; 80061; 83615

== ENCOUNTER → 2025-05-07 15:35 | Outpatient (REF) | payer MEDICARE, BC, SELFPAY ==
[2025-05-07 16:17] LABS: Albumin 4.1 g/dl (3.5-5.0); Blood Urea Nitrogen 56 mg/dl (9-20); Calcium 9.2 mg/dl (8.4-10.2); Carbon Dioxide 30 mmol/L (22-30); Chloride 96 mmol/L (98-107); Glucose 73 mg/dl (70-99); Potassium 5.0 mmol/L (3.5-5.1); Sodium 133 mmol/L (135-145); eGFR > 60.00
== END ==
LOC: REG 15:35
PROVIDERS: ATTENDING PHYSICIAN Internal Medicine
DX: I50.9 Heart failure, unspecified (principal); Z95.0 Presence of cardiac pacemaker
CPT/HCPCS: 36415; 80069; 83880

== ENCOUNTER → 2025-06-09 14:16 | Outpatient (REF) | payer MEDICARE, BC, SELFPAY ==
[2025-06-09 15:36] LABS: ALT (SGPT) 37 U/L (0-50); AST (SGOT) 32 U/L (17-59); Albumin 4.0 g/dl (3.5-5.0); Alkaline Phosphatase 126 U/L (38-126); Blood Urea Nitrogen 39 mg/dl (9-20); Calcium 9.1 mg/dl (8.4-10.2); Carbon Dioxide 32 mmol/L (22-30); Chloride 99 mmol/L (98-107); Glucose 93 mg/dl (70-99); Potassium 4.5 mmol/L (3.5-5.1); Sodium 139 mmol/L (135-145); Total Protein 6.8 g/dl (6.3-8.2); eGFR > 60.00
[2025-06-09 16:12] LABS: TSH 2.50 uIU/ml (0.47-4.68)
== END ==
LOC: REG 14:16
PROVIDERS: ATTENDING PHYSICIAN Internal Medicine Endocrinology, Diabetes & Metabolism; FAMILY PHYSICIAN Internal Medicine; REFERRING PHYSICIAN Ophthalmology
DX: D35.2 Benign neoplasm of pituitary gland (principal)
CPT/HCPCS: 36415; 80053; 84146; 84270; 84402; 84403; 84439; 84443

== ENCOUNTER → 2025-07-15 13:12 | Outpatient (REF) | payer MEDICARE, BC, SELFPAY ==
[2025-07-15 14:39] LABS: Albumin 4.1 g/dl (3.5-5.0); Blood Urea Nitrogen 35 mg/dl (9-20); Calcium 9.0 mg/dl (8.4-10.2); Chloride 96 mmol/L (98-107); Glucose 84 mg/dl (70-99); Potassium 4.7 mmol/L (3.5-5.1); Sodium 136 mmol/L (135-145); eGFR > 60.00
[2025-07-15 14:47] LABS: Carbon Dioxide 34 mmol/L (22-30)
== END ==
LOC: REG 13:12
PROVIDERS: ATTENDING PHYSICIAN Internal Medicine
DX: I50.9 Heart failure, unspecified (principal); I25.10 Atherosclerotic heart disease of native coronary artery without angina pectoris; I48.20 Chronic atrial fibrillation, unspecified
CPT/HCPCS: 36415; 80069; 83880